=== PATIENT | female | born 1995 | race Caucasian/White ===

== ENCOUNTER 2022-03-16 12:30 | Outpatient (CLI) | payer OTHER, SELFPAY ==
--- NOTE | ~2022-03-16 | US_ITS ---
EXAMINATION: US OB /maternal detail DATE: 03/16/2022 13:46 INDICATION: Second trimester anatomic survey TECHNIQUE: Real-time ultrasound of the pelvis was performed. COMPARISON: None. FINDINGS: There is a single living fetus in breech presentation. The placenta is anterior and 8 mm from the int ernal cervical os. heart rate is 146 beats per minute (bpm). cardiac activity and movement are noted. The amniotic fluid index is subjectively normal. The cervical length is 5.1 cm. The following anatomy was identified as normal: 4 chamber heart 3 vessel cord cord insertion kidneys urinary bladder stomach spine diaphragm ventricles cisterna magna cerebellum The following biometric data were obtained: Biparietal diameter (BPD): 3.6 cm; head circumference (HC): 13.7 cm; abdominal circumference (AC): 12 .7 cm; femur length (FL): 2.6 cm. The femoral length to head circumference ratio is greater than two standard deviations above the mean . Estimated weight is 220 g +/- 33 g, which correlates with the 3rd percentile when 08/08/2022 is used as estimated date of delivery. As single measurements, these parameters are each equal to the following estimated gestational ages w ith ranges of +/- 2 standard deviations: BPD: 17 weeks 0 days +/- 1 weeks 1 days. HC: 17 weeks 1 days +/- 1 weeks 1 days. AC: 18 weeks 2 days +/- 2 weeks 0 days. FL: 18 weeks 0 days +/- 1 weeks 3 days. estimated gestational age based solely on measurements from this exam is 17 weeks 4 days +/- 1 weeks 2 days. IMPRESSION: 1. Single living fetus in breech presentation. 2. Estimated weight is 220 g +/- 33 g, which correlates with the 3rd percentile when 08/08/2022 is used as estimated date of delivery. 3. Low-lying placenta. 4. Femoral length to head circumference ratio greater than two standard deviations above the mean. Reviewed, dictated and finalized at location B. IMPRESSION: 1. Single living fetus in breech presentation. 2. Estimated weight is 220 g +/- 33 g, which correlates with the 3rd perc entile when 08/08/2022 is used as estimated date of delivery. 3. Low-lying placenta. 4. Femoral length to head circumference ratio greater than two standard deviati ons above the mean.
== END 2022-03-16 12:31 | disposition home or self-care (01) ==
PROVIDERS: Visit Provider Obstetrics & Gynecology
DX: Z34.92 Encounter for supervision of normal pregnancy, unspecified, second trimester (principal); Z3A.17 17 weeks gestation of pregnancy
CPT/HCPCS: 76805

== ENCOUNTER 2022-06-15 10:36 | Outpatient (CLI) | payer OTHER, SELFPAY ==
--- NOTE | ~2022-06-15 | US_ITS ---
EXAMINATION: US OB follow up DATE: 06/15/2022 11:29 INDICATION: Small for gestational age during third trimester TECHNIQUE: Real-time ultrasound of the pelvis was performed. The interpreting radiologist was not pre sent for the study. COMPARISON: None. FINDINGS: There is a single living fetus in vertex presentation. The placenta is anterior. heart rate is 143 beats per minute (bpm). The amniotic fluid index is 20.2 cm, which is normal (5th%-95%: 8.8-83. 8 cm at 21 weeks estimated gestational age). The following biometric data were obtained: BPD: 7.3 cm -> 29 weeks 2 days Head circumference: 26.4 cm -> 28 weeks 5 days Abdominal circumference: 27.5 cm -> 31 weeks 4 days Femur length: 6.2 cm -> 32 weeks 1 days Head circumference to abdominal circumference ratio: 0.96 (normal range 0.97-1.18). These measurements are otherwise concordant. Estimated weight: 1721 g (+/-) 258 g or 3 lbs. 13 oz. (+/-) 9 oz. IMPRESSION: 1. Single living fetus in vertex presentation with heart rate of 143 bpm. 2. Normal amniotic fluid index of 20.2 cm. 3. Estimated weight is 35th percentile by Hadlock criteria when 08/17/2022 is used as the estim ated date of delivery (GERALD). Please correlate with clinical information or earlier ultrasounds for mo st accurate GERALD. 4. Head circumference to abdominal circumference ratio 0.96 slightly below the normal range of 0.97-1 .18. Reviewed, dictated and finalized at location A. IMPRESSION: 1. Single living fetus in vertex presentation with heart rate of 143 bpm. 2. Normal amniotic fluid index of 20.2 cm. 3. Estimated weight is 35th percentile by Hadlock criteria when 2 is used as the estimated date of delivery (GERALD). Please correlate with clinic al information or earlier ultrasounds for most accurate GERALD. 4. Head circumference to abdominal circumference ratio 0.96 slightly below the normal range of 0.97-1.18.
== END 2022-06-15 10:37 | disposition home or self-care (01) ==
LOC: ANHIMG 10:44
PROVIDERS: Visit Provider Obstetrics & Gynecology
DX: O36.5999 Maternal care for other known or suspected poor fetal growth, unspecified trimester, other fetus (principal); Z3A.00 Weeks of gestation of pregnancy not specified
CPT/HCPCS: 76816

== ENCOUNTER 2022-12-10 11:56 | Emergency (ER) | payer OTHER, SELFPAY ==
[2022-12-10 12:04] VITALS: BP 119/71; PULSE 65; RESP 16; TEMP 36.7; O2SAT 100
--- NOTE | 2022-12-10 12:28 | ED.URI ---
HPI - URI/Sore Throat General Chief Complaint: Upper Respiratory Infection Stated Complaint: congestion/throat Time Seen by Provider: 12/10/22 12:29 Source: patient, RN notes reviewed and old records reviewed Mode of arrival: ambulatory Limitations: no limitations History of Present Illness HPI Narrative: 27 year old female who presents to [facility] care with 2 day history of sore throat, fatigue some nausea and sinus congestion. Patient reports she is unsure of fevers but has noted some sweats. Patient reports that she has had some nausea, denies any vomiting or diarrhea, Patient reports that she has been taking Ibuprofen for her discomfort. Patient reports that she has been COVID vaccinated and has had flu shot. Patient reports that children had strep last week. MD elicited complaint: sore throat, rhinorrhea and nasal congestion Onset (ago): day(s) (2) Pain scale (0-10): 8 Able to tolerate fluids by mouth: Yes Exacerbating factors: swallowing Treatments prior to arrival: ibuprofen Related Data Home Medications Medication Instructions Recorded Confirmed aripiprazole 10 mg tablet (Abilify) 10 mg PO DAILY 12/10/22 12/10/22 Allergies Allergy/AdvReac Type Severity Reaction Status Date / Time Penicillins Allergy Anaphylaxis Verified 12/10/22 12:10 Review of Systems Review of Systems: CONSTITUTIONAL: Reports malaise, chills, sweats, unsure if fever. EYES: Denies visual changes, redness, or discharge. ENT: Reports no rhinorrhea, positive for nasal congestion, sinus pain, no otalgia positive for sore throat. CARDIOVASCULAR: Denies chest pain, palpitations, or edema. RESPIRATORY: Reports no cough.? Denies dyspnea. GASTROINTESTINAL: Denies abdominal pain, positive nausea,no vomiting, diarrhea SKIN: Denies rash or itching. MUSCULOSKELETAL: Denies myalgia. NEUROLOGIC: Denies headache. All systems reviewed & are unremarkable except as noted in HPI and below PMFSH Past Medical History Medical History (Updated 12/12/22 @ 11:51 by Betsy Lemons NP) Bipolar 1 disorder, mixed Surgical History Surgical History (Updated 12/12/22 @ 11:47 by Betsy Lemons NP) Previous section x2 Social History Social History (Updated 12/12/22 @ 11:45 by Betsy Lemons NP) Smoking status: Never smoker Living arrangements: with family Gender identity (if verbalized by the patient): Female Comments At time of signature, agree with nursing past medical, surgical, social and family history. There is no relevant family history pertinent to the presenting complaint Exam Narrative: GENERAL: Well-appearing, well-nourished, and in no acute distress. HEAD: Normocephalic EYES: PERRLA, conjunctivae clear ENT: Nares clear, turbinates edematous and erythematous, clear discharge. Mucous membranes moist. TM pearly ken with dull light reflex bilaterally; no tragal tenderness. Oropharynx erythematous without lesions. Tonsils red not enlarged and without exudate, no drooling, no hoarseness, no trismus, uvula midline.post nasal drainage noted NECK: Supple. No lymphadenopathy CHEST: Clear to auscultation, breath sounds equal. No wheezing, rhonchi, rales, or stridor. No respiratory distress, speaks in full sentences.no cough noted, SAO2 100% on room air HEART: Regular rate and rhythm. No murmur heard. SKIN: Warm, dry, no rash. NEURO: Alert and oriented x3. PSYCH: Normal mood and affect Course Course Emergency Course: Patient is aware of diagnosis, understands and agrees to treatment plan.? Anticipatory guidance given.? Patient agrees to follow-up as directed and is aware of reasons to seek care at the emergency department. Portions of this record may have been created with voice recognition software Level of Care: Express Care Visit Vital Signs Vital signs: Vital Signs Temperature 36.7 C 12/10/22 12:04 Pulse Rate 65 12/10/22 12:04 Respiratory Rate 16 12/10/22 12:04 Blood Pressure
== END 2022-12-10 12:46 | disposition home or self-care (01) ==
PROVIDERS: Emergency Provider Registered Nurse
DX: J02.9 Acute pharyngitis, unspecified (principal); Z20.818 Contact with and (suspected) exposure to other bacterial communicable diseases; F31.9 Bipolar disorder, unspecified
CPT/HCPCS: 87081; 87880; 99213; G0463

== ENCOUNTER 2024-04-29 16:16 | Emergency (ER) | payer MEDICAID, SELFPAY ==
--- NOTE | ~2024-04-29 | CT_ITS ---
EXAMINATION: CT cervical spine wo con DATE: 04/29/2024 17:08 INDICATION: Neck pain radiating down the left arm. TECHNIQUE: Computed tomography (CT) of the cervical spine was performed without intravenous contrast. Automated exposure control and iterative reconstruction technique were employed. The dose-length pro duct was 195.84 mGy-cm. COMPARISON: None FINDINGS: There is kyphosis of cervical spine. Vertebral body heights are normal. There is moderately decreased disc height at C5-C6. The following disc levels are specifically discussed: C2-C3: There is no uncovertebral joint osteoarthritis. There is no facet joint osteoarthritis. There is no neural foraminal stenosis. There is no central canal stenosis. C3-C4: There is no uncovertebral joint osteoarthritis. There is mild right facet joint osteoarthritis . There is no neural foraminal stenosis. There is no central canal stenosis. C4-C5: There is no uncovertebral joint osteoarthritis. There is mild left facet joint osteoarthritis. There is no neural foraminal stenosis. There is mild central canal stenosis. C5-C6: There is mild left uncovertebral joint osteoarthritis. There is no facet joint osteoarthritis. There is moderate left neural foraminal stenosis. There is mild central canal stenosis. There is sev ere stenosis of left lateral recess. C6-C7: There is no uncovertebral joint osteoarthritis. There is no facet joint osteoarthritis. There is no neural foraminal stenosis. There is no central canal stenosis. C7-T1: There is no uncovertebral joint osteoarthritis. There is mild bilateral facet joint osteoarthr itis. There is no neural foraminal stenosis. There is no central canal stenosis. IMPRESSION: 1. Moderate spondylosis at C5-C6 and mild spondylosis at other levels. Reviewed, dictated and finalized at location A.
[2024-04-29 16:16] VITALS: BP 143/93; PULSE 88; RESP 16; TEMP 36.5; O2SAT 96
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
[2024-04-29] MEDS: ORPHENADRINE CITRATE 30 MG/ML 2 ML VIAL 60 MG IM (16:40)
[2024-04-29] MEDS: predniSONE 20 MG TABLET 40 MG PO (16:41)
[2024-04-29 16:55] LABS: Pregnancy On Board Control Positive; Urine Pregnancy Test Negative
[2024-04-29 17:42] VITALS: BP 127/84; PULSE 67; RESP 20; O2SAT 98
== END 2024-04-29 17:42 | disposition home or self-care (01) ==
LOC: CHSED 17:37
PROVIDERS: Emergency Provider Emergency Medicine
DX: M48.02 Spinal stenosis, cervical region (principal)
CPT/HCPCS: 72125; 81025; 96372; 99284; J2360; J7512

== ENCOUNTER 2024-07-17 07:42 | Emergency (ER) | payer OTHER, SELFPAY ==
[2024-07-17 07:42] VITALS: BP 107/72; PULSE 71; RESP 18; TEMP 36.6; O2SAT 98
--- NOTE | 2024-07-17 08:02 | ED_ITS ---
HPI - General Chief complaint: Urogenital-Female Stated complaint: Time Seen by Provider: 07/17/24 07:44 Source: patient Mode of arrival: ambulatory Limitations: no limitations History of Present Illness HPI Narrative: patient is a 28-year-old female who is about 1 month per history. Last menstrual period was a month ago. She has done 7 tests at home and they were all positive. She is having spotting for the past few days. No blood clots. She has had miscarriages in the past. She is having left greater than right lower pelvic pain which is sharp. Polyuria. Complaint: abdominal pain and vaginal bleeding Onset (ago): day(s) (3) Pain Consistency: intermittent Location: pelvis Severity: mild Severity scale (1-10): 2 Quality: Cramping and Sharp Radiation: pelvis Relieving factors: none Exacerbating factors: none Associated symptoms: abdominal pain and other ( Polyuria) Vaginal discharge: none Vaginal bleeding: light Patient : Yes OB History - Current : no complications OB History - Previous Pregnancies: miscarriage care: none Related Data : 7 Para: 2 Total number of abortions (spontaneous and elective): 4 Allergies Allergy/AdvReac Type Severity Reaction Status Date / Time Penicillins Allergy Anaphylaxis Verified 07/17/24 07:50 Review of Systems Review of Systems: All systems reviewed & are unremarkable except as noted in HPI and below Constitutional: Constitutional: Reports no additional constitutional complaints Eyes: Eyes: Reports no additional eye complaints ENT: Reports system reviewed and no additional complaints, except as documented Cardiovascular: Cardiovascular: Reports no additional cardiovascular complaints Respiratory: Respiratory: Reports no additional respiratory complaints Gastrointestinal: Gastrointestinal: Reports no additional gastrointestinal complaints Genitourinary: Genitourinary: Reports no additional female genitourinary complaints Musculoskeletal: Musculoskeletal: Reports no additional musculoskeletal complaints Integumentary/Breasts: Skin/Breast: Reports system reviewed and no additional complaints, except as docu Neurologic: Reports system reviewed and no additional complaints, except as documented Psychiatric: Psychiatric: Reports no additional psychiatric complaints Endocrine: Endocrine: Reports no additional endocrine complaints Hematologic/Lymphatic: Hematologic/Lymphatic: Reports no additional hematologic/lymphatic complaints Allergic/Immunologic: Allergic/Immunologic: Reports no additional allergic/immunologic complaints PMFSH Past Medical History Medical History Bipolar 1 disorder, mixed Surgical History Surgical History Previous section x2 Social History Social History Smoking status: Never smoker Living arrangements: with family Gender identity (if verbalized by the patient): Female Exam Const: General: healthy appearing Nutritional Appearance: well nourished Orientation/consciousness: patient oriented x3 HENMT: Head: normal to inspection Ears: external ears normal Face/Nose/Sinus: Normal external nose present Eyes: Conjunctivae: conjunctivae normal Pupils: Equal, round and reactive pupils present EOM: EOMs intact bilaterally Neck: Neck: normal visual inspection Chest: Chest palpation & inspection: normal inspection of the chest Resp: Effort & Inspection: normal respiratory effort and not labored Auscultation: clear to auscultation bilaterally and no crackles Cardio: Rate: regular rate Rhythm: regular rhythm Heart sounds: no murmurs GI: Inspection: non-distended GI Palp: Yes Soft to palpation, Yes Tenderness to palpation present (GI) ( left greater than right lower pelvis and suprapubic region), No Guarding due to palpation present (GI), No Rigid due to palpation, No Hernia present, No Palpable mass present and No Rebound tenderness present Auscultation: normal bowel sounds : General: No bladder normal to palpation ( tender) Back/Spine/Pelvis: Back: no CVA tenderness Skin: General skin exam: normal color Rashes: no rashes Wounds: no wounds Neuro: General: patient oriented x3 Cranial nerves: Yes Nystagmus not present Speech: normal speech Extrem: General: normal to inspection Psych: Mental Status: mental status grossly normal Affect: normal affect Attitude: cooperative Course Vital Signs Vital signs: Vital Signs Temperature 36.6 C 07/17/24 07:42 Pulse Rate 71 07/17/24 07:42 Respiratory Rate 18 07/17/24 07:42 Blood Pressure 107/72 07/17/24 07:42 Pulse Oximetry 98 07/17/24 07:42 Oxygen Delivery Room Air 07/17/24 07:42 Temperature 36.6 C 07/17/24 07:42 Pulse Rate 63 07/17/24 09:51 Respiratory Rate 16 07/17/24 09:51 Blood Pressure 111/67 07/17/24 09:51 Pulse Oximetry 100 07/17/24 09:51 Oxygen Delivery Room Air 07/17/24 09:51 MDM - OB/Uterine Contractions MDM Narrative Medical decision making narrative: patient is a 28-year-old female with spotting during 1st trimester . We will do a workup at this time for reassurance. Lab Data Attestation: I reviewed the patient's lab results. 07/17/24 08:10 07/17/24 08:10 Labs: Lab Results 07/17/24 Range/Units 08:10 WBC 6.5 (4.8-10.8) K/mm3 RBC 4.47 (4.20-5.40) M/mm3 Hgb 12.5 (12.0-15.0) g/dL Hct 36.9 (35.0-49.0) % MCV 82.6 (78.0-102.0) fL MCH 28.0 (27.0-31.0) pg MCHC 33.9 (32-36) g/dL RDW 13.6 (11.6-14.4) % Plt Count 207 (150-420) K/mm3 MPV 8.7 L (9.2-11.8) fl Immature Gran % (Auto) 0.5 H (0.0-0.0) % Neut % (Auto) 68.5 (50.0-70.0) % Lymph % (Auto) 24.8 (18.0-42.0) % [place] % (Auto) 5.4 (2.0-11.0) % Eos % (Auto) 0.5 L (1.0-6.0) % Baso % (Auto) 0.3 (0.0-1.0) % Lymph # (Auto) 1.60 (1.10-4.50) K/mm3 [place] # (Auto) 0.35 (0.10-0.90) K/mm3 Eos # (Auto) 0.03 (0.02-0.50) K/mm3 Baso # (Auto) 0.02 (0.00-0.10) K/mm3 Abs Immat Gran (auto) 0.03 H (0.00-0.00) K/mm3 Absolute Neuts (auto) 4.43 (1.70-7.20) K/mm3 Absolute Nucleated RBC 0.00 (0.00-0.00) K/mm3 Nucleated RBC % 0.0 (0-0.0) % PT 11.0 (9.50-12.1) Seconds INR 1.0 APTT 25.4 (23.9-30.70) Sec Sodium 137 (136-145) mmol/L Potassium 3.9 (3.5-5.1) mmol/L Chloride 103 (98-108) mmol/L Carbon Dioxide 27 (21-32) mmol/L Anion Gap 7 (4-12) mmol/L BUN 10 (7-18) mg/dL Creatinine 0.78 (0.55-1.02) mg/dL Estim Creat Clear Calc 70 ml/min Estimated GFR > 60 (59 - ) Glucose 92 (70-99) mg/dL Calculated Osmolality 283 L (285-295) mOsm/kg Calcium 8.8 (8.5-10.1) mg/dL Total Bilirubin 0.5 (0.00-1.00) mg/dL AST 6 L (15-37) U/L ALT 8 L (14-59) U/L Alkaline Phosphatase 89 (46-116) U/L Total Protein 6.8 (6.4-8.2) g/dL Albumin 3.8 (3.4-5.0) g/dL Beta HCG, Quant 480.00 H (0-6) mIU/mL Urine Color Light yellow (Yellow) Urine Appearance Clear (Clear) Urine pH 8.5 H (5.0-8.0) Ur Specific [place] 1.015 (1.010-1.020) Urine Protein Negative (Negative) Urine Glucose (UA) Negative (Negative) Urine Ketones Negative (Negative) Ur Blood (Man) Negative (Negative) Urine Nitrate Negative (Negative) Urine Bilirubin Negative (Negative) Urine Urobilinogen 0.2 (0.2-1.0) mg/dL Leukocyte Esterase Rfl Trace H (Negative) NIKOLE/UL Urine RBC None seen (0-2) /hpf Urine WBC 10-15 H (0-3) /hpf Ur Squamous Epith Cells Few (Few) /hpf Urine Bacteria 1+ H (None) /hpf Discharge Plan Discharge Clinical Impression: First trimester bleeding, UTI (urinary tract infection) Patient Disposition: Home, Self-Care Condition: Stable Instructions: Antibiotic Form, Threatened Miscarriage (ED), Urinary Tract Infection in (ED) Additional Instructions: Please follow-up with the primary doctor in the OBGYN in the next week. Come back to the ER with any new worse abdominal pain or heavy bleeding. Prescriptions: New nitrofurantoin monohyd/m-cryst [Macrobid] 100 mg capsule 100 mg PO BID 7 Days Qty: 14 0RF Rx Instructions: must administer with a meal/food Follow-up/Referrals: UNKNOWN,DOCTOR [Primary Care Provider] - Time of Disposition: 10:06
[2024-07-17 08:17] LABS: Basophils Absolute Auto 0.02 K/mm3 (0.00-0.10); Basophils Percent Auto 0.3 % (0.0-1.0); Eosinophils Absolute Auto 0.03 K/mm3 (0.02-0.50); Eosinophils Percent Auto 0.5 % (1.0-6.0); Hematocrit 36.9 % (35.0-49.0); Hemoglobin 12.5 g/dL (12.0-15.0); Immature Granulocyte Absolute 0.03 K/mm3 (0.00-0.00); Immature Granulocyte Percent A 0.5 % (0.0-0.0); Lymphocytes Percent Auto 24.8 % (18.0-42.0); Mean Corpuscular HGB Conc 33.9 g/dL (32-36); Mean Corpuscular Volume 82.6 fL (78.0-102.0); Mean Platelet Volume 8.7 fl (9.2-11.8); Monocytes Absolute Auto 0.35 K/mm3 (0.10-0.90); Monocytes Percent Auto 5.4 % (2.0-11.0); Neutrophils Absolute Auto 4.43 K/mm3 (1.70-7.20); Neutrophils Percent Auto 68.5 % (50.0-70.0); Platelet Count Result 207 K/mm3 (150-420); Red Blood Count 4.47 M/mm3 (4.20-5.40); Red Cell Distribution Width 13.6 % (11.6-14.4); White Blood Count 6.5 K/mm3 (4.8-10.8)
[2024-07-17 08:20] LABS: Add Urine Microscopic? YES; Appearance Urine Clear (Clear); Bilirubin Urine Negative (Negative); Blood Urine Negative (Negative); Color Urine Light Yellow (Yellow); Glucose Urine UA Negative (Negative); Ketones Urine Negative (Negative); Leukocyte Esterase Ur Trace LEU/UL (Negative); Nitrate Urine Negative (Negative); Protein Urine Negative (Negative); Specific Grav Ur 1.015 (1.010-1.020); Urobilinogen Urine 0.2 mg/dL (0.2-1.0); pH Urine 8.5 (5.0-8.0)
[2024-07-17 08:26] LABS: Bacteria Urine 1+ /hpf; RBC Urine None seen /hpf (0-2); Squamous Epithelial Cell Urine Few /hpf (Few)
[2024-07-17 08:32] LABS: Partial Thromboplastin Time 25.4 Sec (23.9-30.70)
[2024-07-17 08:36] LABS: Anion Gap 7 mmol/L (4-12); Blood Urea Nitrogen 10 mg/dL (7-18); Carbon Dioxide 27 mmol/L (21-32); Chloride 103 mmol/L (98-108); Estimated CRCL calculation 70 ml/min; Estimated Glomerular Filt Rate > 60; Potassium 3.9 mmol/L (3.5-5.1); Sodium 137 mmol/L (136-145)
[2024-07-17 08:37] LABS: Alanine Aminotransferase 8 U/L (14-59); Albumin Level 3.8 g/dL (3.4-5.0); Alkaline Phosphatase 89 U/L (46-116); Aspartate Amino Transferase 6 U/L (15-37); Bilirubin,Total 0.5 mg/dL (0.00-1.00); Calcium 8.8 mg/dL (8.5-10.1); Glucose 92 mg/dL (70-99); Osmolality Calculated 283 mOsm/kg (285-295); Total Protein 6.8 g/dL (6.4-8.2)
[2024-07-17 09:51] VITALS: BP 111/67; PULSE 63; RESP 16; O2SAT 100
--- NOTE | 2024-07-19 14:14 | PC.NURSE ---
PRELIMINARY URINE CULTURE REPORT: PROTEUS MIRABILIS, WILL WAIT ON FINAL C&S PER DR. ALTAMIRANO.
--- NOTE | 2024-07-20 13:14 | PC.NURSE ---
FINAL URINE CULTURE PROTEUS MIRABILIS , MACROBID IS RESISTANCE. NEW ANTIBIOTIC PER DR DESIR.
--- NOTE | 2024-07-21 09:06 | PC.NURSE ---
pt notified of need to change medication for bacteria in urine per urine culture. voiced understanding. informed to stop macrobid. called in new rx Bactrim DS --1 po BID x 7 days called to [facility] with [facility] staff.
== END 2024-07-17 10:07 | disposition home or self-care (01) ==
PROVIDERS: Emergency Provider Emergency Medicine
DX: O20.9 Hemorrhage in early pregnancy, unspecified (principal); O23.41 Unspecified infection of urinary tract in pregnancy, first trimester; N39.0 Urinary tract infection, site not specified; Z3A.00 Weeks of gestation of pregnancy not specified
CPT/HCPCS: 36415; 80053; 81001; 84702; 85025; 85610; 85730; 87086; 87186; 99283

== ENCOUNTER 2025-02-28 13:52 | Observation (INO) | payer MEDICAID, SELFPAY ==
[2025-02-28] VITALS (9 sets, daily range): BP systolic 104–140; BP diastolic 64–82; PULSE 68–86; RESP 20; TEMP 36.7–36.8; O2SAT 97–99; BMI 29.1
--- NOTE | ~2025-02-28 | US_ITS ---
EXAMINATION: US OB BPP wo non-stress DATE: 03/01/2025 8:28 CDT INDICATION: Decelerations TECHNIQUE: Real-time transabdominal obstetric ultrasound. FINDINGS: 7 para 2 AB 4 There is a single intrauterine gestation in vertex presentation. The placenta is posterior without placenta previa. Amniotic fluid index measures 10.4 cm, within normal limits (of 7.7 to 24.9 cm). cardiac activity and movement is noted with a heart rate of 128 beats per minute. Biophysical profile: breathin of 2 movement: 2 of 2 tone: 2 of 2 Amniotic fluid pocket: 2 of 2 Total score: 6 of 8 Approximate gestational age is 36 weeks and 2 days. IMPRESSION: Single intrauterine gestation in posterior presentation. No respiration is visualized, despite prolonged interrogation. Total biophysical profile score of 6 out of 8, consistent with preliminary results, provided at the t sheryl of examination. Reviewed, dictated and finalized at location A. IMPRESSION: Single intrauterine gestation in posterior presentation. No respiration is visualized, despite prolonged interrogation. Total biophysical profile score of 6 out of 8, consistent with preliminary resu lts, provided at the time of examination.
--- NOTE | ~2025-02-28 | US_ITS ---
EXAMINATION: US OB BPP wo non-stress DATE: 03/01/2025 13:11 CDT INDICATION: Biophysical profile performed approximately 4 hours earlier yielding a 6 out of 8 TECHNIQUE: Real-time transabdominal obstetric ultrasound. FINDINGS: There is a single intrauterine gestation in vertex presentation. The placenta is posterior without placenta previa. cardiac activity and movement is noted with a heart rate of 136 beats per minute. Biophysical profile: breathin of 2 movement: 2 of 2 tone: 2 of 2 Amniotic fluid pocket: 2 of 2 Total score: 8 of 8 Amniotic fluid index measures 13.1 cm, within normal limits (of 7.7 to 24.9 cm). IMPRESSION: 1. Single intrauterine gestation in vertex presentation. 2: Total biophysical profile score of 8 out of 8. Reviewed, dictated and finalized at location A.
--- OUTSIDE RECORDS SUMMARY | 2025-02-28 16:31 | XMS_ITS | Clinical Summary ---
Author Organization [facility] Address [address] [place] [address] Phone Care Team Providers Care [employer] Name Role Phone Sammy Garcia MD Primary Care Provider [phone] Herbert Schilling MD Unavailable [phone] Allergies Active Allergy Reactions Criticality Noted Date Comments Penicillins Hives,Shortness of Breath High 6 Medications naproxen (NAPROSYN) 500 MG Tablet Take 1 Tablet by mouth 2 times daily (with meals). 30 Tablet 01/31/2024 Active Immunizations Immunization Administration Dates Next Due Influenza Vaccine, Quadrivalent, PF 04/24/2016 TDAP Vaccine 04/24/2016 Family History Medical History Relation Name Comments No Known Problems Brother No Known Problems Child No Known Problems Father No Known Problems Maternal Grandfather No Known Problems Maternal Grandmother Labor Mother No Known Problems Paternal Grandfather No Known Problems Paternal Grandmother No Known Problems Sister Relation Name Status Comments Brother Child Father Maternal Grandfather Maternal Grandmother Mother Paternal Grandfather Paternal Grandmother Sister Social History Tobacco Use Types Packs/Day Years Used Date Smoking Tobacco: Former Cigarettes Q uit: 03/13/2015 Smokeless Tobacco: Never Alcohol Use Standard Drinks/Week Comments No 0 (1 standard drink = 0.6 oz pur e alcohol) Sexually Active Control Partners Comments Yes Male Comments No Sex and Gender Information Value Date Recorded Sex Assigned at Not on file Legal Sex Female 11:43 PM CDT Gender Identity Not on file Sexual Orientation Not on file Last Filed Vital Signs Vital Sign Reading Time Taken Comments Blood Pressure 110/65 01/31/2024 1:30 AM CDT Pulse 83 01/31/2024 1:30 AM CDT Temperature 36.3 C (97.3 F) 01/30/2024 10:23 PM CDT Respiratory Rate 18 01/31/2024 1:30 AM CDT Oxygen Saturation 100% 01/31/2024 1:30 AM CDT Inhaled Oxygen Concentration - - Weight 59 kg (130 lb) 01/30/2024 10:23 PM CDT Height 154.9 cm (5' 1) 01/30/2024 10:23 PM CDT Body Mass Index 24.56 01/30/2024 10:23 PM CDT Plan of Treatment Health Maintenance Due Date Last Done Comments Hepatitis C Virus (HCV) Screening 1995 Human Papillomavirus (HPV) Immunization (1 - 3-dose series) 12/05/2010 Pap Smear 12/05/2016 SARS-COV-2 Immunization ( season) 2024 01/12/2021 Influenza Immunization (#1) 04/22/202506/23, 06/16/2022, 04/24/2016, Additional history exists Td Immunization Every 10 Years (Adults With 1 Tdap) 04/24/2026 04/24/2016 Respiratory Syncytial Virus (RSV) Immunization (Adult) (1 - 1-dose 75+ series) 12/05/2070 Hepatitis B Immunization Completed 996, 03/23/1996, 1995 DTaP/Tdap/Td Immunization Discontinued 2015, 05/26/2000, 09/26/1997, Additional history exists Meningococcal Immunization (ACWY) Aged Out No longer eligible based on patient's age to complete this topic Pneumococcal Immunization Combined Aged Out No longer eligible based on patient's age to complete this topic Rotavirus Immunization Aged Out No lo nger eligible based on patient's age to complete this topic Insurance MEDICAID [facility] MEDICAID [facility] Advance Directives * Full Code (Latest Code Status on File) Date Activated Date Inactivated Comments 04/13/2016 6:12 PM 04/13/2016 11:44 PM CPR-Full Tr eatment: FULL ARREST: Attempt Resuscitation/CPR wit intubation and mechanical ventilation. PRE-ARREST: Use entire range of life support measures to stabilize the patient. * Full Code Date Activated Date Inactivated Comments 04/02/2016 1:55 PM 04/02/2016 6:19 PM CPR-Full Angelito atment: FULL ARREST: Attempt Resuscitation/CPR wit intubation and mechanical ventilation. PRE-ARREST: Use entire range of life support measures to stabilize the patient. Care Teams Teacher [employer] Relationship Specialty Start Date End Date Sammy Garcia MD [address] [place] [address] [place] [address] PCP - General Family Medicine 05/14/24 Herbert Schilling MD [address] [place] [address] Family Medicine 05/14/24
--- OUTSIDE RECORDS SUMMARY | 2025-02-28 16:31 | XMS_ITS | Encounter Summary ---
Author Organization [facility] Address [address] [facility] [place] [address] Phone Care Team Providers Care Clay Grinder Name Role Phone Hrebert Schilling MD Primary Care Provider [phone] Sammy Garcia MD Primary Care Provider [phone] Herbert Schilling MD Unavailable [phone] Reason for Referral * PT/OT/ST (Routine) - Closed Specialty Diagnoses / Procedures Referred By Contsaleem t Referred To Contact Physical Therapy Diagnoses Spinal stenosis, cervical region Sammy Garcia MD [address] [place] [address] [place] [address] Phone: tel: fax: [facility] [address] [address] Phone: tel: fax: Referral ID Status Reason Start Date Expiration Date Visits Re quested Visits Authorized [id number] Closed 05/11/2024 50 50 Scheduling Instructions Encounter Details Date Type Department Care Team (Late st Contact Info) Description 05/11/2024 Transcribe Orders [facility] [address] [place] [address] Sammy Garcia MD [address] [place] [address] [place] [address] Spinal stenosis, cervical region (Primary Dx) Social History Tobacco Use Types Packs/Day Years Used Date Smoking Tobacco: Never Assessed Comments Unknown Sex and Gender Information Value Date Recorded Sex Assigned at Not on file Legal Sex Female 11:43 PM CDT Gender Identity Not on file Sexual Orientation Not on file documented as of this encounter Plan of Treatment Scheduled Referrals Name Type Priority Associated Diagnoses Orde r Schedule PHYSICAL THERAPY REFERRAL Outpatient Referral Routine Spinal stenosis, cervical region Expected: 05/11/2024, Expires: 05/11/2025 documented as of this encounter Visit Diagnoses Diagnosis Spinal stenosis, cervical region- Primary documented in this encounter Care Teams Clay Grinder Relationship Specialty Start Date End Date Herbert Schilling MD [address] [facility] [place] [address] PCP - General Family Medicine 08/25/21 05/13/24 Sammy Garcia MD [address] [place] [address] [place] [address] PCP - General Family Medicine 05/14/24 Herbert Schilling MD [address] [place] [address] [place] [address] Family Medicine 05/14/24 documented as of this encounter
--- OUTSIDE RECORDS SUMMARY | 2025-02-28 16:31 | XMS_ITS | Clinical Summary ---
Author Organization [facility] at the [facility] Address [address] [place] [address] Care Team Providers Care Bead Wire Insulator Name Role Phone Herbert Schilling MD Primary Care Provider [phone] Herbert Schilling MD Unavailable [phone] No, Physician Unavailable Allergies Active Allergy Reactions Criticality Noted Date Comments Penicillins Anaphylaxis High Medications acetaminophen 500 mg capsuleIndicati ons:Pain Take 2 capsules (1,000 mg total) by mouth every 6 (six) hours as needed for pain 60 tablet 1 07/06/2022 Active gabapentin (NEURONTIN) 100 mg capsule Take 1 capsule (100 mg total) by mouth 3 (three) times a day as needed (incisional burning) 30 capsule 07/06/2022 Active ibuprofen (ADVIL,MOTRIN) 600 mg tabletIndicatio ns:Cramps Take 1 tablet (600 mg total) by mouth every 6 (six) hours as needed for pain 60 tablet 1 07/06/2022 Active ARIPiprazole (ABILIFY) 10 mg tablet Take 1 tablet (10 mg total) by mouth daily Active methylPREDNISol one (MEDROL DOSEPACK) 4 mg Dosepack TAKE 6 TABLETS ON DAY 1 DIRECTED ON PACKAGE AND DECREASE BY 1 TAB EACH DAY FOR A TOTAL OF 6 DAYS 10/23/2022 Active cyclobenzaprine (FLEXERIL) 5 mg tabletIndicatio ns:Muscle Spasm Take 1 tablet (5 mg total) by mouth 2 (two) times a day as needed for muscle spasms for up to 30 doses 30 tablet 12/02/2022 Active HYDROcodone-clay taminophen (NORCO) 5-325 mg per tabletIndicatio ns:Pain Take 1 tablet by mouth every 6 (six) hours as needed for pain for up to 10 doses 10 tablet 02/14/2024 Active Active Problems Problem Noted Date Diagnosed Date labor without delivery 07/02/2022 delivery delivered 07/02/2022 Overview (07/06/2022): # ID: Afebrile. No signs/symptoms of infection. #BV: on admission, for Flagyl postop. # Heme: EBL 600 mL. No symptoms acute blood loss anemia. # CV/Pulm: Vital signs stable, within normal limits. # GI/: Tolerating PO. Voiding spontaneously. # Pain: poorly controlled with above regimen; added gabapentin, well controlled on POD3. # Depression: stable on meds. Offer PBHS. # VoV, major trauma prior to this admission: SW and [facility]WARE teams following # Subconjunctival hemorrhage: bleeding noted bilaterally (R >L), posteriorly, blurry vision noted in R eye. Mostly resolved on POD3. # Post DVT prophylaxis: The patient has the following MAJOR risk factors none and the following MINOR risk factors delivery. SCDs ordered for VTE prophylaxis. # MOC: Depo-provera # MOF: Both formula and . Urine drug screen not indicated. Patient informed of results: N/A. # COVID Vaccination Status: Previously received # Disposition: Patient plans to follow up with primary OB, she will call for 2 week appointment Desires discharge home today. Cervical muscle strain, subsequent encounter 05/2021 Cervical spondylosis 12/29/2020 Immunizations Immunization Administration Dates Next Due Influenza, Trivalent, IM (MDV) 06/11/2015 Influenza, Unspecified 06/16/2022 MMR 07/06/2022(Deferred: No longer n eeded) Surgical History Surgery Date Site/Laterality Comments SECTION Medical History Medical History Date Comments Anxiety Heart murmur History of transfusion 04/2016 Social History Tobacco Use Types Packs/Day Years Used Date Smoking Tobacco: Never Smokeless Tobacco: Never Tobacco Cessation:Counseling Given: Not Answered Alcohol Use Standard Drinks/Week Comments Yes 0 (1 standard drink = 0.6 oz pur e alcohol) Social Connection and Isolat ion Panel [NHANES] Answer Date Recorded In a typical week, how many times do you talk on the phone with family, friends, or neighbors? More than three times a week 07/05/2022 How often do you get togethe r with friends or relatives? Three times a week 07/05/2022 How often do you attend chur ch or druze services? Never 07/05/2022 Do you belong to any clubs o r organizations such as scientology groups, unions, fraternal or athletic groups, or school groups? No 07/05/2022 How often do you attend meet ings of the clubs or organizations you belong to? Never 07/05/2022 Are you , , di vorced, , never , or living with a partner? 07/05/2022 AUDIT-C Answer Date Recorded Q1: How often do you have a drink containing alc ohol? 2-4 times a month 12/02/2022 Q2: How many drinks containi ng alcohol do you have on a typical day when you are drinking? 1 or 2 12/02/2022 Q3: How often do you have si x or more drinks on one occasion? Never 12/02/2022 Overall Financial Resource Strain (CARDIA) Answe r Date Recorded How hard is it for you to pa y for the very basics like food, housing, medical care, and heating? Hard 07/05/2022 [facility] - Occupational Stress Questionnaire Answer Date Recorded Do you feel stress - tense, restless, nervous, or anxious, or unable to sleep at night because your mind is troubled all the time - these days? Very much 06/29/2022 Hunger Vital Sign Answer Date Recorded Within the past 12 months, y ou worried that your food would run out before you got the money to buy more. Never true 12/03/19 23 Within the past 12 months, t he food you bought just didn't last and you didn't have money to get more. Never true 12/02/2022 PRAPARE - Transportation Answer Date Re corded In the past 12 months, has l ack of transportation kept you from medical appointments or from getting medications? Yes 06/22 In the past 12 months, has l ack of transportation kept you from meetings, work, or from getting things needed for daily living? Yes 07/05/2022 Housing Stability Vital Sign Answer Lew e Recorded In the last 12 months, was t here a time when you were not able to pay the mortgage or rent on time? No 07/05/2022 In the last 12 months, how many places have you lived? 1 07/05/2022 In the last 12 months, was t here a time when you did not have a steady place to sleep or slept in a prison (including now)? No 07/05/2022 [place] Depression Scale Answer Date Recorded [place] Depression Scale Total 21 07/26/2022 The thought of harming myself has occurred to me . Never 07/26/2022 Personal Safety Answer Date Recorded Have you ever been in or are you currently in a harmful physical or emotional relationship or is someone making you feel afraid or unsafe? 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 Gender Identity Female 01/12/2023 4:22 PM CDT Sexual Orientation Not on file Obstetrics History Para Term AB IAB SAB Ectopic Multiple Livin g Live Births 12 2 1 1 8 0 4 0 2 2 Date Outcome GA Total Labor Labor/2nd/3rd Weight Sex Type Anes PTL Nadira A1 A5 Name Clin SAB SAB SAB SAB AB AB AB AB 2015 Term 40w 2d 0h 01m 0h 01m 3.44 kg (7 lb 9.3 oz) F CS-LT ranv Epidur al N Livin g 9 9 SANTOS, GIRL A (ROSA IS) Devin lopez MD Complications:Cephalopelvic Disproportion Delivery Location:[facility] 2021 33w 3d 0h 02m 0h 02m 2.04 kg (4 lb 8 oz) F C-Sec tion Spinal Y Livin g 3 5 GREEN ,GIRL SANDOR S Sylvain zendejas, Emir maynard MD Complications:None Delivery Location:[facility] Main C ampus ([facility] L AND D PROCEDURE) Last Filed Vital Signs Vital Sign Reading Time Taken Comments Blood Pressure 122/74 02/14/2024 11:00 AM CDT Pulse 57 02/14/2024 11:00 AM CDT Temperature 36.9 C (98.5 F) 02/14/2024 7:58 AM CDT Respiratory Rate 18 02/14/2024 7:58 AM CDT Oxygen Saturation 100% 02/14/2024 11:00 AM CDT Inhaled Oxygen Concentration - - Weight 59 kg (130 lb) 02/14/2024 7:58 AM CDT Height 154.9 cm (5' 1) 01/02/2024 5:57 PM CDT Body Mass Index 24.56 01/02/2024 5:57 PM CDT Plan of Treatment Health Maintenance Due Date Last Done Comments Cervical Cancer Screening 1995 Hepatitis C Screening 1995 Varicella Vaccines (1 of 2 - 13+ 2-dose series) 12/05/2008 Hepatitis B Screening 12/05/2013 Regular Well Visit/Exam 18-64 12/05/2013 Depression Screening 07/26/2023 07/26/2022 Influenza Vaccine (Season Ended) 2025 06/16/2022, 04/24/2016, 06/11/2015 DTaP/Tdap/Td Vaccine (2 - Td or Tdap) 04/24/2026 04/24/2016 HPV Vaccines Aged Out No longer eligi ble based on patient's age to complete this topic Pneumococcal vaccine <65 Aged Out No longer eligible based on patient's age to complete this topic Insurance Advance Directives For more information, please contact: [phone] * Full Code (Latest Code Status on File) Date Activated Date Inactivated Comments 07/02/2022 11:37 PM 07/06/2022 3:49 PM * Full Code Date Activated Date Inactivated Comments 07/02/2022 1:35 PM 07/02/2022 11:37 PM Care Teams Bead Wire Insulator Relationship Specialty Start Date End Date Herbert Schilling MD PCP - General Family Medicine 07/01/22 Herbert Schilling MD Family Medicine 07/01/22 No, Physician 05/13/21
--- OUTSIDE RECORDS SUMMARY | 2025-02-28 16:32 | XMS_ITS | Referral Summary ---
Author Organization [facility] at the [facility] Address [address] [place] [address] Care Team Providers Care Pot Lining Supervisor Name Role Phone Herbert Schilling MD Primary Care Provider [phone] Herbert Schilling MD Unavailable [phone] No, Physician Unavailable Allergies Active Allergy Reactions [...] 06/16/2022 MMR 07/06/2022(Deferred: No longer n eeded) Social History Tobacco Use Types Packs/Day Years [...] often do you attend chur ch or holiness services? Never 07/05/2022 Do you belong to any clubs o r organizations such as latter day groups, unions, fraternal or athletic groups, or [...] housing, medical care, and heating? Hard 07/05/2022 [facility] of Occupat ional Health - Occupational Stress [...] place to sleep or slept in a group home (including now)? No 07/05/2022 Mitchell Depression Scale Answer Date Recorded Mitchell Depression Scale Total 21 07/26/2022 The thought [...] on file Legal Sex Female 9:44 AM MITTEN SEWER Gender Identity Female 01/12/2023 4:22 PM CDT Sexual Orientation Not on file Last Filed [...] 01/02/2024 5:57 PM CDT Plan of Treatment Not on file Insurance [facility] Advance Directives For more information, please contact: [phone] * Full Code (Latest Code Status on File) Date Activated Date Inactivated Comments 07/02/2022 11:37 PM 07/06/2022 3:49 PM * Full Code Date Activated Date Inactivated Comments 07/02/2022 1:35 PM 07/02/2022 11:37 PM Care Teams Pot Lining Supervisor Relationship Specialty Start Date End Date Herbert Schilling MD PCP - General Family Medicine 07/01/22 Herbert Schilling MD Family Medicine 07/01/22 No, Physician 05/13/21
--- OUTSIDE RECORDS SUMMARY | 2025-02-28 16:32 | XMS_ITS | Clinical Summary ---
Author Organization [facility] Address [address] [place] [address] Care Team Providers Care Drafter Chief Design Name Role Phone Unavailable Primary Care Provider Unavailabl e Source Comments [facility],non-owned Affiliates and Associated Physician Practices is amultiple site organization consisting of ambulatory clinics and hospital sitesin [place], [place], [place] and [place]. This disclosure is being madepursuant to the Care Everywhere program and may not contain all information available regarding this patient. Last updated 18.[facility] Allergies Active Allergy Reactions Criticality Noted Date Comments Penicillins Unknown 12/07/2024 Encounters Date Type Department Care Team Description 12/21/2024 9:45 AM CDT - 12/21/2024 11:59 PM CDT Hospital Encounter [facility] Women's Health Maternal & Care [address] [place] [id number] Head, Nyeda Quintero MD Discharge Disposition: Home or Self Care from Last 3 Months Social History Tobacco Use Types Packs/Day Years Used Date Smoking Tobacco: Never Assessed Estimated Date of Delivery Comme nts Yes 03/27/2025 Based on Patient Reported Sex and Gender Information Value Date Recorded Sex Assigned at Not on file Legal Sex Female 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 Gender Identity Not on file Sexual Orientation Not on file Plan of Treatment Health Maintenance Due Date Last Done Comments HIV SCREENING 12/05/2010 HEPATITIS C SCREENING 12/01/2013 DTAP/TDAP/TD VACCINES (1 - Tdap) 12/05/2014 HEPATITIS B VACCINE (1 of 3 - 19+ 3-dose series) 12/05/2014 PAP SMEAR 12/05/2016 COVID-19 VACCINE ( season) 2024 DEPRESSION SCREENING 08/22/2024 OB-ONE HOUR GLUCOSE 12/19/2024 OB-TDAP CURRENT 12/26/2024 04/24/2016 OB-RHOGAM INJECTION 01/02/2025 OB-GROUP B STREP SCREEN 02/20/2025 INFLUENZA VACCINE (Season Ended) 2025 07/15/2023, 06/16/2022, 04/24/2016, Additional history exists ZOSTER VACCINE (1 of 2) 12/05/2045 HIB VACCINE Aged Out No longer eligi ble based on patient's age to complete this topic HPV VACCINE Aged Out No longer eligi ble based on patient's age to complete this topic MENINGOCOCCAL (Group B) VACCINE SHARED DECISION-MAKING Aged Out No longer eligible based on patient's age to complete this topic MENINGOCOCCAL GROUPS A/C/Y/W VACCINE Aged Out No longer eligible based on patient's age to complete this topic PNEUMOCOCCAL VACCINE Aged Out No long er eligible based on patient's age to complete this topic Respiratory Syncytial Virus (RSV) Vaccine Pt: or over 60 yrs (No Doses Required) Completed Procedures Procedure Name Priority Date/Time Associated Diagnosis Comments SONOGRAM - COMPLETE Routine 12/21/2024 9 :38 AM CDT Sixth (HCC) History of delivery Encounter for follow-up ultrasound of anatomy (HCC) Encounter for ultrasound to assess growth (HCC) with 26 completed weeks gestation (HCC) from Last 3 Months Results * SONOGRAM - COMPLETE (12/21/2024 9:38 AM CDT) Linked Results Indication ======== Bipolar (no current medication) History ====== OB History 6. Para 2 [id number] 1. live . Details: delivery, Full term 2. live . Details: delivery, PTL/PTD at 33 weeks 3. miscarriage 4. miscarriage 5. miscarriage Lab Tests Test Date Result NIPT Low risk, Male Maternal Assessment Physical Exam Height 155 cm, 5 ft 1 in. Weight 65 kg, 143 lb. Initial weight 63 kg, 138 lb. BMI 27.02 kg/m . Initial BMI 26.08 kg/m . Weight gain 2 kg, 5 lb Method ====== Transabdominal ultrasound. View: Sufficient ========= Carranza . Number of fetuses: 1 Dating ====== Date Details Gest. age GERALD Stated GERALD 26 w + 2 d 03/27/2025 Previous U/S 08/21/2024 GA, GA 8 w + 6 d 26 w + 2 d 03/27/2025 U/S 12/21/2024 based upon AC, BPD, Femur, HC 26 w + 1 d 03/28/2025 Assigned dating based on ultrasound (GA), selected on 11/19/2024 26 w + 2 d 03/27/2025 General Evaluation Cardiac activity present. FHR 146 bpm. Presentation: cephalic Placenta: Placental site: posterior Umbilical cord: Cord vessels: 3 vessel cord - previously documented. Insertion site: normal insertion - previously documented Amniotic fluid: Amount of AF: normal. MVP 4.8 cm Biometry BPD 65.0 mm 26w 2d 38% Hadlock HC 240.5 mm 26w 1d 20% Hadlock AC 220.5 mm 26w 3d 48% Hadlock Femur 47.5 mm 25w 6d 24% Hadlock Humerus 44.0 mm 26w 1d 41% Ross HC / AC 1.09 Weight Calculation: EFW 908 g 36% Hadlock EFW (lb,oz) 2 lb 0 oz EFW by Hadlock ([id number]) appropriate Growth Overview Exam date GA BPD (mm) HC (mm) AC (mm) FL (mm) HL (mm) EFW (g) 11/19/2024 21w 5d 48.6 13% 192.7 30% 175.2 66% 35.8 28% 34.9 58% 456 50% 12/21/2024 26w 2d 65 38% 240.5 20% 220.5 48% 47.5 24% 44 41% 908 36% Anatomy The following structures appear normal: Heart / Thorax 4-chamber view. RVOT view. LVOT view. 5-lxqzid-kalbqzr view. Aortic arch view. Ductal arch view. Great vessels. Diaphragm. Extremities / Skeleton Hands. The following structures were documented previously: Head / Neck Cranium. Lateral ventricles. Choroid plexus. Midline falx. Cavum septi pellucidi. Cerebellum. Cisterna magna. Thalami. Nuchal fold. Face Lips. Profile. Nose. Nasal bone. Orbits. Heart / Thorax 3-vessel view. Situs. Bicaval view. Right lung. Left lung. Abdomen Cord insertion. Stomach. Kidneys. Bladder. Bowel. Genitals. Spine Cervical spine. Thoracic spine. Lumbar spine. Sacral spine. Extremities / Skeleton Arms. Legs. Feet. sex: male. Impression ========= Single, live, intrauterine at 26w 2d The size is appropriate. The amniotic fluid volume is normal. No major malformations were seen within the limitations of ultrasound Comment ======== ultrasound alone cannot detect all structural, genetic, or functional , placental, or maternal abnormalities Follow-up ======== Repeat ultrasound evaluation is recommended as is clinically indicated. Coding ====== Procedures [id number]: US Preg Uterus Follow Up [facility] PACS Anatomical Region Laterality Modality Other 12/21/2024 9:38 AM CDT us Provider Unknown [facility] ORDERABLES Edited Result - Final from Last 3 Months Insurance MEDICAID - [place] [facility] MEDICAID - OUT OF [facility]
[2025-02-28 16:59] LABS: Add Urine Microscopic? YES; Appearance Urine Clear (Clear); Glucose Urine UA Negative (Negative); Leukocyte Esterase Ur Negative LEU/UL (Negative); Nitrate Urine Negative (Negative); Specific Grav Ur 1.017 (1.001-1.035)
[2025-02-28] MEDS: TERBUTALINE SULFATE 1 MG/ML VIAL 0.25 MG SUB-Q (18:28)
[2025-02-28] MEDS: LACTATED RINGERS 1,000 ML 999 ML IV CONT (18:58)
--- NOTE | 2025-02-28 19:32 | OBADM ---
This patient, Ricardo Pena, admitted to the OB room Labor/Delivery/Recovery 120 for observation. Patient/family oriented to hospital policies and general routines including ID bracelet, bed and alarms, visiting hours, pain management, procedures, bathroom and other care routines, personal items, smoking policy, room service/diet, and visiting hours. Patient/Family are encouraged to report perceived risks to care and to ask questions if they do not understand what they are told or what they should do.
[2025-02-28] MEDS: LACTATED RINGERS 1,000 ML 125 ML IV CONT (22:28)
[2025-03-01 00:35] VITALS: BP 99/56; PULSE 70; TEMP 36.7
[2025-03-01 04:57] VITALS: PULSE 69; O2SAT 99
[2025-03-01 04:58] VITALS: BP 110/62; PULSE 69; TEMP 36.2
[2025-03-01 06:24] VITALS: BP 116/64; PULSE 64
[2025-03-01 06:25] VITALS: TEMP 36.3
--- NOTE | 2025-03-01 08:30 | PC.NURSE ---
Dr. Alvarado on unit. Informed of BPP results. Tracing reviewed. Orders received to repeat BPP at 1200 and call with results.
--- NOTE | 2025-03-04 13:37 | P.PNOB_ITS ---
OB - Triage/Final Diagnosis Visit Information Comments/Additional reasons for admission: I have assessed the risk for this patient, Ricardo Lu, and determined that she would benefit from observation care. Evaluation Laboratory results: Laboratory Tests 02/28/25 16:50 Urine Color Yellow Urine Appearance Clear Urine pH 6.5 Ur Specific [place] 1.017 Urine Protein Negative Urine Glucose (UA) Negative Urine Ketones Negative Ur Blood (Man) Negative Urine Nitrate Negative Urine Bilirubin Negative Urine Urobilinogen 2.0 H Leukocyte Esterase Rfl Negative Final Diagnosis (1) Irregular contractions: Code(s): O47.9 - False labor, unspecified Status: Acute
== END 2025-03-01 13:34 | disposition home or self-care (01) ==
LOC: ANHLDR 21:56 → ANHOBPP 22:27
PROVIDERS: Admitting Provider Obstetrics & Gynecology; Visit Provider Obstetrics & Gynecology
DX: O47.03 False labor before 37 completed weeks of gestation, third trimester (principal); Z3A.36 36 weeks gestation of pregnancy
CPT/HCPCS: 76819; 81001; 96372; A9270; G0378; G0379; J3105; J7120

== ENCOUNTER 2025-03-07 16:05 | Outpatient (RCR) | payer MEDICAID, SELFPAY ==
[2025-03-07 18:29] VITALS: BP 115/70; PULSE 83
== END 2025-06-05 23:59 | disposition home or self-care (01) ==
LOC: ANHOBOP 16:05
PROVIDERS: Visit Provider Obstetrics & Gynecology
DX: O36.8130 Decreased fetal movements, third trimester, not applicable or unspecified (principal); Z3A.37 37 weeks gestation of pregnancy
CPT/HCPCS: 59025

== ENCOUNTER 2025-03-23 12:54 | Outpatient (CLI) | payer MEDICAID, SELFPAY ==
--- OUTSIDE RECORDS SUMMARY | 2025-03-23 12:58 | XMS_ITS | Encounter Summary ---
Author Organization [facility] Address [address] [place] [address] Care Team Providers Care Flame Degreaser Name Role Phone Malik Garcia MD Primary Care Provider [phone] Encounter Details Date Type Department Care Team (Late st Contact Info) Description 01/27/2019 Abstract [facility]FL CONVERSION [address] [place] [address] , Generic MD Jonathan Social History Tobacco Use Types Packs/Day Years Used Date Smoking Tobacco: Never Assessed Comments Unknown Sex and Gender Information Value Date Recorded Sex Assigned at Female 10/11/2024 11:44 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
--- OUTSIDE RECORDS SUMMARY | 2025-03-23 12:58 | XMS_ITS | Encounter Summary ---
Author Organization [facility] Address [address] [facility] [place] [address] Phone Care Team Providers Care Highway Engineering Teacher Name Role Phone Herbert Schilling MD Primary Care Provider [phone] Sammy Garcia MD Primary Care Provider [phone] Herbert Schilling MD Unavailable [phone] Reason for Referral * PT/OT/ST (Routine) - Closed Specialty Diagnoses / Procedures Referred By Contsaleem t Referred To Contact Physical Therapy Diagnoses Spinal stenosis, cervical region Sammy Garcia MD [address] [place] [address] [place] [address] Phone: tel: [facility]: [facility] [address] [address] Phone: tel: fax: Referral ID Status Reason Start Date Expiration Date Visits Re quested Visits Authorized [id number] Closed 05/11/2024 50 50 Scheduling Instructions Encounter Details Date Type Department Care Team (Late st Contact Info) Description 05/11/2024 Transcribe Orders [facility] [address] [place] [address] Sammy Garcia MD [address] [place] [address] [place] [address] Spinal stenosis, cervical region (Primary Dx) Social [...] Primary documented in this encounter Care Teams Highway Engineering Teacher Relationship Specialty Start Date End Date Herbert Schilling MD [address] [facility] [place] [address] PCP - General Family Medicine 08/25/21 05/13/24 Sammy Garcia MD [address] [place] [address] [place] [address] PCP - General Family Medicine 05/14/24 Herbert Schilling MD [address] [place] [address] [place] [address] Family Medicine 05/14/24 documented as of this encounter
--- OUTSIDE RECORDS SUMMARY | 2025-03-23 12:58 | XMS_ITS | Clinical Summary ---
Author Organization [facility] Address [address] [facility] [place] [address] Care Team Providers Care Staffing Recruiter Name Role Phone Unavailable Primary Care Provider Unavailabl e Source Comments [facility],non-owned Affiliates and Associated Physician Practices is amultiple site organization consisting of ambulatory clinics and hospital sitesin [place], [place], [place] and [place]. This disclosure is being madepursuant to the Care Everywhere program and may not contain all information available regarding this patient. Last updated 18.[facility] Allergies Active Allergy Reactions Criticality Noted Date Comments Penicillins Unknown 12/07/2024 Encounters Date Type Department Care Team Description 12/21/2024 9:45 AM CDT - 12/21/2024 11:59 PM CDT Hospital Encounter [facility] Women[facility] Maternal & Care [address] [place] [id number] Head, Neyda Quintero MD Discharge Disposition: Home or Self Care from Last 3 Months Social History Tobacco Use Types Packs/Day Years Used Date Smoking Tobacco: Never Assessed Estimated Date of Delivery Comme nts Yes 03/27/2025 Based on Patient Reported Sex and Gender Information Value Date Recorded Sex Assigned at Not on file Legal Sex Female 1:20 PM PROTECTIVE OFFICER Gender Identity Not on file Sexual Orientation Not on file Plan of Treatment Health Maintenance Due Date Last Done Comments HIV SCREENING 12/05/2010 HEPATITIS C SCREENING 12/01/2013 DTAP/TDAP/TD VACCINES (1 - Tdap) 12/05/2014 HEPATITIS B VACCINE (1 of 3 - 19+ 3-dose series) 12/05/2014 PAP SMEAR 12/05/2016 HPV VACCINE (1 - 3-dose SCDM series) 12/05/2022 COVID-19 VACCINE ( season) 2024 DEPRESSION SCREENING 08/22/2024 OB-ONE HOUR GLUCOSE 12/19/2024 OB-TDAP CURRENT 12/26/2024 04/24/2016 OB-RHOGAM INJECTION 01/02/2025 OB-GROUP B STREP SCREEN 02/20/2025 INFLUENZA VACCINE (#1) 2025 , 06/16/2022, 04/24/2016, Additional history exists ZOSTER VACCINE [...] History ====== OB History 6. Para 2 [id number] 1. live . Details: delivery, Full term [...] 2 lb 0 oz EFW by Hadlock (OGS-GX-CH-FL) appropriate Growth Overview Exam date GA BPD (mm) HC (mm) AC (mm) FL (mm) HL (mm) EFW (g) 11/19/2024 21w 5d 48.6 13% 192.7 30% 175.2 66% 35.8 28% 34.9 58% 456 50% 12/21/2024 26w 2d 65 38% 240.5 20% 220.5 48% 47.5 24% 44 41% 908 36% Anatomy The following structures appear normal: Heart / Thorax 4-chamber view. RVOT view. LVOT view. 6-pulpkd-smrzumt view. Aortic arch view. Ductal arch view. [...] as is clinically indicated. Coding ====== Procedures [id number]: US Preg Uterus Follow Up [facility] [employer] PACS Anatomical Region Laterality Modality Other 12/21/2024 9:38 AM CDT us Provider Unknown [facility] ORDERABLES Edited Result - Final from Last 3 Months Insurance MEDICAID - [place] [facility] MEDICAID - OUT OF [facility]
--- OUTSIDE RECORDS SUMMARY | 2025-03-23 12:58 | XMS_ITS | Referral Summary ---
Author Organization [facility] at the [facility] Address [address] [place] [address] Care Team Providers Care Show Operations Supervisor Name Role Phone Herbert Schilling MD Primary Care Provider [phone] Herbert Schilling MD Unavailable [phone] No, Physician Unavailable Allergies Active Allergy Reactions [...] often do you attend chur ch or methodist services? Never 07/05/2022 Do you belong to any clubs o r organizations such as adventist groups, unions, fraternal or athletic groups, or [...] housing, medical care, and heating? Hard 07/05/2022 [facility] - Occupational Stress [...] a group home (including now)? 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 Gender Identity Female 01/12/2023 4:22 PM CDT [...] Plan of Treatment Not on file Insurance [facility] Advance Directives For more information, please contact: [phone] * Full Code (Latest Code Status on File) Date Activated Date Inactivated Comments 07/02/2022 11:37 PM 07/06/2022 3:49 PM * Full Code Date Activated Date Inactivated Comments 07/02/2022 1:35 PM 07/02/2022 11:37 PM Care Teams Show Operations Supervisor Relationship Specialty Start Date End Date Herbert Schilling MD PCP - General Family Medicine 07/01/22 Herbert Schilling MD Family Medicine 07/01/22 No, Physician 05/13/21
--- OUTSIDE RECORDS SUMMARY | 2025-03-23 12:58 | XMS_ITS | Clinical Summary ---
Author Organization [facility] at the [facility] Address [address] [place] [address] Care Team Providers Care Metal Bonder Name Role Phone Herbert Schilling MD Primary Care Provider [phone] Herbert Schilling MD Unavailable [phone] No, Physician Unavailable Allergies Active Allergy Reactions [...] often do you attend chur ch or oriental orthodox services? Never 07/05/2022 Do you belong to any clubs o r organizations such as jewish groups, unions, fraternal or athletic groups, or [...] housing, medical care, and heating? Hard 07/05/2022 [facility] - Occupational [...] place to sleep or slept in a nursing home (including now)? 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 Gender Identity Female 01/12/2023 4:22 PM CDT [...] IS) Devin lopez MD Complications:Cephalopelvic Disproportion Delivery Location:[facility] 2021 33w 3d 0h 02m 0h 02m 2.04 kg (4 lb 8 oz) F C-Sec tion Spinal Y Livin g 3 5 GREEN ,GIRL SANDOR S Sylvain zendejas, Emir maynard MD Complications:None Delivery Location:[facility] Main C ampus ([facility] L AND D PROCEDURE) Last Filed Vital [...] Screening 12/05/2013 Regular Well Visit/Exam 18-64 12/05/2013 HPV Vaccines (1 - 3-dose SCD M series) 12/05/2022 Depression Screening 07/26/2023 07/26/2022 Influenza Vaccine (#1) 2025 2, 04/24/2016, 06/11/2015 DTaP/Tdap/Td Vaccine (2 - Td or Tdap) 04/24/2026 04/24/2016 Pneumococcal vaccine <65 Aged Out No longer eligible based on patient's age to complete this topic Insurance Advance Directives For more information, please contact: [phone] * Full Code (Latest Code Status on File) Date Activated Date Inactivated Comments 07/02/2022 11:37 PM 07/06/2022 3:49 PM * Full Code Date Activated Date Inactivated Comments 07/02/2022 1:35 PM 07/02/2022 11:37 PM Care Teams Metal Bonder Relationship Specialty Start Date End Date Herbert Schilling MD PCP - General Family Medicine 07/01/22 eHrbert Schilling MD Family Medicine 07/01/22 No, Physician 05/13/21
--- OUTSIDE RECORDS SUMMARY | 2025-03-23 12:58 | XMS_ITS | Clinical Summary ---
Author Organization [facility] Address [address] [place] [address] Phone Care Team Providers Care Television Repairman Name Role Phone Sammy Garcia MD Primary Care Provider [phone] Herbert Schilling MD Unavailable [phone] Allergies Active Allergy Reactions Criticality Noted Date [...] measures to stabilize the patient. Care Teams Television Repairman Relationship Specialty Start Date End Date Sammy Garcia MD [address] [place] [address] [place] [address] PCP - General Family Medicine 05/14/24 Herbert Schilling MD [address] [place] [address] Family Medicine 05/14/24
--- OUTSIDE RECORDS SUMMARY | 2025-03-23 12:58 | XMS_ITS | Clinical Summary ---
Author Organization [facility] Address Critical access hospital[address] [place] [address] Care Team Providers Care Duralumin Metalworker Name Role Phone Malik Garcia MD Primary Care Provider [phone] Allergies Active Allergy Reactions Criticality Noted Date Comments Penicillins Anaphylaxis High 10/11/2024 As a child Medications vitamin w/ iron-folic acid ( PLUS) 29-1 MG Tab tablet Take 1 tablet by mouth daily. Active Encounters Date Type Department Care Team Description 03/08/2025 6:38 PM CDT - 03/08/2025 8:30 PM CDT Hospital Encounter [facility] [address] [place] [address] Demetrius Donahue MD Contractions Discharge Disposition: Home or Self Care (Routine Discharge) 02/28/2025 12:32 AM CDT - 02/28/2025 3:17 AM CDT Hospital Encounter [facility] [address] [place] [address] [address] Leena Harrison MD Contractions Discharge Disposition: Home or Self Care (Routine Discharge) 02/28/2025 Travel 02/08/2025 9:13 PM CDT - 02/09/2025 3:38 AM CDT Hospital Encounter [facility] [address] [place] [address] [address] Zainab Cano MD Low Back Pain Discharge Disposition: Home or Self Care (Routine Discharge) 02/08/2025 Travel 12/31/2024 10:00 AM CDT - 12/31/2024 2:38 PM CDT Hospital Encounter [facility] [address] [place] [address] Luis Higginbotham MD Vaginal Bleeding Discharge Disposition: Home or Self Care (Routine Discharge) 12/31/2024 Travel from Last 3 Months Social History Tobacco Use Types Packs/Day Years Used Date Smoking Tobacco: Never Smokeless Tobacco: Never Tobacco Cessation:Counseling Given: Not Answered Alcohol Use Standard Drinks/Week Comments Never 0 (1 standard drink = 0.6 oz pur e alcohol) Estimated Date of Delivery Comme nts Yes 03/27/2025 Sex and Gender Information Value Date Recorded Sex Assigned at Female 10/11/2024 11:44 AM CONDUIT BENDER Legal Sex Female 11:02 PM CONDUIT BENDER Gender Identity Not on file Sexual Orientation Not on file Last Filed Vital Signs Vital Sign Reading Time Taken Comments Blood Pressure 121/66 03/08/2025 6:43 PM CDT Pulse 89 03/08/2025 6:43 PM CDT Temperature 36.4 C (97.5 F) 03/08/2025 6:43 PM CDT Respiratory Rate 16 03/08/2025 6:44 PM CDT Oxygen Saturation 97% 03/08/2025 6:44 PM CDT Inhaled Oxygen Concentration - - Weight 70.3 kg (155 lb) 02/08/2025 10:06 PM CDT Height 154.9 cm (5' 1) 02/08/2025 10:06 PM CDT Body Mass Index 29.29 02/08/2025 10:06 PM CDT Plan of Treatment Health Maintenance Due Date Last Done Comments Annual Physical 12/05/1998 Hepatitis C 12/05/2013 HPV Vaccines (1 - 3-dose SCDM series) 12/05/2022 COVID-19 Vaccine ( - season) 2024 01/12/2021 DTaP, Tdap and Td Vaccines (4 - Td or Tdap) 04/24/2026 04/24/2016, 05/26/2000, 09/26/1997, Additional history exists Cervical Cancer Screening Pap Smear (Age 21 to 29) Every 3 Years 01/31/2028 01/30/2025 Cervical Cancer Screening 01/31/2028 Hepatitis B Vaccines Completed 06/22/1996, 03/23/1996, 1995 Meningococcal B Vaccine Aged Out No l onger eligible based on patient's age to complete this topic Meningococcal Vaccine Aged Out No elie tom eligible based on patient's age to complete this topic Pneumococcal Vaccine: Pediatrics (0 to 5 Years) and At-Risk Patients (6 to 49 Years) Aged Out No longer eligible based on patient's age to complete this topic RSV Immunization or 60+ Years (No Doses Required) Completed RSV Immunizations Under 20 Months Aged Out No longer eligible based on patient's age to complete this topic Procedures Procedure Name Priority Date/Time Associated Diagnosis Comments DRUG SCREEN RAPID Routine 03/08/2025 6:4 5 PM CDT Uterine contractions (HHS/HCC) HC URINALYSIS AUTO W/MICRO Routine 03/08/2025 6:45 PM CDT Uterine contractions (HHS/HCC) HC URINALYSIS AUTO W/MICRO STAT 02/28/2025 12:38 AM CDT Irregular contractions (HHS/HCC) HC URINALYSIS AUTO W/MICRO STAT 02/08/2025 9:18 PM CDT Back pain COMPREHENSIVE METABOLIC PANEL Routine 12/31/2024 12:51 PM CDT Uterine cramping CBC W/DIFF AUTOMATED Routine 12/31/2024 12:51 PM CDT Uterine cramping HC URINALYSIS AUTO W/MICRO Routine 12/31/2024 10:50 AM CDT Uterine cramping DRUG SCREEN RAPID Routine 12/31/2024 10: 50 AM CDT Uterine cramping from Last 3 Months Results * DRUG SCREEN RAPID (03/08/2025 6:45 PM CDT) Only the most recent of2 resultswithin the time period is included. CANNABINOIDS SCREEN (U) NEGATIVE NEGATIVE 03/08/2025 7:19 PM CDT [facility] PHENCYCLIDINE PCP (U) NEGATIVE NEGATIVE 03/08/2025 7:19 PM CDT [facility] COCAINE METABOLITES (U) NEGATIVE NEGATIVE 03/08/2025 7:19 PM CDT [facility] METHAMPHETAMINE SCREEN (U) NEGATIVE NEGATIVE 03/08/2025 7:19 PM CDT [facility] OPIATE SCREEN (U) NEGATIVE NEGATIVE 025 7:19 PM CDT [facility] AMPHETAMINE SCREEN (U) NEGATIVE NEGATIVE 03/08/2025 7:19 PM CDT [facility] BENZODIAZEPINES SCREEN (U) NEGATIVE NEGATIVE 03/08/2025 7:19 PM CDT [facility] TRICYCLIC ANTIDEPRESSANT SCREEN (U) NEGATIVE NEGATIVE 03/08/2025 7:19 PM CDT [facility] METHADONE (U) NEGATIVE NEGATIVE 03/08/2025 7:19 PM CDT [facility] BARBITURATES SCREEN (U) NEGATIVE NEGATIVE 03/08/2025 7:19 PM CDT [facility] OXYCODONE SCREEN (U) NEGATIVE NEGATIVE 03/08/2025 7:19 PM CDT [facility] URINE TOX COMMENT THIS TEST METHODOLOGY IS DESIGNED AND OFFERED A RAPID TURNAROUND, QUALITATIVE SCREENING PROCEDURE TO AID IN THE IMMEDIATE MEDICAL ASSESSMENT OF PATIENTS SUSPECTED OF SUBSTANCE ABUSE. 03/08/2025 6:50 PM CDT [facility] Comment: CLINICAL CONSIDERATION AND PROFESSIONAL JUDGMENT MUST BE APPLIED TO ANY DRUG OF ABUSE TEST RESULT, BOTH POSITIVE AND NEGATIVE. CONFIRMATORY QUANTITATIVE RESULTS ARE AVAILABLE THROUGH OUR [facility]. URINE SPECIMEN / Unknown 03/08/2025 6:45 PM CDT us Demetrius Donahue MD URINE ORDERABLES Final Result [facility] [address] [place] [address], * URINALYSIS (03/08/2025 6:45 PM CDT) Only the most recent of4 resultswithin the time period is included. COLOR (U) YELLOW 03/08/2025 7:09 PM CDT [facility] TRANSPARENCY CLEAR 03/08/2025 7:09 PM CDT [facility] SPECIFIC GRAVITY (U) 1.015 1.000 - 1.025 03/08/2025 7:09 PM CDT [facility] U PH 7.0 5.0 - 8.0 03/08/2025 7:09 PM CDT [facility] LEUKOCYTES (U) NEGATIVE NEGATIVE 03/08/2025 7:09 PM CDT [facility] NITRITES NEGATIVE NEGATIVE 03/08/2025 7:09 PM CDT [facility] PROTEIN RANDOM (U) NEGATIVE NEGATIVE 03/08/2025 7:09 PM CDT [facility] GLUCOSE (U) NEGATIVE NEGATIVE 03/08/2025 7:09 PM CDT [facility] KETONES MG/DL (U) NEGATIVE NEGATIVE 03/08/2025 7:09 PM CDT [facility] UROBILINOGEN 0.2 <1.0 EU/DL 03/08/2025 7:09 PM CDT [facility] BILIRUBIN (U) NEGATIVE NEGATIVE 03/08/2025 7:09 PM CDT [facility] BLOOD (U) NEGATIVE NEGATIVE 03/08/2025 7:09 PM CDT [facility] WBC/HPF 0-5 0 - 5 /HPF 03/08/2025 7:09 PM CDT [facility] RBC/HPF 0-5 0 - 5 /HPF 03/08/2025 7:09 PM CDT [facility] EPI/LPF MODERATE /LPF 03/08/2025 7:09 PM CDT [facility] URINE SPECIMEN OBTAINED BY CLEAN CATCH PROCEDURE / Unknown 03/08/2025 6:45 PM CDT us Demetrius Donahue MD URINE ORDERABLES Final Result [facility] [address] [place] [address], * (ABNORMAL) COMPREHENSIVE METABOLIC PANEL (12/31/2024 12:51 PM CDT) SODIUM S/P/B 136 136 - 145 MMOL/L 12/31/2024 1:17 PM CDT [facility] POTASSIUM S/P/B 3.6 3.5 - 5.1 MMOL/L 12/31/2024 1:17 PM CDT [facility] CHLORIDE S/P/B 102 98 - 107 MMOL/L 12/31/2024 1:17 PM CDT [facility] CO2 26.9 21.0 - 32.0 MMOL/L 12/31/2024 1:17 PM CDT [facility] GLUCOSE 70 70 - 99 MG/DL 12/31/2024 1:17 PM T [facility] Comment: FASTING GLUCOSE 100 TO 125 MG/DL IS CONSISTENT WITH IMPAIRED FASTING GLUCOSE. FASTING GLUCOSE >125 MG/DL IS CONSISTENT WITH DIABETES. RANDOM GLUCOSE >200 MG/DL WITH HYPERGLYCEMIC SYMPTOMS IS CONSISTENT WITH DIABETES. PER ADA GUIDELINES BUN 7 6 - 24 MG/DL 12/31/2024 1:17 PM CDT [facility] CREATININE S/P/B 0.56 0.55 - 1.02 MG/DL 12/31/2024 1:17 PM CDT [facility] CALCIUM S/P/B 9.1 8.4 - 10.5 MG/DL 12/31/2024 1:17 PM T [facility] BILIRUBIN TOTAL S/P/B 0.4 0.2 - 1.0 MG/DL 12/31/2024 1:17 PM T [facility] Comment: THIS ASSAY IS NOT RECOMMENDED FOR PATIENTS UNDERGOING TREATMENT WITH ELTROMBOPAG DUE TO THE POTENTIAL FOR FALSELY ELEVATED RESULTS. ALKALINE PHOSPHATASE S/P/B 93 37 - 98 U/L 12/31/2024 1:17 PM CDT [facility] AST 10(L) 15 - 37 U/L 12/31/2024 1:17 PM CDT [facility] ALT 14 14 - 59 U/L 12/31/2024 1:17 PM CDT [facility] TOTAL PROTEIN S/P/B 6.7 6.4 - 8.2 G/DL 12/31/2024 1:17 PM CDT [facility] ALBUMIN S/P/B 2.8(L) 3.4 - 5.0 G/DL 12/31/2024 1:17 PM CDT [facility] ANION GAP 7.1 5.0 - 15.0 MMOL/L 12/31/2024 1:17 PM CDT [facility] OSMOLALITY (CALC) 278 MOSM/KG 025 1:17 PM CDT [facility] Comment:REFERENCE RANGE NOT ESTABLISHED GFR ESTIMATE >90 >89 ML/MIN/1. 73 M2 12/31/2024 1:17 PM CDT [facility] GFR NOTES GFR REFERENCE S: 12/31/2024 1:17 PM CDT [facility] Comment: THE ESTIMATED GFR IS CALCULATED USING THE 2020 CKD-EPI EQUATION. THE FOLLOWING CATEGORIES FOR GRADING RENAL FUNCTION ARE RECOMMENDED BY THE INTERNATIONAL SOCIETY OF NEPHROLOGY (KDIGO 2012 CLINICAL PRACTICE GUIDELINE). G1,NORMAL OR HIGH: >89 ml/min/1.73 m2 G2,MILDLY DECREASED: 60-89 ml/min/1.73 m2 G3A,MILDLY TO MODERATELY DECREASED: 45-59 ml/min/1.73 m2 G3B,MODERATELY TO SEVERELY DECREASED: 30-44 ml/min/1.73 m2 G4,SEVERELY DECREASED: 15-29 ml/min/1.73 m2 G5,KIDNEY FAILURE: <15 ml/min/1.73 m2 12/31/2024 12:5 1 PM CDT Luis Higginbothma MD LABORATORY Final Result [facility] [address] [place] [address], * (ABNORMAL) CBC W/DIFF AUTOMATED (12/31/2024 12:51 PM CDT) WBC 9.20 4.00 - 10.80 x10'3/uL 12/31/2024 12:56 PM CDT [facility] RBC 3.84(L) 4.10 - 5.40 x10'6/uL 12/31/2024 12:56 PM CDT [facility] HGB 10.7(L) 12.0 - 16.0 G/DL 12/31/2024 12:56 PM CDT [facility] HCT 33.0(L) 36.0 - 47.0 % 12/31/2024 12:56 PM CDT [facility] MCV 85.9 78.0 - 100.0 FL 12/31/2024 12:56 PM CDT [facility] MCH 27.9 27.0 - 31.0 PG 12/31/2024 12:56 PM CDT [facility] MCHC 32.4(L) 33.0 - 36.0 G/DL 12/31/2024 12:56 PM CDT [facility] RDW 13.3 11.5 - 14.5 % 12/31/2024 12:56 PM CDT [facility] PLT 182 150 - 350 x10'3/uL 12/31/2024 12:56 PM CDT [facility] MPV 9.3 7.4 - 10.4 FL 12/31/2024 12:56 PM CDT [facility] CBC COMMENT NORMAL REFERENCE RANGE NOT ESTABLISHED FOR THE PROPORTIONAL LEUKOCYTE DIFFERENTIAL. 12/31/2024 12:56 PM CDT [facility] NEUTROPHILS % 74.4 % 12/31/2024 12:56 PM CDT [facility] LYMPHOCYTES % 20.5 % 12/31/2024 12:56 PM CDT [facility] MONOCYTES % 4.3 % 12/31/2024 12:56 PM CDT [facility] EOSINOPHILS % 0.2 % 12/31/2024 12:56 PM CDT [facility] BASOPHILS % 0.2 % 12/31/2024 12:56 PM CDT [facility] IMMATURE GRANS % 0.4 % 01/01/20 12:56 PM CDT [facility] NRBC % 0.0 % 12/31/2024 12:56 PM CDT [facility] ABS. NEUTROPHILS 6.83 1.60 - 8.30 x10'3/uL 12/31/2024 12:56 PM CDT [facility] ABS. LYMPHOCYTES 1.89 0.80 - 4.70 x10'3/uL 12/31/2024 12:56 PM CDT [facility] ABS. MONOCYTES 0.40 0.00 - 1.50 x10'3/uL 12/31/2024 12:56 PM CDT [facility] ABS. EOSINOPHILS 0.02 0.00 - 0.40 x10'3/uL 12/31/2024 12:56 PM CDT [facility] ABS. BASOPHILS 0.02 0.00 - 0.20 x10'3/uL 12/31/2024 12:56 PM CDT [facility] ABS. IMMATURE GRANULOCYTES 0.04(H) 0.00 - 0.03 x10'3/uL 12/31/2024 12:56 PM CDT [facility] ABS. NUCLEATED RBC'S 0.00 0.00 - 0.01 x10'3/uL 12/31/2024 12:56 PM CDT [facility] 12/31/2024 12:5 1 PM CDT Luis Higginbotham MD LABORATORY Final Result [facility] [address] [place] [id number], from Last 3 Months Insurance MED[facility]ID [facility] [address] Care Teams Duralumin Metalworker Relationship Specialty Start Date End Date Malik Garcia MD [address] [place] [address] [place] [phone] PCP - General FAMILY PRACTICE 10/11/24
[2025-03-23 13:08] LABS: Hematocrit 32.2 % (37.0-47.0); Hemoglobin 10.1 g/dL (12.0-15.0); Mean Corpuscular HGB Conc 31.4 g/dl (32-36); Mean Corpuscular Hemoglobin 26.2 pg (26-34); Mean Corpuscular Volume 83.6 fl (80-100); Platelet Count Result 151 k/mm3 (150-375); Red Blood Count 3.85 M/mm3 (4.2-5.4); White Blood Count 10.5 K/mm3 (4.5-10.0)
[2025-03-23 13:57] LABS: Syphilis IgG/IgM Antibody Non-Reactive (Nonreactive)
== END 2025-03-23 12:55 | disposition home or self-care (01) ==
LOC: ANHLAB 12:55
PROVIDERS: PCP Family Medicine; Visit Provider Obstetrics & Gynecology
DX: Z01.818 Encounter for other preprocedural examination (principal)
CPT/HCPCS: 36415; 85027; 86593; 86850; 86900; 86901; 86923

== ENCOUNTER 2025-03-25 04:54 | Inpatient (IN) | payer MEDICAID, SELFPAY ==
[2025-03-25] VITALS (38 sets, daily range): BP systolic 96–137; BP diastolic 35–96; PULSE 55–102; RESP 16–18; TEMP 36.6–37.1; O2SAT 99–100; BMI 31.2
--- OUTSIDE RECORDS SUMMARY | 2025-03-25 04:58 | XMS_ITS | Clinical Summary ---
Author Organization [facility] Address [address] [place] [address] Phone Care Team Providers Care Aeronautical Design Engineer Name Role Phone Sammy Garcia MD Primary Care Provider [phone] Herbert Schilling MD Unavailable [phone] Allergies Active Allergy Reactions Criticality Noted Date [...] Comments Hepatitis C Virus (HCV) Screening 1995 Pap Smear 12/05/2016 Human Papillomavirus (HPV) Immunization (1 - 3-dose SCDM series) 12/05/2022 SARS-COV-2 Immunization ( - season) 2024 01/12/2021 Influenza Immunization (#1) 04/22/202506/23, [...] measures to stabilize the patient. Care Teams Aeronautical Design Engineer Relationship Specialty Start Date End Date Sammy Garcia MD [address] [place] [address] [place] [address] PCP - General Family Medicine 05/14/24 Herbert Schilling MD [address] [place] [address] [place] [address] Family Medicine 05/14/24
--- OUTSIDE RECORDS SUMMARY | 2025-03-25 04:58 | XMS_ITS | Clinical Summary ---
Author Organization [facility] [employer] Address [address] [place] [address] Care Team Providers Care Saddle Tree Stitcher Name Role Phone Unavailable Primary Care Provider Unavailabl e Source Comments [facility],non-owned Affiliates and Associated Physician Practices is amultiple site organization consisting of ambulatory clinics and hospital sitesin [place], [place] and [place]. This disclosure is being madepursuant to the Care Everywhere program and may not contain all information available regarding this patient. Last updated 18.[facility] [employer] Allergies Active Allergy Reactions Criticality Noted Date Comments Penicillins Unknown 12/07/2024 Social History Tobacco Use Types Packs/Day Years Used Date Smoking Tobacco: Never Assessed Estimated Date of Delivery Comme nts Yes 03/27/2025 Based on Patient Reported Sex and Gender Information Value Date Recorded Sex Assigned at Not on file Legal Sex Female 1:20 PM THERAPIST Gender Identity Not on file Sexual Orientation Not on file Plan of Treatment Health Maintenance Due Date Last Done Comments HIV SCREENING 12/05/2010 HEPATITIS C SCREENING 12/01/2013 DTAP/TDAP/TD VACCINES (1 - Tdap) 12/05/2014 HEPATITIS B VACCINE (1 of 3 - 19+ 3-dose series) 12/05/2014 PAP SMEAR 12/05/2016 HPV VACCINE (1 - 3-dose SCDM series) 12/05/2022 COVID-19 VACCINE ( - season) 2024 DEPRESSION SCREENING 08/22/2024 OB-ONE HOUR [...] over 60 yrs (No Doses Required) Completed Insurance MEDICAID - [place] [facility] MEDICAID [facility]
--- OUTSIDE RECORDS SUMMARY | 2025-03-25 04:58 | XMS_ITS | Referral Summary ---
Author Organization [facility] Address [address] [place] [id number] Care Team Providers Care Online Editor Name Role Phone Herbert Schilling MD Primary Care Provider [phone] Herbert Schilling MD Unavailable [phone] No, Physician Unavailable Allergies Active Allergy Reactions [...] often do you attend chur ch or jainism services? Never 07/05/2022 Do you belong to any clubs o r organizations such as pentecostal groups, unions, fraternal or athletic groups, or [...] in a prison (including now)? No 07/05/2022 [place] Depression Scale Answer Date Recorded [place] Depression Scale Total 21 07/26/2022 The thought [...] on file Legal Sex Female 9:44 AM HEALTHCARE SOCIAL WORKER Gender Identity Female 01/12/2023 4:22 PM CDT [...] Plan of Treatment Not on file Insurance [facility] Advance Directives For more information, please contact: [phone] * Full Code (Latest Code Status on File) Date Activated Date Inactivated Comments 07/02/2022 11:37 PM 07/06/2022 3:49 PM * Full Code Date Activated Date Inactivated Comments 07/02/2022 1:35 PM 07/02/2022 11:37 PM Care Teams Online Editor Relationship Specialty Start Date End Date Herbert Schilling MD PCP - General Family Medicine 07/01/22 Herbert Schilling MD Family Medicine 07/01/22 No, Physician 05/13/21
--- OUTSIDE RECORDS SUMMARY | 2025-03-25 04:58 | XMS_ITS | Encounter Summary ---
Author Organization [facility] Address [address] [place] [address] Care Team Providers Care Industrial Waste Treatment Technician Name Role Phone Malik Garcia MD Primary Care Provider [phone] Encounter Details Date Type Department Care Team (Late st Contact Info) Description 01/27/2019 Abstract [facility] [address] [place] [address] , Generic MD Jonathan Social History Tobacco Use Types Packs/Day Years Used Date Smoking Tobacco: Never Assessed Comments Unknown Sex and Gender Information Value Date Recorded Sex Assigned at Female 10/11/2024 11:44 AM PERSONAL SHOPPER Legal Sex Female 11:02 PM PERSONAL SHOPPER Gender Identity Not on file Sexual Orientation Not on file documented as of this encounter Plan of Treatment Not on file documented as of this encounter Visit Diagnoses Not on filedocumented in this encounter Care Teams Industrial Waste Treatment Technician Relationship Specialty Start Date End Date Malik Garcia MD [address] [facility] [address] [phone] PCP - General FAMILY PRACTICE 10/11/24 documented as of this encounter
--- OUTSIDE RECORDS SUMMARY | 2025-03-25 04:58 | XMS_ITS | Clinical Summary ---
Author Organization [facility] [place] Address [facility] [place] [address] Care Team Providers Care Train Operations Supervisor Name Role Phone Malik Garcia MD Primary Care Provider [phone] Allergies Active Allergy Reactions Criticality Noted Date Comments Penicillins Anaphylaxis High 10/11/2024 As a child Medications vitamin w/ iron-folic acid ( PLUS) 29-1 MG Tab tablet Take 1 tablet by mouth daily. Active Encounters Date Type Department Care Team Description 03/08/2025 6:38 PM CDT - 03/08/2025 8:30 PM CDT Hospital Encounter [facility] [address] [place] [address] Demetrius Donahue MD Contractions Discharge Disposition: Home or Self Care (Routine Discharge) 02/28/2025 12:32 AM CDT - 02/28/2025 3:17 AM CDT Hospital Encounter [facility] [address] [place] [address] Leena Harrison MD Contractions Discharge Disposition: Home or Self Care (Routine Discharge) 02/28/2025 Travel 02/08/2025 9:13 PM CDT - 02/09/2025 3:38 AM CDT Hospital Encounter [facility] [address] [place] [address] [address] Zainab Cano MD Low Back Pain Discharge Disposition: Home or Self Care (Routine Discharge) 02/08/2025 Travel 12/31/2024 10:00 AM CDT - 12/31/2024 2:38 PM CDT Hospital Encounter [facility] [address] [place] [address] Luis Higginbotham MD Vaginal Bleeding Discharge Disposition: [...] Sex Assigned at Female 10/11/2024 11:44 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 Legal Sex Female 11:02 PM GROOVER OPERATOR Gender Identity Not on file Sexual Orientation [...] (U) NEGATIVE NEGATIVE 03/08/2025 7:19 PM CDT [facility] PHENCYCLIDINE PCP (U) NEGATIVE NEGATIVE 03/08/2025 7:19 PM CDT [facility] COCAINE METABOLITES (U) NEGATIVE NEGATIVE 03/08/2025 7:19 PM CDT [facility] METHAMPHETAMINE SCREEN (U) NEGATIVE NEGATIVE 03/08/2025 7:19 PM CDT [facility] OPIATE SCREEN (U) NEGATIVE NEGATIVE 025 7:19 PM CDT [facility] AMPHETAMINE SCREEN (U) NEGATIVE NEGATIVE 03/08/2025 7:19 PM CDT [facility] BENZODIAZEPINES SCREEN (U) NEGATIVE NEGATIVE 03/08/2025 7:19 PM CDT [facility] TRICYCLIC ANTIDEPRESSANT SCREEN (U) NEGATIVE NEGATIVE 03/08/2025 7:19 PM CDT [facility] METHADONE (U) NEGATIVE NEGATIVE 03/08/2025 7:19 PM CDT [facility] BARBITURATES SCREEN (U) NEGATIVE NEGATIVE 03/08/2025 7:19 PM CDT [facility] OXYCODONE SCREEN (U) NEGATIVE NEGATIVE 03/08/2025 7:19 PM CDT [facility] URINE TOX COMMENT THIS TEST METHODOLOGY IS DESIGNED AND OFFERED A RAPID TURNAROUND, QUALITATIVE SCREENING PROCEDURE TO AID IN THE IMMEDIATE MEDICAL ASSESSMENT OF PATIENTS SUSPECTED OF SUBSTANCE ABUSE. 03/08/2025 6:50 PM CDT [facility] Comment: CLINICAL CONSIDERATION AND PROFESSIONAL JUDGMENT MUST BE APPLIED TO ANY DRUG OF ABUSE TEST RESULT, BOTH POSITIVE AND NEGATIVE. CONFIRMATORY QUANTITATIVE RESULTS ARE AVAILABLE THROUGH OUR REFERENCE LABORATORY. URINE SPECIMEN / Unknown 03/08/2025 6:45 PM CDT us Demetrius Donahue MD URINE ORDERABLES Final Result [facility] [address] [email or web address] [address], * URINALYSIS (03/08/2025 6:45 PM CDT) Only the most recent of4 resultswithin the time period is included. COLOR (U) YELLOW 03/08/2025 7:09 PM CDT [facility] TRANSPARENCY CLEAR 03/08/2025 7:09 PM CDT [facility] SPECIFIC GRAVITY (U) 1.015 1.000 - 1.025 03/08/2025 7:09 PM CDT [facility] U PH 7.0 5.0 - 8.0 03/08/2025 7:09 PM CDT [facility] LEUKOCYTES (U) NEGATIVE NEGATIVE 03/08/2025 7:09 PM CDT [facility] NITRITES NEGATIVE NEGATIVE 03/08/2025 7:09 PM CDT [facility] PROTEIN RANDOM (U) NEGATIVE NEGATIVE 03/08/2025 7:09 PM CDT [facility] GLUCOSE (U) NEGATIVE NEGATIVE 03/08/2025 7:09 PM CDT [facility] KETONES MG/DL (U) NEGATIVE NEGATIVE 03/08/2025 7:09 PM CDT [facility] UROBILINOGEN 0.2 <1.0 EU/DL 03/08/2025 7:09 PM CDT [facility] BILIRUBIN (U) NEGATIVE NEGATIVE 03/08/2025 7:09 PM CDT [facility] BLOOD (U) NEGATIVE NEGATIVE 03/08/2025 7:09 PM CDT [facility] WBC/HPF 0-5 0 - 5 /HPF 03/08/2025 7:09 PM CDT [facility] RBC/HPF 0-5 0 - 5 /HPF 03/08/2025 7:09 PM CDT [facility] EPI/LPF MODERATE /LPF 03/08/2025 7:09 PM CDT [facility] URINE SPECIMEN OBTAINED BY CLEAN CATCH PROCEDURE / Unknown 03/08/2025 6:45 PM CDT us Demetrius Donahue MD URINE ORDERABLES Final Result [facility] [address] [email or web address] [address], * (ABNORMAL) COMPREHENSIVE METABOLIC PANEL (12/31/2024 12:51 PM CDT) SODIUM S/P/B 136 136 - 145 MMOL/L 12/31/2024 1:17 PM CDT [facility] POTASSIUM S/P/B 3.6 3.5 - 5.1 MMOL/L 12/31/2024 1:17 PM CDT [facility] CHLORIDE S/P/B 102 98 - 107 MMOL/L 12/31/2024 1:17 PM CDT [facility] CO2 26.9 21.0 - 32.0 MMOL/L 12/31/2024 1:17 PM CDT [facility] GLUCOSE 70 70 - 99 MG/DL 12/31/2024 1:17 PM T [facility] Comment: FASTING GLUCOSE 100 TO 125 MG/DL IS CONSISTENT WITH IMPAIRED FASTING GLUCOSE. FASTING GLUCOSE >125 MG/DL IS CONSISTENT WITH DIABETES. RANDOM GLUCOSE >200 MG/DL WITH HYPERGLYCEMIC SYMPTOMS IS CONSISTENT WITH DIABETES. PER ADA GUIDELINES BUN 7 6 - 24 MG/DL 12/31/2024 1:17 PM CDT [facility] CREATININE S/P/B 0.56 0.55 - 1.02 MG/DL 12/31/2024 1:17 PM CDT [facility] CALCIUM S/P/B 9.1 8.4 - 10.5 MG/DL 12/31/2024 1:17 PM T [facility] BILIRUBIN TOTAL S/P/B 0.4 0.2 - 1.0 MG/DL 12/31/2024 1:17 PM T [facility] Comment: THIS ASSAY IS NOT RECOMMENDED FOR PATIENTS UNDERGOING TREATMENT WITH ELTROMBOPAG DUE TO THE POTENTIAL FOR FALSELY ELEVATED RESULTS. ALKALINE PHOSPHATASE S/P/B 93 37 - 98 U/L 12/31/2024 1:17 PM CDT [facility] AST 10(L) 15 - 37 U/L 12/31/2024 1:17 PM CDT [facility] ALT 14 14 - 59 U/L 12/31/2024 1:17 PM CDT [facility] TOTAL PROTEIN S/P/B 6.7 6.4 - 8.2 G/DL 12/31/2024 1:17 PM CDT [facility] ALBUMIN S/P/B 2.8(L) 3.4 - 5.0 G/DL 12/31/2024 1:17 PM CDT [facility] ANION GAP 7.1 5.0 - 15.0 MMOL/L 12/31/2024 1:17 PM CDT [facility] OSMOLALITY (CALC) 278 MOSM/KG 025 1:17 PM CDT [facility] Comment:REFERENCE RANGE NOT ESTABLISHED GFR ESTIMATE >90 >89 ML/MIN/1. 73 M2 12/31/2024 1:17 PM CDT [facility] GFR NOTES GFR REFERENCE S: 12/31/2024 1:17 PM CDT [facility] Comment: THE ESTIMATED GFR IS [...] m2 12/31/2024 12:5 1 PM CDT Luis Higginbotham MD LABORATORY Final Result [facility] [address] [place] [address], * (ABNORMAL) CBC W/DIFF AUTOMATED (12/31/2024 12:51 PM CDT) WBC 9.20 4.00 - 10.80 x10'3/uL 12/31/2024 12:56 PM CDT [facility] RBC 3.84(L) 4.10 - 5.40 x10'6/uL 12/31/2024 12:56 PM CDT [facility] HGB 10.7(L) 12.0 - 16.0 G/DL 12/31/2024 12:56 PM CDT [facility] HCT 33.0(L) 36.0 - 47.0 % 12/31/2024 12:56 PM CDT [facility] MCV 85.9 78.0 - 100.0 FL 12/31/2024 12:56 PM CDT [facility] MCH 27.9 27.0 - 31.0 PG 12/31/2024 12:56 PM CDT [facility] MCHC 32.4(L) 33.0 - 36.0 G/DL 12/31/2024 12:56 PM CDT [facility] RDW 13.3 11.5 - 14.5 % 12/31/2024 12:56 PM CDT [facility] PLT 182 150 - 350 x10'3/uL 12/31/2024 12:56 PM CDT [facility] MPV 9.3 7.4 - 10.4 FL 12/31/2024 12:56 PM CDT [facility] CBC COMMENT NORMAL REFERENCE RANGE NOT ESTABLISHED FOR THE PROPORTIONAL LEUKOCYTE DIFFERENTIAL. 12/31/2024 12:56 PM CDT [facility] NEUTROPHILS % 74.4 % 12/31/2024 12:56 PM CDT [facility] LYMPHOCYTES % 20.5 % 12/31/2024 12:56 PM CDT [facility] MONOCYTES % 4.3 % 12/31/2024 12:56 PM CDT [facility] EOSINOPHILS % 0.2 % 12/31/2024 12:56 PM CDT [facility] BASOPHILS % 0.2 % 12/31/2024 12:56 PM CDT [facility] IMMATURE GRANS % 0.4 % 01/01/20 12:56 PM CDT [facility] NRBC % 0.0 % 12/31/2024 12:56 PM CDT [facility] ABS. NEUTROPHILS 6.83 1.60 - 8.30 x10'3/uL 12/31/2024 12:56 PM CDT [facility] ABS. LYMPHOCYTES 1.89 0.80 - 4.70 x10'3/uL 12/31/2024 12:56 PM CDT [facility] ABS. MONOCYTES 0.40 0.00 - 1.50 x10'3/uL 12/31/2024 12:56 PM CDT [facility] ABS. EOSINOPHILS 0.02 0.00 - 0.40 x10'3/uL 12/31/2024 12:56 PM CDT [facility] ABS. BASOPHILS 0.02 0.00 - 0.20 x10'3/uL 12/31/2024 12:56 PM CDT [facility] ABS. IMMATURE GRANULOCYTES 0.04(H) 0.00 - 0.03 x10'3/uL 12/31/2024 12:56 PM CDT [facility] ABS. NUCLEATED RBC'S 0.00 0.00 - 0.01 x10'3/uL 12/31/2024 12:56 PM CDT [facility] 12/31/2024 12:5 1 PM CDT Luis Higginbotham MD LABORATORY Final Result [facility] [address] [place] [id number], from Last 3 Months Insurance MEDICAID Care Teams Train Operations Supervisor Relationship Specialty Start Date End Date Malik Garcia MD [address] [facility] [address] [place] [phone] PCP - General FAMILY PRACTICE 10/11/24
--- OUTSIDE RECORDS SUMMARY | 2025-03-25 04:58 | XMS_ITS | Encounter Summary ---
Author Organization [facility] Address [address] [place] [place] [address] Phone Care Team Providers Care System Dispatcher Name Role Phone Herbert Schilling MD Primary Care Provider [phone] Sammy Garcia MD Primary Care Provider [phone] Herbert Schilling MD Unavailable [phone] Reason for Referral * PT/OT/ST (Routine) - Closed Specialty Diagnoses / Procedures Referred By Contsaleem t Referred To Contact Physical Therapy Diagnoses Spinal stenosis, cervical region Sammy Garcia MD [address] [place] [address] [place] [address] Phone: tel: fax: [facility] [address] [address] Phone: tel: fax: Referral ID Status Reason Start Date Expiration Date Visits Re quested Visits Authorized [id number] Closed 05/11/2024 50 50 Scheduling Instructions Encounter Details Date Type Department Care Team (Late st Contact Info) Description 05/11/2024 Transcribe Orders [facility] [address] [place] [address] Sammy Garcia MD [address] [place] [address] [place] [address] Spinal stenosis, cervical region (Primary Dx) Social [...] Primary documented in this encounter Care Teams System Dispatcher Relationship Specialty Start Date End Date Herbert Schilling MD [address] [facility] [address] PCP - General Family Medicine 08/25/21 05/13/24 Samym Garcia MD [address] [place] [address] [place] [address] PCP - General Family Medicine 05/14/24 Herbert Schilling MD [address] [place] [address] [place] [address] Family Medicine 05/14/24 documented as of this encounter
--- OUTSIDE RECORDS SUMMARY | 2025-03-25 04:58 | XMS_ITS | Clinical Summary ---
Author Organization [facility] Address [address] [place] [address] Care Team Providers Care Furnace Tender Name Role Phone Herbert Schilling MD Primary Care Provider [phone] Herbert Schilling MD Unavailable [phone] No, Physician Unavailable Allergies Active Allergy Reactions [...] often do you attend chur ch or mandaeism services? Never 07/05/2022 Do you belong to any clubs o r organizations such as mormon groups, unions, fraternal or athletic groups, or [...] housing, medical care, and heating? Hard 07/05/2022 [facility] - [...] place to sleep or slept in a snf (including now)? 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 Gender Identity Female 01/12/2023 4:22 PM CDT [...] Devin lopez MD Complications:Cephalopelvic Disproportion Delivery Location:[facility] 2021 33w 3d 0h 02m 0h 02m 2.04 kg (4 lb 8 oz) F C-Sec tion Spinal Y Livin g 3 5 GREEN ,GIRL SANDOR S Sylvain zendejas, Emir maynard MD Complications:None Delivery Location:[facility] Main C ampus ([facility] L AND D PROCEDURE) Last Filed Vital [...] Advance Directives For more information, please contact: [phone] * Full Code (Latest Code Status on File) Date Activated Date Inactivated Comments 07/02/2022 11:37 PM 07/06/2022 3:49 PM * Full Code Date Activated Date Inactivated Comments 07/02/2022 1:35 PM 07/02/2022 11:37 PM Care Teams Furnace Tender Relationship Specialty Start Date End Date Herbert Schilling MD PCP - General Family Medicine 07/01/22 Herbert Schilling MD Family Medicine 07/01/22 No, Physician 05/13/21
[2025-03-25] MEDS: ACETAMINOPHEN 500 MG TABLET 1000 MG PO ×3 (05:33→20:38)
[2025-03-25] MEDS: LACTATED RINGERS 1,000 ML 125 ML IV CONT ×2 (05:34→17:28)
[2025-03-25 05:36] LABS: Hematocrit 33.7 % (37.0-47.0); Hemoglobin 10.6 g/dL (12.0-15.0); Immature Granulocyte Percent A 0.5 % (0-0.5); Lymphocytes Absolute Auto 2.73 K/mm3 (0.9-3.2); Mean Corpuscular HGB Conc 31.5 g/dl (32-36); Mean Corpuscular Hemoglobin 26.3 pg (26-34); Mean Corpuscular Volume 83.6 fl (80-100); Nucleated Red Blood Cells Absolute Auto 0.000 K/mm3 (0.0-0.012); Nucleated Red Blood Cells Perc 0.0 % (0.0-0.2); Platelet Count Result 155 k/mm3 (150-375); Red Blood Count 4.03 M/mm3 (4.2-5.4); White Blood Count 10.0 K/mm3 (4.5-10.0)
[2025-03-25 05:58] LABS: Alanine Aminotransferase 12 U/L (6-35); Albumin Level 3.4 g/dL (3.5-5.1); Alkaline Phosphatase 174 U/L (38-126); Anion Gap 0 mmol/L (4-12); Aspartate Amino Transferase 23 U/L (14-36); Bilirubin,Total 0.5 mg/dL (0.2-1.3); Blood Urea Nitrogen 11 mg/dL (7-17); Calcium 9.0 mg/dL (8.4-10.2); Carbon Dioxide 19 mmol/L (22-30); Chloride 106 mmol/L (98-107); Estimated CRCL calculation 112 ml/min; Estimated Glomerular Filt Rate > 60; Glucose 87 mg/dL (65-110); Potassium 4.1 mmol/L (3.4-5.0); Sodium 125 mmol/L (137-145); Total Protein 6.5 g/dL (6.3-8.2)
[2025-03-25 06:28] LABS: Syphilis IgG/IgM Antibody Non-Reactive (Nonreactive)
[2025-03-25 06:30] LABS: Hepatitis B Surface Antigen Negative (Negative)
[2025-03-25 06:39] LABS: HIV 1/2 Ab P24 Ag Result Negative (Negative)
--- NOTE | 2025-03-25 07:19 | P.PNAN_ITS ---
Anes - Initial Pre Proc Eval Procedure: Operation Date: 03/25/25 07:30 Proposed Procedures p Repeat Section with Tubal Ligation - Minh Alvarado MD Date/Time: 03/25/25 07:19 Surgeon: Minh Alvarado MD Pre Op Diagnosis: Patient Data Age: 29 Gender: F Height: 1.55 m Weight: 75 kg Last Vital Signs Temp 36.8 C 03/25/25 05:04 Pulse 89 03/25/25 05:04 BP 137/82 03/25/25 05:04 O2 Del Method Room Air 03/25/25 06:46 Allergies Allergy/AdvReac Type Severity Reaction Status Date / Time Penicillins Allergy Anaphylaxis Verified 03/20/25 09:43 Home Medications ?Medication ?Instructions ?Recorded ?Confirmed ?Type vit no.95-ferrous 1 tablet PO DAILY 02/28/25 03/20/25 History fumarate 28 mg-folic acid 800 mcg tablet () Laboratory Tests 03/25/25 05:19 WBC 10.0 K/mm3 (4.5-10.0) RBC 4.03 L M/mm3 (4.2-5.4) Hgb 10.6 L g/dL (12.0-15.0) Hct 33.7 L % (37.0-47.0) MCV 83.6 fl (80-100) MCH 26.3 pg (26-34) MCHC 31.5 L g/dl (32-36) RDW 15.1 H % (11.5-14.5) Plt Count 155 k/mm3 (150-375) MPV 10.3 fl (7.4-10.4) Immature Gran % (Auto) 0.5 % (0-0.5) Neut % (Auto) 66.2 % (45.5-73.1) Lymph % (Auto) 27.4 % (18.3-44.2) [place] % (Auto) 5.2 % (2.6-8.5) Eos % (Auto) 0.2 % (0-4.4) Baso % (Auto) 0.5 % (0.2-1.2) Lymph # (Auto) 2.73 K/mm3 (0.9-3.2) [place] # (Auto) 0.5 K/mm3 (0.1-0.6) Eos # (Auto) 0.0 K/mm3 (0-0.3) Baso # (Auto) 0.1 K/mm3 (0.0-0.1) Abs Immat Gran (auto) 0.05 H K/mm3 (0.00-0.031) Absolute Neuts (auto) 6.6 K/mm3 (1.3-6.7) Absolute Nucleated RBC 0.000 K/mm3 (0.0-0.012) Nucleated RBC % 0.0 % (0.0-0.2) Sodium 125 L mmol/L (137-145) Potassium 4.1 mmol/L (3.4-5.0) Chloride 106 mmol/L (98-107) Carbon Dioxide 19 L mmol/L (22-30) Anion Gap 0 L mmol/L (4-12) BUN 11 mg/dL (7-17) Creatinine 0.58 L mg/dL (0.7-1.0) Estim Creat Clear Calc 112 ml/min Estimated GFR > 60 (59 - ) Glucose 87 mg/dL (65-110) Calcium 9.0 mg/dL (8.4-10.2) Total Bilirubin 0.5 mg/dL (0.2-1.3) AST 23 U/L (14-36) ALT 12 U/L (6-35) Alkaline Phosphatase 174 H U/L (38-126) Total Protein 6.5 g/dL (6.3-8.2) Albumin 3.4 L g/dL (3.5-5.1) Syphilis IgG/IgM Ab Non-reactive (Nonreactive) Hep Bs Antigen Negative (Negative) HIV 1&2 Ab/P24 Ag 4thGn Negative (Negative) Rubella IgG Antibody 4.8 L IU/ML (10 - ) Patient hx anesthesia problems: none Family hx anesthesia problems: none Results Review: All pre-operative results and documents have been reviewed as part of the pre- operative evaluation. [facility] Past Medical History Medical History Bipolar 1 disorder, mixed Surgical History Surgical History Previous section x2 Family History Family History Grandparent Acute myocardial infarction Grandparent Ovarian cancer Social History Social History Smoking status: Former smoker Substance use: never Do You Feel Safe in your Home?: Yes Lack of Transportation: No Lack of Food: Never True Current Housing: I Have Housing Concerned About Future Housing: No Difficulty Paying Gas/Electric Bills: No Difficulty Paying for Meds: No Currently Unemployed: No Education: High School Diploma/GED Difficulty w/ Childcare or Family Care: No Living arrangements: with family Gender identity (if verbalized by the patient): Female Spiritual care concerns: No Anes - Eval Final PreProcedure Day of Procedure 03/25/25 07:19 Patient weight: normal Heart: regular rate and rhythm Lungs: clear to auscultation Airway: Mallampati scale class II and special considerations poor dentition Neurological: alert and oriented Last oral intake: >/= 8 hours ASA classification: III Emergent: no Anesthetic plan: proceed Anesthesia type and monitoring: regional spinal and standard monitoring Results Review: All pre-operative results and documents have been reviewed as part of the pre- operative evaluation. Informed Consent: The patient's anesthetic plan and its attendant risks and benefits were discussed with the patient/family/POA. Questions were solicited and answers provided to the satisfaction of the patient/family/POA.
--- NOTE | 2025-03-25 07:44 | PM.IMHP ---
H&P: HPI History of Present Illness Date/Time: 03/25/25 07:44 Chief Complaint: repeat c section Narrative: Patient is a 29 year old at 39w5d who presents for repeat c section and bilateral salpingectomy. Her has been complicated by hx of c section x2. She desires permanent sterilization at the time of her c section. She has completed her childbearing and does not desire future pregnancies. She declines any reversible options. Risks, benefits, and alternatives have been discussed with the patient. She reports good movement. No cramping or bleeding. Irregular contractions. Review of Systems Review of Systems: All systems reviewed & are unremarkable except as noted in HPI and below PMFSH Past Medical History Medical History Bipolar 1 disorder, mixed Surgical History Surgical History Previous section x2 Family History Family History Grandparent Acute myocardial infarction Grandparent Ovarian cancer Social History Social History Smoking status: Former smoker Substance use: never Do You Feel Safe in your Home?: Yes Lack of Transportation: No Lack of Food: Never True Current Housing: I Have Housing Concerned About Future Housing: No Difficulty Paying Gas/Electric Bills: No Difficulty Paying for Meds: No Currently Unemployed: No Education: High School Diploma/GED Difficulty w/ Childcare or Family Care: No Living arrangements: with family Gender identity (if verbalized by the patient): Female Spiritual care concerns: No Meds Home Medications and Allergies Home Medications ?Medication ?Instructions ?Recorded ?Confirmed ?Type vit no.95-ferrous 1 tablet PO DAILY 02/28/25 03/20/25 History fumarate 28 mg-folic acid 800 mcg tablet () Allergies Allergy/AdvReac Type Severity Reaction Status Date / Time Penicillins Allergy Anaphylaxis Verified 03/20/25 09:43 Vital Signs Vital Signs - 24 hr 03/25/25 05:04 03/25/25 06:46 Temperature 98.2 F Pulse Rate 89 Blood Pressure 137/82 Oxygen Delivery Room Air Exam Const: General: comfortable and no acute distress Eyes: General: appearance normal, both eyes and all related structures Resp: Effort & Inspection: normal respiratory effort Cardio: Rate: regular rate Extrem: General: normal to inspection Psych: Mental Status: mental status grossly normal H&P: Results Labs Labs: Short CBC 03/25/25 Range/Units 05:19 WBC 10.0 (4.5-10.0) K/mm3 Hgb 10.6 L (12.0-15.0) g/dL Hct 33.7 L (37.0-47.0) % Plt Count 155 (150-375) k/mm3 BMP 03/25/25 05:19 Sodium 125 L Potassium 4.1 Chloride 106 Carbon Dioxide 19 L BUN 11 Creatinine 0.58 L Glucose 87 Calcium 9.0 Liver Function 03/25/25 Range/Units 05:19 Total Bilirubin 0.5 (0.2-1.3) mg/dL AST 23 (14-36) U/L ALT 12 (6-35) U/L Alkaline Phosphatase 174 H (38-126) U/L Albumin 3.4 L (3.5-5.1) g/dL Assessment and Plan Assessment and plan (1) Hx of section complicating : Code(s): O34.219 - Maternal care for unspecified type scar from previous delivery Status: Acute Assessment and Plan: - risks benefits and alternatives to repeat c section discussed with patient who voices understanding and would like to proceed with repeat c section - patient has completed childbearing and does not desire future pregnancies. Desires permanent sterilization at time of c section. Risks, benefits, and alternatives discussed with patient who voices understanding. Consents signed. Will proceed with bilateral salpingectomy at time of c section.
--- NOTE | 2025-03-25 07:49 | WPDHPUPDATE1 ---
History and Physical Update Update Date/Time: 03/25/25 07:49 History and Physical has been reviewed, including an updated exam of the patient. There are NO changes in the patient's condition. Risks, benefits, and alternatives have been discussed and questions answered. Patient agrees to proceed with procedure.
[2025-03-25] MEDS: FAMOTIDINE 20 MG/2 ML VIAL IV PUSH (08:43)
[2025-03-25] MEDS: ONDANSETRON INJ 4 MG/2 ML VIAL IV PUSH (08:43)
[2025-03-25] MEDS: CLINDAMYCIN 900 MG/D5W 50 ML 900 MG/50 ML PIGGYBACK 50 MG IVPB (08:57)
[2025-03-25] MEDS: GENTAMICIN 60 MG/50 ML NS 60 MG/50 ML BAG 100 MG IVPB (09:12)
[2025-03-25] MEDS: OXYTOCIN 30 UNITS/NS 500 ML 30 UNITS/500 ML BAG 125 UNITS IV CONT (10:43)
--- NOTE | 2025-03-25 10:50 | S_PTH ---
PATIENT: Ricardo Lu LOC: [facility] U#:[id number] AGE/SX: 29/F ROOM: 292 RE03/25/[address]: Jeremiah Romo MD : 1995 BED: 00 DIS: 03/28/2025 SPEC #: [id number] RECD: 03/25/25 10:54 STATUS: KARISSA REQ #: [id number] WES: 03/25/25 10:[address]: Minh Alvarado DEPT: [facility] Surgical RECD BY: Mercedes Aragon ENTERED: 03/25/25 10:54 SP TYPE: Surgical OTHR DR: Sammy GarciaMD Tissues: A - Fallopian Tube Bilateral Procedures: Gross and Microscopic Level 2 Hematoxylin and Eosin Stain
--- NOTE | 2025-03-25 12:03 | P.PCNOB_ITS ---
OB - Delivery Note Procedure Delivery date: 03/25/25 Pre-op diagnosis: Previous Delivery Post-op Diagnosis: Same Induction method: None Delivery monitor: External FHT Prior to decision for section, ACOG/SMFM labor guidelines were considered and discussed with the patient and staff. Decision made to proceed with the section.: Yes Procedure Performed: Repeat Surgeon: Minh Alvarado MD Anesthesia type: Spinal Description of Procedure/Findings: The patient was taken to the operating room where she was placed in the dorsal supine position with a leftward tilt. The electronic monitor was placed and heart rate was found to be reassuring. She was prepped and draped in the normal sterile fashion, and anesthesia was checked to be adequate. A Pfannenstiel skin incision was made with the scalpel and carried through to the underlying layer of fascia with the scalpel. The fascia was incised in the midline and the incision extended laterally with the Espinoza scissors. The superior aspect of the fascial incision was then grasped with Randi clamps, elevated, and the underlying rectus muscles dissected off bluntly and with Espinoza scissors. Attention was then turned to the inferior aspect of the fascial incision, which in similar fashion was grasped, elevated, and the rectus muscles dissected off.? The rectus muscles were then in the midline, and the peritoneum entered using two Peans and Metzenbaum scissors. The peritoneal incision was extended superiorly and inferiorly with good visualization of the bladder. With the bladder blade providing retraction and visualization, the lower uterine segment was incised in a transverse fashion with the scalpel. The uterine incision was then extended laterally. The bladder blade was removed and the 's head was elevated and delivered atraumatically. The remainder of the was then delivered without difficulty, and the infant's nose and mouth were suctioned with the bulb suction. The umbilical cord was doubly clamped and cut. The was then handed off to the waiting nursing staff. Specimens then obtained as listed below. The placenta was then removed manually and the uterus was exteriorized and cleared of all clots and debris. The uterine incision was repaired with 0- Monocryl in a running, interlocked fashion. A bilateral salpingectomy was performed by grasping the right fallopian tube with a Canyon and transecting the mesosalpinx using the Ligasure device. The tube was removed to the cornua of the uterus. The same procedure was performed on the left side. The posterior cul-de-sac was manually cleared of all clots and debris. The uterus was returned to the abdomen. The gutters were then manually cleared of all clots and debris.? The uterine incision was visualized to be hemostatic. The fascia was reapproximated with 0-Vicryl in a running fashion. The subcutaneous tissues were irrigated with warmed normal saline, and hemostasis was assured. The skin was closed with 4-0 monocryl in a running subcuticular stitch. Fundal pressure was applied to express remaining intrauterine clots and debris. The patient tolerated the procedure well. Sponge, lap, and needle counts were correct times three per nursing. The patient was taken to the recovery room in stable condition. Estimated Blood Loss: 300 Complications: No immediate complications Condition: Stable Disposition: Floor Baby Date of : 03/25/25 Gestational Age by Date: 39 gender: Male Weight (pounds): 7 Weight (ounces): 15 presentation: vertex position: Left Occiput Anterior Placenta delivery description: Expressed Cord Vessel Description: 3 Vessels and Delayed Cord Clamping
--- NOTE | 2025-03-25 12:50 | OBPPTRN ---
Patient transferred to post room #292 via stretcher. Support person present. Oriented to unit, room, information board, rooming in, admission packet and security measures. Patient verbalizes understanding.
--- NOTE | 2025-03-25 13:00 | PC.NURSE ---
Per primary RN, patient breastfed and bottle fed formula at the first feeding. Patient is requesting bottles and states that she will let us know if she wants to breastfeed or pump and needs any assistance.
--- NOTE | 2025-03-25 13:40 | P.PNOB_ITS ---
OB - PN: Subj Subjective Date/time seen: 03/25/25 12:40 Interval history: At bedside to assess bleeding. Patient had QBL 300cc at c section, has had minimal bleeding until just prior to transport upstairs. Had large amount of clots and bleeding on fundal massage per RN that resolved with continued massage. Patient was given 800mcg rectal cytotec. Patient overall feeling well, no dizziness or fatigue. OB - PN: Obj Data Labs 03/25/25 05:19 03/25/25 05:19 Labs: Laboratory Results - last 24 hr 03/25/25 05:19 WBC 10.0 RBC 4.03 L Hgb 10.6 L Hct 33.7 L MCV 83.6 MCH 26.3 MCHC 31.5 L RDW 15.1 H Plt Count 155 MPV 10.3 Immature Gran % (Auto) 0.5 Neut % (Auto) 66.2 Lymph % (Auto) 27.4 [place] % (Auto) 5.2 Eos % (Auto) 0.2 Baso % (Auto) 0.5 Lymph # (Auto) 2.73 [place] # (Auto) 0.5 Eos # (Auto) 0.0 Baso # (Auto) 0.1 Abs Immat Gran (auto) 0.05 H Absolute Neuts (auto) 6.6 Absolute Nucleated RBC 0.000 Nucleated RBC % 0.0 Sodium 125 L Potassium 4.1 Chloride 106 Carbon Dioxide 19 L Anion Gap 0 L BUN 11 Creatinine 0.58 L Estim Creat Clear Calc 112 Estimated GFR > 60 Glucose 87 Calcium 9.0 Total Bilirubin 0.5 AST 23 ALT 12 Alkaline Phosphatase 174 H Total Protein 6.5 Albumin 3.4 L Syphilis IgG/IgM Ab Non-reactive Hep Bs Antigen Negative HIV 1&2 Ab/P24 Ag 4thGn Negative Rubella IgG Antibody 4.8 L OB - PN A/P Assessment and Plan (1) S/P : Code(s): Z98.891 - History of uterine scar from previous surgery Status: Acute Assessment and Plan: - uncomplicated RCS - Vitals stable - QBL at delivery 300cc - ~500cc blood loss in postop recovery - s/p cytotec 800mcg rectally - fundal exam normal, small clots expressed with no continued bleeding - continue to monitor bleeding closely Time Spent With Patient Time: Total time spent is greater than 50% in coordination of care (as documented) at patient's floor/unit and/or counseling patient: Review of Systems 2 Review of Systems: All systems reviewed & are unremarkable except as noted in HPI and below Exam 2 Const: General: comfortable and no acute distress O rientation/consciousness: patient oriented x3 Resp: Effort & Inspection: normal respiratory effort GI: Other: soft, nontender, fundus palpated below umbilicus with two clots expressed on fundal rub. No continued bleeding with massage
[2025-03-25] MEDS: KETOROLAC 15 MG/ML VIAL (*BKC) IV PUSH ×2 (15:07→20:38)
[2025-03-25] MEDS: SIMETHICONE 80 MG TAB.CHEW PO (16:36)
[2025-03-25] MEDS: DOCUSATE SODIUM 100 MG CAPSULE PO (16:37)
[2025-03-25] MEDS: LIDOCAINE 5% PATCH 1 PATCH TRANSDERM (16:40)
--- NOTE | 2025-03-25 17:30 | PC.NURSE ---
Breast pump provided due to [maternal request]. Mom is and bottle feeding with formula and plans to continue combo feeding. She has a pump at home but is provided with a hospital pump while here. Instructions given on cleaning, care, usage, that there should be no pain, pumping schedule for milk production, collection, and storage of human milk. Patient was assessed for correct placement, flange size (21mm), to pump for adequate milk production every 3 hours (8 times in 24 hours) 1-2 times at night.?Mother voiced understanding of the education shared along with mom/baby guide and the pump measurement, flange fit handout for additional resource information. Reported to the Primary RN.
[2025-03-26] VITALS (12 sets, daily range): BP systolic 92–123; BP diastolic 40–62; PULSE 67–93; RESP 14–18; TEMP 36.6–37; O2SAT 99–100
[2025-03-26] MEDS: ACETAMINOPHEN 500 MG TABLET 1000 MG PO ×4 (02:37→21:08)
[2025-03-26] MEDS: KETOROLAC 15 MG/ML VIAL (*BKC) IV PUSH (02:37)
[2025-03-26] MEDS: LACTATED RINGERS 1,000 ML 125 ML IV CONT (02:41)
[2025-03-26 06:03] LABS: Immature Granulocyte Percent A 0.5 % (0-0.5); Lymphocytes Absolute Auto 2.85 K/mm3 (0.9-3.2); Mean Corpuscular HGB Conc 31.5 g/dl (32-36); Mean Corpuscular Hemoglobin 27.2 pg (26-34); Mean Corpuscular Volume 86.4 fl (80-100); Nucleated Red Blood Cells Absolute Auto 0.000 K/mm3 (0.0-0.012); Nucleated Red Blood Cells Perc 0.0 % (0.0-0.2); Platelet Count Result 125 k/mm3 (150-375); Red Blood Count 2.28 M/mm3 (4.2-5.4); White Blood Count 9.3 K/mm3 (4.5-10.0)
[2025-03-26 06:09] LABS: Hematocrit 19.7 % (37.0-47.0); Hemoglobin 6.2 g/dL (12.0-15.0)
[2025-03-26] MEDS: SODIUM CHLORIDE 0.9% IV 250 ML 30 ML IV CONT (07:56)
[2025-03-26] MEDS: SIMETHICONE 80 MG TAB.CHEW PO ×3 (09:07→16:33)
[2025-03-26] MEDS: IBUPROFEN 600 MG TABLET PO ×3 (09:08→21:08)
[2025-03-26] MEDS: MULTIVIT/MIN/PREN/FOL AC/IRON TABLET 1 TAB PO (09:08)
[2025-03-26] MEDS: DOCUSATE SODIUM 100 MG CAPSULE PO ×2 (09:08→16:33)
[2025-03-26] MEDS: oxyCODONE HCL (*CRX) 5 MG TAB IR PO (11:37)
--- NOTE | 2025-03-26 12:12 | WPDANLDNPN2 ---
Anes-Prog Note L&D-Neuraxial Date/Time: 03/26/25 12:12 Neuraxial medications: intrathecal PF morphine Opiod-related complaints: none Patient feedback: Patient satisfied with post-operative pain management.
--- NOTE | 2025-03-26 12:13 | WPDANLDPN2 ---
Anes-Prog Note L&D Date/Time: 03/26/25 12:13 Comfortable throughout: section Neuraxial method: spinal Epidural/Spinal procedure site: clean & non-tender Neuro status: Neuro function grossly intact. Cardiovascular status: normal Respiratory status: normal Airway patency: baseline Mental status: baseline Post-Op hydration status: normal Vital Signs: Last Vital Signs Temp 36.8 C 03/26/25 11:32 Pulse 72 03/26/25 11:32 Resp 14 03/26/25 11:32 BP 102/45 L 03/26/25 11:32 Pulse Ox 99 03/26/25 11:32 O2 Del Method Room Air 03/26/25 06:45 Pain score (VAS): 3 I/O: Intake & Output 03/25/25 03/26/25 03/26/25 23:59 07:59 15:59 Intake Total 790 2100 329 Output Total 75 945 200 Balance 715 1155 129 Patient feedback: Patient satisfied with anesthetic care.
--- NOTE | 2025-03-26 16:30 | PC.NURSE ---
Introductions were made, then consulted with patient to assess needs related to . Patient received 2 units of blood today due to a low hemoglobin. Discussed with mother how feedings are going and she states that she is 'dry'. She states that she has pumped a few times and has not gotten anything. Educated patient that frequent stimulation now will support an abundant supply in a few days. She is encouraged to pump every 3 hours if baby is not . Baby has been taking bottles of formula today. Patient has a breast pump at home. Mother voiced understanding of information and will call if there is a request for assistance. Reported to the Primary RN.
[2025-03-26] MEDS: oxyCODONE HCL (*CRX) 5 MG TAB IR 10 MG PO (16:32)
[2025-03-26 18:07] LABS: Hematocrit 29.2 % (37.0-47.0); Hemoglobin 9.5 g/dL (12.0-15.0)
--- NOTE | 2025-03-26 18:34 | PC.NURSE ---
1830- This RN informed Dr. Alvarado of pts 1800 HH results. No new orders given.
--- NOTE | 2025-03-27 00:22 | P.PNOB_ITS ---
OB - PN: Subj Subjective Date/time seen: 03/26/25 08:22 Interval history: POD#1 s/p PLTCS with bilateral salpingectomy Doing well, pain controlled Catheter removed, voiding without issue Hgb dropped overnight, currently receiving 2u pRBC; asymptomatic OB - PN: Obj Data Labs 03/26/25 17:58 03/25/25 05:19 Labs: Laboratory Results - last 24 hr 03/23/25 03/26/25 03/26/25 13:03 05:39 17:58 WBC 9.3 RBC 2.28 L Hgb 6.2 L* D 9.5 L D Hct 19.7 L* 29.2 L MCV 86.4 MCH 27.2 MCHC 31.5 L RDW 15.7 H Plt Count 125 L MPV 10.9 H Immature Gran % (Auto) 0.5 Neut % (Auto) 62.9 Lymph % (Auto) 30.8 [place] % (Auto) 5.4 Eos % (Auto) 0.1 Baso % (Auto) 0.3 Lymph # (Auto) 2.85 [place] # (Auto) 0.5 Eos # (Auto) 0.0 Baso # (Auto) 0.0 Abs Immat Gran (auto) 0.05 H Absolute Neuts (auto) 5.8 Absolute Nucleated RBC 0.000 Nucleated RBC % 0.0 Crossmatch See Detail OB - PN A/P Assessment and Plan (1) S/P : Code(s): Z98.891 - History of uterine scar from previous surgery Status: Acute Assessment and Plan: - with bilateral salpingectomy (2) Acute blood loss anemia: Code(s): D62 - Acute posthemorrhagic anemia Status: Acute Assessment and Plan: - Hgb 10.6 preop > 6.2 - asymptomatic - receiving 2u pRBC - recheck in PM Plan day: 1 Plan: routine care Time Spent With Patient Time: Total time spent is greater than 50% in coordination of care (as documented) at patient's floor/unit and/or counseling patient: Review of Systems 2 Review of Systems: All systems reviewed & are unremarkable except as noted in HPI and below Exam 2 Const: General: comfortable and no acute distress O rientation/consciousness: patient oriented x3 Resp: Effort & Inspection: normal respiratory effort GI: Other: soft, nontender, nondistended; incision c/d/i
[2025-03-27] MEDS: ACETAMINOPHEN 500 MG TABLET 1000 MG PO ×4 (03:04→22:05)
[2025-03-27] MEDS: IBUPROFEN 600 MG TABLET PO ×4 (03:04→22:05)
--- NOTE | 2025-03-27 07:53 | PC.NURSE ---
1940- Mother called out for RN assistance, states fell onto floor as she was holding him in her arms while scrolling on phone. Please see chart.
--- NOTE | 2025-03-27 07:55 | PC.NURSE ---
2049- pt sitting in bathroom in dark on floor crying, upset that fell onto floor, pt came out of restroom and assited back into bed by this RN, pain medications declined at first, however decided to take. This RN offered encouragement and reassurance. FOB at bedside with mother expressing gratefullness that was ok after fall.
--- NOTE | 2025-03-27 07:57 | PC.NURSE ---
0230- Pt asleep at this time, call light within reach
[2025-03-27 09:05] VITALS: BP 116/72; PULSE 74; RESP 18; TEMP 36.2; O2SAT 100
[2025-03-27] MEDS: MULTIVIT/MIN/PREN/FOL AC/IRON TABLET 1 TAB PO (09:53)
[2025-03-27] MEDS: DOCUSATE SODIUM 100 MG CAPSULE PO ×2 (09:53→15:59)
[2025-03-27] MEDS: SIMETHICONE 80 MG TAB.CHEW PO ×2 (09:53→15:59)
[2025-03-27] MEDS: LIDOCAINE 5% PATCH 1 PATCH TRANSDERM (09:54)
--- NOTE | 2025-03-27 17:56 | PC.NURSE ---
1259. Introductions were made, then consulted with patient to assess needs related to . Discussed with mother her plans to feed her and the experience so far. Resources provided for inpatient and outpatient services with the feeding sheet, mom/baby guide and name written on the communication board. Mother voiced understanding of information and will call if there is a request for assistance. ?Observed mother latching to the [right] breast in [cross cradle] position. [was not] able to maintain an appropriate latch. Mother [declines] nipple pain/discomfort [throughout feeding]. Mother was encouraged to do skin to skin and allow baby to show more feeding cues and attempt again. Mother was also encouraged to continue supplementation after feeding attempts due to infants weight loss. Reviewed using the blue feeding sheet to record time and duration of feeding. Mother voiced understanding of the education shared, to call for assistance if the does not latch or if there is discomfort with . name/number on communication board. Reported to the Primary RN.?
[2025-03-27 18:55] VITALS: BP 105/58; PULSE 72; RESP 14; TEMP 36.7; O2SAT 98
[2025-03-28] MEDS: IBUPROFEN 600 MG TABLET PO ×2 (04:15→10:20)
[2025-03-28] MEDS: ACETAMINOPHEN 500 MG TABLET 1000 MG PO ×2 (04:15→10:20)
[2025-03-28 07:35] VITALS: BP 113/62; PULSE 80; RESP 16; TEMP 37; O2SAT 99
[2025-03-28] MEDS: MULTIVIT/MIN/PREN/FOL AC/IRON TABLET 1 TAB PO (09:23)
[2025-03-28] MEDS: SIMETHICONE 80 MG TAB.CHEW PO (09:23)
[2025-03-28] MEDS: DOCUSATE SODIUM 100 MG CAPSULE PO (09:23)
[2025-03-28] MEDS: MEASLES,MUMPS,RUBELLA VACCINE 0.5 ML VIAL SUB-Q (09:27)
--- NOTE | 2025-03-28 12:07 | P.PNOB_ITS ---
OB - PN: Subj Subjective Date/time seen: 03/28/25 12:07 Interval history: POD#1 s/p PLTCS with bilateral salpingectomy Doing well, pain controlled Catheter removed, voiding without issue Hgb dropped overnight, currently receiving 2u pRBC; asymptomatic Patient comments: no complaints, pain well controlled and tolerating diet OB - PN: Obj Data Labs 03/26/25 17:58 03/25/25 05:19 OB - PN A/P Plan day: 2 Plan: routine care and discharge home Time Spent With Patient Time: Total time spent is greater than 50% in coordination of care (as documented) at patient's floor/unit and/or counseling patient: Exam 2 Const: General: comfortable and no acute distress Resp: Effort & Inspection: normal respiratory effort Auscultation: no rales, no rhonchi and no wheezes Cardio: Rate: regular rate Heart sounds: no click, no murmurs and no rubs GI: GI Palp: Yes Soft to palpation and No Tenderness to palpation present (GI) Auscultation: normal bowel sounds Extrem: General: normal to inspection, no pedal edema and no calf tenderness
--- NOTE | 2025-03-28 12:08 | P.DS_ITS ---
DS: Admitting Diagnosis Discharge Date 03/28/2025 Admitting Diagnosis Term OB - DS: Summary OB Procedures : None OB Procedures Intrapartum: Spontaneous Vag Delivery OB Procedures: : None Peripartum Data Procedures: Procedures Operation Date: 03/25/25 07:30 Actual Procedure Side Surgeon p Section Minh Alvarado MD Time Spent with Patient Time attestation: Total time spent providing and/or coordinating discharge services: DS: Data Data Completed and Pending Completed studies during hospitalization: Pending at discharge 03/25/25 10:50 Surgical [PTH] Routine Discharge Plan Discharge Discharging Clinician: Jeremiah Romo Patient Disposition: Home Activity: pelvic rest Diet: regular Patient Instructions: Antibiotic Form Patient Language: Tamazight Stand Alone Forms: General Discharge Information Follow-up/Referrals: Jeremiah Romo MD [Physician] - Discharge Medications: Continued PNV no.95-ferrous fumarate-FA [] 28 mg iron- 800 mcg tablet 1 tablet PO DAILY Date of admission: 03/25/25 04:54 Primary Care Provider: JairoSammy Admitting Provider: Minh Alvarado Attending physician on admission: Minh Alvarado Condition: Stable
[2025-03-29 09:26] VITALS: BP 115/62; PULSE 92; RESP 18; TEMP 37.1; O2SAT 100
== END 2025-03-28 13:00 | disposition home or self-care (01) | DRG 539 ==
LOC: ANHOB2 03-28 12:09 → ANHLDR 03-29 09:14
PROVIDERS: Admitting Provider Obstetrics & Gynecology; PCP Family Medicine; Visit Provider Obstetrics & Gynecology
PROC: 10D00Z1 Extraction of Products of Conception, Low, Open Approach (ICD-10-PCS; CPT 59514; principal; 2025-03-25 07:30)
DX: O34.211 Maternal care for low transverse scar from previous cesarean delivery (principal); O69.81X0 Labor and delivery complicated by cord around neck, without compression, not applicable or unspecified; Z37.0 Single live birth; Z3A.39 39 weeks gestation of pregnancy; O77.0 Labor and delivery complicated by meconium in amniotic fluid; D62 Acute posthemorrhagic anemia; O90.81 Anemia of the puerperium; O72.1 Other immediate postpartum hemorrhage; O99.344 Other mental disorders complicating childbirth; F31.89 Other bipolar disorder; Z30.2 Encounter for sterilization
CPT/HCPCS: 36415; 36430; 80053; 85014; 85018; 85025; 86593; 86703; 86762; 87340; 88302; 90710; A9270; G0432; J1100; J1580; J1596; J1885; J2274; J2371; J2405; J2590; J7050; J7120; P9016

== ENCOUNTER 2025-05-23 12:27 | Emergency (ER) | payer OTHER, SELFPAY ==
[2025-05-23 12:31] VITALS: BP 119/81; PULSE 60; RESP 16; O2SAT 98
[2025-05-23 12:37] VITALS: BP 106/60; PULSE 60
[2025-05-23 12:38] VITALS: BP 116/74; PULSE 62
--- NOTE | 2025-05-23 12:46 | ECG_ITS ---
Test Date: 2025-05-23 13:06:01 Measurements Intervals [place] Rate: 57 P: -1 SC: 126 QRS: 80 QRSD: 104 T: 27 QT: 447 QTc: 438 Interpretive Statements SINUS BRADYCARDIA NONSPECIFIC ST-T WAVE ABNORMALITY- ANTERIOR LEADS BORDERLINE ECG No previous ECG available for comparison Electronically Signed On 05-23-2025 13:39:36 CDT by Todd Bone D.O.
--- NOTE | 2025-05-23 12:46 | ED.DIZZY ---
HPI - Dizziness General Chief Complaint: Dizziness Stated Complaint: dizziness Time Seen by Provider: 05/23/25 12:45 Source: patient and EMS Mode of arrival: EMS History of Present Illness HPI Narrative: This is a 29 female 18 weeks presents via EMS with some sensation of lightheaded and was having lower blood pressure. Patient has frontal sinus congestion bilateral ear pressure with no fever chills no shortness of breath no abdominal pain no dysuria no flank pain no fever chills no nausea vomiting. Symptoms started few days ago and has progressively worsened prior to arrival. Timing: gradual onset Severity: mild Description: lightheadedness Related Data Home Medications ?Medication ?Instructions ?Recorded ?Confirmed ?Last Taken ?Type vit no.95-ferrous 1 tablet PO DAILY 02/28/25 03/20/25 03/20/25 History fumarate 28 mg-folic acid 800 mcg tablet () Allergies Allergy/AdvReac Type Severity Reaction Status Date / Time Penicillins Allergy Anaphylaxis Verified 03/20/25 09:43 Review of Systems Review of Systems: All systems reviewed & are unremarkable except as noted in HPI and below PMFSH Past Medical History Medical History Bipolar 1 disorder, mixed Surgical History Surgical History Previous section x2 Family History Family History Grandparent Acute myocardial infarction Grandparent Ovarian cancer Social History Social History Smoking status: Former smoker Substance use: never Do You Feel Safe in your Home?: Yes Lack of Transportation: No Lack of Food: Never True Current Housing: I Have Housing Concerned About Future Housing: No Difficulty Paying Gas/Electric Bills: No Difficulty Paying for Meds: No Currently Unemployed: No Education: High School Diploma/GED Difficulty w/ Childcare or Family Care: No Living arrangements: with family Gender identity (if verbalized by the patient): Female Spiritual care concerns: No Exam Const: General: healthy appearing, no acute distress and alert Nutritional Appearance: well nourished Orientation/consciousness: patient oriented x3 Limitations: no limitations HENMT: Other: His frontal sinus tenderness to palpation with bilaterally or dullness and nasal turbinates inflamed and erythematous Eyes: Conjunctivae: conjunctivae normal Pupils: Equal, round and reactive pupils present Neck: Neck: normal visual inspection Chest: Chest palpation & inspection: normal inspection of the chest Resp: Effort & Inspection: normal respiratory effort Auscultation: clear to auscultation bilaterally Cardio: Rate: regular rate Rhythm: regular rhythm GI: GI Palp: Yes Soft to palpation Auscultation: normal bowel sounds : General: Yes bladder normal to palpation Back/Spine/Pelvis: Back: no CVA tenderness Skin: General skin exam: normal color Rashes: no rashes Wounds: no wounds Neuro: General: patient oriented x3, moves all extremities, no meningeal signs and no focal motor deficits Extrem: General: normal to inspection and no clubbing, cyanosis or edema Course Course Emergency Course: patient a blood pressure 116/74 received a L of normal saline, urinalysis was without any abnormalities EKG showed normal sinus rhythm blood work was unremarkable, will treat patient with a sinus infection and send antibiotics to her local pharmacy will give her a dose of Zithromax here in the emergency room. Vital Signs Vital signs: Vital Signs Pulse Rate 60 05/23/25 12:31 Respiratory Rate 16 05/23/25 12:31 Blood Pressure 119/81 05/23/25 12:31 Pulse Oximetry 98 05/23/25 12:31 Oxygen Delivery Room Air 05/23/25 12:31 Pulse Rate 62 05/23/25 12:38 Respiratory Rate 16 05/23/25 12:31 Blood Pressure 116/74 05/23/25 12:38 Pulse Oximetry 98 05/23/25 12:31 Oxygen Delivery Room Air 05/23/25 12:31 Critical Care Time Critical Care Time Critical Care Time: No Discharge Plan Discharge Clinical Impression: Dehydration Sinusitis Qualifiers: Sinusitis location: frontal Chronicity: acute Recurrence: non-recurrent Qualified Code(s): J01.10 - Acute frontal sinusitis, unspecified Patient Disposition: Home Condition: Stable Instructions: Antibiotic Form, Dehydration (ED), Sinusitis (ED), Lightheadedness (ED) Additional Instructions: advised take medication as prescribed drink plenty of fluids and follow with primary if symptoms persist or worsen. Patient Language: Georgian Prescriptions: New azithromycin [Zithromax Z-Nestor] 250 mg tablet See Rx Instructions .ROUTE .COMPLEX Qty: 6 0RF Rx Instructions: For 250 mg dose pack: take 500 mg today (day 1), then 250 mg for 4 days (days 2-5) No Action PNV no.95-ferrous fumarate-FA [] 28 mg iron- 800 mcg tablet 1 tablet PO DAILY Follow-up/Referrals: Radha,MD Sammy [Primary Care Provider, Unknown] Time of Disposition: 13:50
[2025-05-23 12:57] LABS: Hematocrit 36.7 % (35.0-49.0); Hemoglobin 12.0 g/dL (12.0-15.0); Immature Granulocyte Percent A 0.4 % (0.0-0.0); Lymphocytes Absolute Auto 2.39 K/mm3 (1.10-4.50); Mean Corpuscular HGB Conc 32.7 g/dL (32-36); Mean Corpuscular Hemoglobin 27.1 pg (27.0-31.0); Mean Corpuscular Volume 82.8 fL (78.0-102.0); Nucleated Red Blood Cells Absolute Auto 0.00 K/mm3 (0.00-0.00); Nucleated Red Blood Cells Perc 0.0 % (0-0.0); Platelet Count Result 203 K/mm3 (150-420); Red Blood Count 4.43 M/mm3 (4.20-5.40); White Blood Count 7.4 K/mm3 (4.8-10.8)
[2025-05-23] MEDS: SODIUM CHLORIDE 0.9% IV 1,000 ML 999 ML IV CONT (12:58)
[2025-05-23 13:08] LABS: Alanine Aminotransferase 23 U/L (6-35); Albumin Level 4.3 g/dL (3.5-5.1); Alkaline Phosphatase 81 U/L (38-126); Anion Gap 9 mmol/L (4-12); Aspartate Amino Transferase 31 U/L (14-36); Bilirubin,Total 0.7 mg/dL (0.2-1.3); Blood Urea Nitrogen 14 mg/dL (7-17); Calcium 9.1 mg/dL (8.4-10.2); Carbon Dioxide 26 mmol/L (22-30); Chloride 106 mmol/L (98-107); Estimated Glomerular Filt Rate > 60; Glucose 95 mg/dL (65-110); Osmolality Calculated 292 mOsm/kg (285-295); Potassium 4.1 mmol/L (3.4-5.0); Sodium 141 mmol/L (137-145); Total Protein 7.2 g/dL (6.3-8.2)
--- OUTSIDE RECORDS SUMMARY | 2025-05-23 13:25 | XMS_ITS | Clinical Summary ---
Author Organization [facility] Address [address] [place] [address] Phone Care Team Providers Care Program Lead Name Role Phone Sammy Garcia MD Primary Care Provider [phone] Herbert Schilling MD Unavailable [phone] Allergies Active Allergy Reactions Criticality Noted Date [...] Immunization (1 - 3-dose SCDM series) 12/05/2022 Influenza Immunization (#1) 04/22/202506/23, 06/16/2022, 04/24/2016, Additional history exists SARS-COV-2 Immunization ( season) 2025 01/12/2021 Td Immunization Every 10 Years (Adults With [...] measures to stabilize the patient. Care Teams Program Lead Relationship Specialty Start Date End Date Sammy Garcia MD [address] [place] [address] [place] [address] PCP - General Family Medicine 05/14/24 Herbert Schilling MD [address] [place] [address] [place] [address] Family Medicine 05/14/24
--- OUTSIDE RECORDS SUMMARY | 2025-05-23 13:25 | XMS_ITS | Encounter Summary ---
Author Organization [facility] Address [address] [place] [address] Phone Care Team Providers Care Accounts Receivable Bookkeeper Name Role Phone Herbert Schilling MD Primary Care Provider [phone] Sammy Garcia MD Primary Care Provider [phone] Herbert Schilling MD Unavailable [phone] Reason for Referral * PT/OT/ST (Routine) - Closed Specialty Diagnoses / Procedures Referred By Contsaleem t Referred To Contact Physical Therapy Diagnoses Spinal stenosis, cervical region Sammy Garcia MD [address] [place] [address] [place] [address] Phone: tel: fax: [facility] [address] [address] Phone: tel: fax: Referral ID Status Reason Start Date Expiration Date Visits Re quested Visits Authorized [id number] Closed 05/11/2024 50 50 Scheduling Instructions Encounter Details Date Type Department Care Team (Late st Contact Info) Description 05/11/2024 Transcribe Orders [facility] [address] [place] [address] Sammy Garcia MD [address] [place] [address] [place] [address] Spinal stenosis, cervical region (Primary Dx) Social [...] Primary documented in this encounter Care Teams Accounts Receivable Bookkeeper Relationship Specialty Start Date End Date Herbert Schilling MD [address] [place] [address] PCP - General Family Medicine 08/25/21 05/13/24 Sammy Garcia MD [address] [place] [address] [place] [address] PCP - General Family Medicine 05/14/24 Herbert Schilling MD [address] [place] [address] [place] [address] Family Medicine 05/14/24 documented as of this encounter
--- OUTSIDE RECORDS SUMMARY | 2025-05-23 13:25 | XMS_ITS | Clinical Summary ---
Author Organization [facility] Address [address] [place] [address] Care Team Providers Care Referral Clerk Name Role Phone Unavailable Primary Care Provider Unavailabl e Source Comments [facility],non-owned Affiliates and Associated Physician Practices is amultiple site organization consisting of ambulatory clinics and hospital sitesin [place], [place], [place] and [place]. This disclosure is being madepursuant to the Care Everywhere program and may not contain all information available regarding this patient. Last updated 18.[facility] Allergies Active Allergy Reactions Criticality Noted Date Comments Penicillins Unknown 12/07/2024 Social History Tobacco Use Types Packs/Day Years Used Date Smoking Tobacco: Never Assessed Estimated Date of Delivery Comme nts Yes 03/27/2025 Based on Patient Reported Sex and Gender Information Value Date Recorded Sex Assigned at Not on file Legal Sex Female 1:20 PM [employer] Gender Identity Not on file Sexual Orientation Not on file Plan of Treatment Health Maintenance Due Date Last Done Comments HIV SCREENING 12/05/2010 HEPATITIS C SCREENING 12/01/2013 DTAP/TDAP/TD VACCINES (1 - Tdap) 12/05/2014 HEPATITIS B VACCINE (1 of 3 - 19+ 3-dose series) 12/05/2014 PAP SMEAR 12/05/2016 HPV VACCINE (1 - 3-dose SCDM series) 12/05/2022 DEPRESSION SCREENING 08/22/2024 OB-ONE HOUR GLUCOSE 12/19/2024 OB-TDAP CURRENT 12/26/2024 04/24/2016 OB-RHOGAM INJECTION 01/02/2025 OB-GROUP B STREP SCREEN 02/20/2025 COVID-19 VACCINE ( season) 2025 INFLUENZA VACCINE (#1) 2025 3, 06/16/2022, 04/24/2016, Additional history exists ZOSTER VACCINE [...] Doses Required) Completed Insurance MEDICAID - [place] SELF PAY NO INSURANCE Member Subscriber Plan / Payer (Ef fective for All Dates) Name:Ifeanyi Santos Member ID:Not on file Relation to Subscriber:Not on file Name:IFEANYI SANTOS Subscriber ID:Not on file (Home) Address: [address] [place] [address] Payer ID:Not on file Group ID:Not on file Type:Self Pay Address: [place], [place] [facility] MEDICAID - OUT OF STATE
--- OUTSIDE RECORDS SUMMARY | 2025-05-23 13:25 | XMS_ITS | Data Portability ---
Author Organization [facility] Address [address] [place] [address] Assessment Encounter Date Assessment Date Assessment LastModified by Organization Details LastModified Time 03/20/2025 03/20/2025 Patient is ___weeks . Discussed plan. [email or web address] Not available 03/20/2025 09:43:26 Plan of Treatment Reminders Order Date Submit Date Provider Last Modified By Organization Details Last Modified Time Details Appointments None record ed. Lab None record ed. Referral None record ed. Procedures None record ed. Surgeries None record ed. Imaging None record ed. Medication Orders None record ed. Patient TargetsNo targets recorded. Patient InstructionsNo instructions recorded. Reason for Referral None Reported. Results Created Date Observation Date Name Description Value Unit Range Abnormal Flag Note LastModifiedBy Organization Detail LastModifiedTime 02/28/2002/27/2025 CULTU RE: GROUP B STREP SCREE N, REFLE X SUSCE PTIBI LITY result report SEE RESULT S BELOW Test: Cultu re: Group B Strep , Refle x Susce ptibi lity ([facility] ) Speci men Sourc e: Vagin a/Rec laz Speci men Type: Vagin al/Re ctal Speci men Date: 025 1258 Resul t Date: 2024 1519 Resul t Statu s: Final resul t Abnor mal: No Resul ting Lab: [facility] [address] [facility] [address] Tel: CULTU RE ----- ----- ----- --- No Group B strep isola joselito at 2 days (talya ctive broth enhan cemen t) Not Available [facility] (Lab) [address], [place], [address], 03/02/2025 16:23:36 03/01/20 25 03/01/2025 imagi ng/di agnos tic resul t No observ ation record ed. [place] [id number] [facility] [address] [facility], [place], [address], 03/04/2025 14:26:18 03/01/20 25 03/01/2025 imagi ng/di agnos tic resul t No observ ation record ed. [id number] [address], [place], [address], 03/04/2025 14:26:18 03/06/20 25 03/06/2025 US, obste tric, follo w-up No observ ation record ed. [email or web address] [facility] [address], [place], [address], 03/06/2025 16:49:26 03/06/20 25 03/06/2025 US, obste tric, follo w-up No observ ation record ed. [email or web address] [address], [facility], [place], [address], 03/06/2025 17:59:23 03/07/20 25 03/07/2025 imagi ng/di agnos tic resul t No observ ation record ed. [facility] Covid [address] [place] [address] [place] [address], [address], 03/08/2025 16:17:52 Result Notes None recorded. Problems Name Problem SNOMED Code Status Onset Date Resolution Date Notes Provider Name and Address Organization Details Recorded Time 56436719 Completed 202404/02/2025 Izabel young [place] - [facility] 09:40:50 Steriliza tion requested [id number] Completed 2024 BTL with VIRGINIA TAVERAS MD [address], [place], [address], [facility] 5 11:56:35 Past history of section 603057037 Completed 2024 VIRGINIA TAVERAS MD [address], [place], [address], [facility] 5 11:56:47 Anemia of 69854827 Completed 12/2024 : Hgb 11.0 ILIR TAVERAS MD [address], [place], [address], [facility] 5 11:57:06 Problem Notes None recorded. Procedures Surgical History Date Name Laterality Status Provider Name and Address Organization Details Recorded Time 5 SECTION (SURG) completed DIGNA Pérez [facility] 03/27/2025 17:53:23 2 Caesarean Section completed Kenyetta Toño [facility] 01/30/2025 10:34:28 6 Caesarean Section completed Kenyetta Toño [facility] 01/30/2025 10:34:28 Imaging Results None recorded. Procedure Notes None recorded. Medical Equipment None Reported. Allergies Allergen ID Allergen Name Allergen Category Reaction Reaction Severity Criticality Documentation Date Start Date Code Code System Note Provider Name and Address Organization Details Recorded Time 57395 Penicilli n Not available Not available Not available Not available 01/30/20251995 30096 RxNorm Kenyetta young [facility] 5 10:34:23 Medications Name Sig Start Date Stop Date Status Note LastModified by Organization Details LastModified Time gabapentin 100 mg capsule TAKE 1 CAPSULE BY MOUTH THREE TIMES A DAY FOR 30 DAYS 01/30 completed Not Available Not Available Not Available sertraline 50 mg tablet TAKE 1 TABLET BY MOUTH EVERY DAY FOR DEPRESSIO N/MOOD SYMPTOMS 01/30 completed Not Available Not Available Not Available chlorhexidi ne gluconate 0.12 % mouthwash TAKE 15 ML (BUCCAL) 2 TIMES PER DAY FOR 1 WEEKS SWISH AND SPIT 01/30 completed Not Available Not Available Not Available M-Lisa Plus 27 mg iron-1 mg tablet TAKE 1 TABLET BY MOUTH EVERY DAY FOR 30 DAYS active Not Available Not Available No t Available Vitals Date Recorded Body height Body mass index (BMI) Body weight Systolic And Diastolic Provider Name and Address Organization Details Last Updated DateTime 03/13/2025 154.94 cm 30.2 kg/m2 35191.34 g 132/84 mm[Hg] Lamar Brittonton [facility] 03/13/2025 09:37:48 Date Recorded Body height Body mass index (BMI) Body weight Systolic And Diastolic Provider Name and Address Organization Details Last Updated DateTime 03/20/2025 154.94 cm 30.6 kg/m2 19062.96 g 128/83 mm[Hg] DIGNA Pérez [facility] 03/20/2025 09:44:23 Date Recorded Body height Body mass index (BMI) Body weight Systolic And Diastolic Provider Name and Address Organization Details Last Updated DateTime 04/02/2025 154.94 cm 27.2 kg/m2 54338.3 g 117/83 mm[Hg] Izabel Archer [facility] 04/02/2025 09:39:06 Date Recorded Body height Body mass index (BMI) Body weight Systolic And Diastolic Provider Name and Address Organization Details Last Updated DateTime 04/30/2025 154.94 cm 27.8 kg/m2 69811.08 g 117/78 mm[Hg] Patricia Quintero [facility] 04/30/2025 12:38:21 Social History Question Answer Notes LastModified by Organizat ion Details LastModified Time Tobacco Smoking Status Former Smoker Kenyetta young, [facility] 01/30/2025 10:39:56 Are You Blind Or Do You Have Difficulty Seeing? No Information not available 01/30/2025 What Is Your Level Of Caffeine Consumption? Occasional Information not available 01/30/2025 In The 14 Days Before Symptom Onset, Have You Had Close Contact With A Laboratory-confir med COVID-19 While That Case Was Ill? No Information not available 01/30/2025 In The 14 Days Before Symptom Onset, Have You Had Close Contact With A Person Who Is Under Investigation For COVID-19 While That Person Was Ill? No Information not available 01/30/2025 Have You Been To An Area Known To Be High Risk For COVID-19? No Information not available 01/30/2025 Are You Deaf Or Do You Have Serious Difficulty Hearing? No Information not available 01/30/2025 What Type Of Diet Are You Following? REGULAR Information not available 01/30/2025 What Is The Highest Grade Or Level Of School You Have Completed Or The Highest Degree You Have Received? [id number] Information not available 01/30/2025 Are There Any Guns Present In Your Home? No Information not available 01/30/2025 Do You Use Protection During Sex? No [email or web address] Information not available 04/02/2025 Do You Use Your Seat Belt Or Car Seat Routinely? No Information not available 01/30/2025 Are You Sexually Active? Yes Information not available 01/30/2025 Do You Have Smoke And Carbon Monoxide Detectors In Your Home? Yes Information not available 01/30/2025 Do You Use Sunscreen Routinely? No Information not available 01/30/2025 Has Tobacco Cessation Counseling Been Provided? No [email or web address] Information not available 04/02/2025 Do You Have Difficulty Walking Or Climbing Stairs? No Information not available 01/30/2025 Sex: Unknown Functional Status Question Answer Note LastModified by Organizat ion Details LastModified Time Do you use any illicit or recreational drugs? No Information not available 01/30/2025 Do you or have you ever used any other forms of tobacco or nicotine? No [email or web address] Information not available 04/02/2025 What is your level of alcohol consumption? None Information not available 01/30/2025 Are you currently employed? Yes Information not available 01/30/2025 Are you able to walk independently without assistance or assistive devices? [email or web address] Information not available 01/30/2025 Are you able to care for yourself independently? 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 No Information not available 01/30/2025 What is your exercise level? Occasional Information not available 01/30/2025 Mental Status Question Answer Note LastModified by Organization D etails LastModified Time Do you feel stressed (tense, restless, nervous, or anxious, or unable to sleep at night)? [id number] Information not available 01/30/2025 Family History Relationship Description Onset Age of this Age Resolved Age Notes LastModified by Organization Details LastModified Time Father Asthma Not available 10:39:39 Medical History Condition Response Allergies (Food, seasonal, environmental ) N Other N Breast Cancer N Drug/Latex Allergies/Reactions N Blood Transfusion N Dermatologic Disorders N Lung Disease N Defects or Inherited Disease N Breast Problem N Gestational Diabetes N Hematologic disorders N Anesthesia Complications N History of STI N Deep Vein Thrombosis N Polycystic ovary syndrome N Anxiety Disorder N Autoimmune disease N Arthritis N Infertility N Polyps N Acid Reflux (GERD) N History of abnormal pap N Cancer N Stroke N Varicosities N Neurologic/Epilepsy N Endometriosis N High Cholesterol N Headaches N Fibromyalgia N Kidney Disease N Heart Problems N Kidney or Bladder Problems N Thyroid Problems N GI Problems N Eating Disorder N Anemia Y Art (IVF or FET) N Psychiatric Illness N Ovarian Cancer N Diabetes N Pulmonary (TB, Asthma) N Hepatitis/Liver Disease N No Past Medical History N Eczema N Urinary Tract Infection N Abuse/Domestic Violence N Asthma N Trauma/Violence N Depression/ depression N Heart Disease N Pre-Eclampsia N Hypertension N Osteoporosis N Thrombophilias N Gynecological History Statement/Question Response Abnormal Pap N Flow Moderate Date of LMP 06/03/2024 On BCP's at Conception? N Was last menstrual period normal Y STIs/STDs N HPV Vaccine Y Duration of Flow (days) 7 Current Control Method None Age at First Child 20 Are cycles usually normal Y Frequency of Cycle (Q days) 28 Sexually Active? Y Menses Monthly Y Age of first menstrual cycle 12 Sexual Problems? N LMP Definite Obstetrics History GPAL:G 6 P 2 1 3 3 Type Value Full Term 2 Spontaneous 3 Premature 1 Living 3 Total 6 Past Encounters Encounter ID Performer Location Encounter Start Date Encounter Closed Date Diagnosis/Indication Diagnosis SNOMED-CT Code Diagnosis ICD10 Code Diagnosis IMO Codes Diagnosis Note [id number] MD Josie CHOU [address],[facility] [place] [address] 01/30/2025 09:06:07 01/30/2025 10:29:50 Observational assessment 712098809 Z03.74 Z3A.32 [id number] ILIR TAVERAS MD [facility] [address],[facility] [place] [address] 01/30/2025 09:10:01 01/30/2025 12:06:48 care status 562849721 Z34.83 [id number] - Transfer of care from [facility]; labs reviewed from previous clinic (CBC, RPR, HIV, 3h GTT, UA)- overall uncomplica joselito- Passed 3h GTT, mild anemia, normal HIV/RPR- continue PNV Sterilizat ion requested 601535481 Z30.2 19701548 - patient desires permanent sterilizat ion- discussed risks, benefits, and alternativ es of bilateral salpingect lennie, including risks of bleeding, infection and injury to surroundin g organs. Also discussed alternativ e contracept bree options including partner vasectomy and patient declines.- tubal papers signed- plan for bilateral salpingect lennie at time of c section Past pregn oni history of section 605022161 Z98.891 99236326 - plan for repeat c section at 39 weeks (03/20) Anemia of 2734 2003 O99.019 42184429 - Hgb 11.0 in 12/2024- continue to monitor for symptoms [id number] ILIR TAVERAS MD [facility] [address],[facility] [place] [address] 02/11/2025 14:31:54 02/11/2025 17:25:11 Past history of section 763678182 Z98.891 27862600 - plan for repeat c section at 39 weeks- would like bilateral salpingect lennie at time of c section Gestation period, 33 weeks 45566074 Z3A.33 9301287 - continue PNV Premature uterine contraction 973792123 O47.00 4231043 - now resolved, was seen in L&D on Tuesday- dilated 0.5cm- discussed precaution s [id number] ILIR TAVERAS MD [facility] [address],[facility] [place] [address] 02/27/2025 11:47:31 02/27/2025 12:44:57 Past history of section 246422439 Z98.891 66874993 /- plan for repeat c section at 39 weeks, scheduled 03/25- would like bilateral salpingect lennie at time of c section Sterilizat ion requested 190877233 Z30.2 29987835 - patient desires permanent sterilizat ion- discussed risks, benefits, and alternativ es of bilateral salpingect lennie, including risks of bleeding, infection and injury to surroundin g organs. Also discussed alternativ e contracept bree options including partner vasectomy and patient declines.- tubal papers signed at 32 weeks- plan for bilateral salpingect lennie at time of c section Gestation period, 36 weeks 86838705 Z3A.36 3919318 - GBS collected- continue PNV [id number] ILIR TAVERAS MD [facility] [address],[place] [address] 03/06/2025 14:32:32 03/06/2025 15:11:35 Observational assessment [id number] Z03.74 Z87.51 O34.219 Z3A.37 [id number] ILIR TAVERAS MD [facility] [address],[facility] [place] [address] 03/06/2025 14:33:54 03/06/2025 15:45:29 Sterilization requested 009881606 Z30.2 97291837 - patient desires permanent sterilizat ion- discussed risks, benefits, and alternativ es of bilateral salpingect lennie, including risks of bleeding, infection and injury to surroundin g organs. Also discussed alternativ e contracept bree options including partner vasectomy and patient declines.- tubal papers signed at 32 weeks- plan for bilateral salpingect lennie at time of c section Past pregn oni history of section 595860802 Z98.891 37120657 - plan for repeat c section at 39 weeks, scheduled 03/25- would like bilateral salpingect lennie at time of c section Gestation period, 37 weeks 20559860 Z3A.37 7465847 [id number] ILIR TAVERAS MD [facility] [address] [address] 03/13/2025 09:24:25 03/13/2025 10:13:19 Past history of section 946634833 Z98.891 [id number] - plan for repeat c section at 39 weeks, scheduled 03/25- would like bilateral salpingect lennie at time of c section Sterilizat ion requested 794768139 Z30.2 06423915 - patient desires permanent sterilizat ion- discussed risks, benefits, and alternativ es of bilateral salpingect lennie, including risks of bleeding, infection and injury to surroundin g organs. Also discussed alternativ e contracept bree options including partner vasectomy and patient declines.- tubal papers signed at 32 weeks- plan for bilateral salpingect lennie at time of c section Anemia of 2734 2003 O99.019 04559492 - Hgb 11.0 in 12/2024- continue to monitor for symptoms Gestation period, 38 weeks 68377218 Z3A.38 6781551 [id number] ILIR TAVERAS MD [facility] [address],[place] [address] 03/20/2025 09:26:16 03/20/2025 10:11:02 Anemia of 17138979 O99.019 78449000 - Hgb 11.0 in 12/2024- continue to monitor for symptoms Past pregn oni history of section 932265600 Z98.891 12864955 - plan for repeat c section at 39 weeks, scheduled 03/25- would like bilateral salpingect lennie at time of c section Sterilizat ion requested 278410446 Z30.2 74312077 - patient desires permanent sterilizat ion- discussed risks, benefits, and alternativ es of bilateral salpingect lennie, including risks of bleeding, infection and injury to surroundin g organs. Also discussed alternativ e contracept bree options including partner vasectomy and patient declines.- tubal papers signed at 32 weeks- plan for bilateral salpingect lennie at time of c section Gestation period, 39 weeks 43078620 Z3A.39 [id number] MD Josie CHOU [address],[place] [address] 03/25/2025 08:50:45 03/25/2025 09:16:15 [id number] MD Josie CHOU [address],[place] [address] 04/02/2025 09:32:30 04/02/2025 10:04:57 Past history of section 699902072 Z98.891 [id number] S/p c section on . Incision well-heale d without any signs of infection2 . s/p bilateral salpingect lennie at time of c section. She will continue to abstain from intercours e until her 6wk visit.3. RTC 4wks for post-partu m check [id number] ILIR TAVERAS MD [facility] [address],[place] [address] 04/30/2025 12:07:48 04/30/2025 13:07:25 care status 427039133 Z39.2 [id number] S/p RLTCS 6 weeks ago here today for a visit.1. Patient recovering well2. Plans to continue formula feeding3. S/p bilateral salpingect lennie at time of c section4. Patient instructed to follow up in 6 months for well woman exam unless need arises prior Health Concerns Section Related Observation LastModified by Organization Detai ls LastModified Time None Recorded Concern Status LastModified by Organization Details LastModified Time None Recorded Advance Directives Directive None Recorded Payers Insurance Date Sequence Insurance Name Policy Number Policy Koehler Covered Member ID Koehler Member ID Guarantor Name 03/25/2025 2 SUZANNE Lu [id number] [id number] Lu 03/25/2025 2 SUZANNE Lu [id number] Ricardo Lu 05/11/2025 1 [facility] (MEDICAID REPLACEMENT - HMO) Ricardo Lu [id number] Ricardo Lu 03/25/2025 1 [facility] (MEDICAID REPLACEMENT - HMO) Ricardo Aly [id number] Ricardo Lu 04/30/2025 1 [place] [employer] Ricardo Aly [id number] Ricardo Aly Notes Date Note Type Note Provider Name and Address Organization Details Recorded Time 03/13/2025 text/html Generic HPI TemplateReported by Patient ILIR TAVERAS MD [address], [place], [address], [facility] 03/13/2025 10:04:31 03/20/2025 text/html Generic HPI TemplateReported by Patient ILIR TAVERAS MD [address], [place], [address], [facility] 03/20/2025 10:09:18 04/02/2025 text/html ROS as noted in the HPI s/p C/S 03/25. She presents today for her incision check. Her postop course has been unremarkable. She has minimal spotting, denies pain, fever or any other concerning symptoms. She is and her baby is doing well. Her mood is good. Izabel young, [facility] 04/02/2025 14:16:59 04/30/2025 text/html VisitReported by Patient S/p RLTCS on 03/25 at 39 weeks gestation. was uncomplicated. Complications with delivery: none. Patient denies any specific problems since delivery. Patient overall feeling well. Patient is formula feeding without problems. Has not had a period yet. No bleeding. Bowel and bladder function are normal. Pap due 2025. Denies any signs or symptoms of depression. Is coping with parenting well. Patient has not been sexually active since delivery. ILIR TAVERAS MD [address], [place], [address], [facility] 04/30/2025 12:53:32 OBGyn Episode Ob Episode Information Episode Created Date Number of Fetuses Patient Bloodtype Patient rh Status Prepregnancy Weight lbs Domestic Partner Domestic Partner Phone Father Name Lehr Attendant Status 01/31/20 25 1 CLOSED Fetus Data First Name Last Name Admitted to NICU Weight (g) Sex Living Outcome Pediatric Complications Fetus ID Race Codes Race Delivery Type 3430.06 2704 F Full Term [id number] Primary Donta Calculation Initial Donta Date Initial Exam Date Initial Exam Provider Initial Ultrasound Date Last Menstrual Period Date Ultra Sound Weeks Gestation 0 Eighteen To Twenty Week Donta Update Ultra Sound Date Fundal Height At Umbil Quickening Date Ultra Sound Latest Weeks Gestation Final Donta Confirmed By Final Donta Confirmed Date Final Donta Date Ultra Sound Latest Days Gestation 0 0 Menstrual History Last Menstrual Date Menses Monthly On Bcp Conception Prior Menses Frequency Hcg Plus Date Menarche Onset Age Delivery Information Delivery Date Delivery Type Labor Anesthesia Weeks Gestation Incision Type Labor Labor Length Hrs Delivered By Post Complications Tubal Sterilization Discharge Date Comments 6 40.2 Discharge Information Feeding Method Contraceptive Method Maternal HG B and HCT Levels Ob Episode Information Episode Created Date Number of Fetuses Patient Bloodtype Patient rh Status Prepregnancy Weight lbs Domestic Partner Domestic Partner Phone Father Name Lehr Attendant Status 01/31/20 25 1 CLOSED Fetus Data First Name Last Name Admitted to NICU Weight (g) Sex Living Outcome Pediatric Complications Fetus ID Race Codes Race Delivery Type , Spontane ous [id number] Donta Calculation Initial Donta Date Initial Exam Date Initial Exam Provider Initial Ultrasound Date Last Menstrual Period Date Ultra Sound Weeks Gestation 0 Eighteen To Twenty Week Donta Update Ultra Sound Date Fundal Height At Umbil Quickening Date Ultra Sound Latest Weeks Gestation Final Donta Confirmed By Final Donta Confirmed Date Final Donta Date Ultra Sound Latest Days Gestation 0 0 Menstrual History Last Menstrual Date Menses Monthly On Bcp Conception Prior Menses Frequency Hcg Plus Date Menarche Onset Age Delivery Information Delivery Date Delivery Type Labor Anesthesia Weeks Gestation Incision Type Labor Labor Length Hrs Delivered By Post Complications Tubal Sterilization Discharge Date Comments 0 Discharge Information Feeding Method Contraceptive Method Maternal HG B and HCT Levels Ob Episode Information Episode Created Date Number of Fetuses Patient Bloodtype Patient rh Status Prepregnancy Weight lbs Domestic Partner Domestic Partner Phone Father Name Lehr Attendant Status 01/31/20 25 1 CLOSED Fetus Data First Name Last Name Admitted to NICU Weight (g) Sex Living Outcome Pediatric Complications Fetus ID Race Codes Race Delivery Type 1.16 4 F Prematur e 90009 Repeat Donta Calculation Initial Donta Date Initial Exam Date Initial Exam Provider Initial Ultrasound Date Last Menstrual Period Date Ultra Sound Weeks Gestation 0 Eighteen To Twenty Week Donta Update Ultra Sound Date Fundal Height At Umbil Quickening Date Ultra Sound Latest Weeks Gestation Final Donta Confirmed By Final Donta Confirmed Date Final Donta Date Ultra Sound Latest Days Gestation 0 0 Menstrual History Last Menstrual Date Menses Monthly On Bcp Conception Prior Menses Frequency Hcg Plus Date Menarche Onset Age Delivery Information Delivery Date Delivery Type Labor Anesthesia Weeks Gestation Incision Type Labor Labor Length Hrs Delivered By Post Complications Tubal Sterilization Discharge Date Comments 2 33 Discharge Information Feeding Method Contraceptive Method Maternal HG B and HCT Levels Ob Episode Information Episode Created Date Number of Fetuses Patient Bloodtype Patient rh Status Prepregnancy Weight lbs Domestic Partner Domestic Partner Phone Father Name Lehr Attendant Status 01/31/20 25 1 CLOSED Fetus Data First Name Last Name Admitted to NICU Weight (g) Sex Living Outcome Pediatric Complications Fetus ID Race Codes Race Delivery Type , Spontane ous [id number] Donta Calculation Initial Donta Date Initial Exam Date Initial Exam Provider Initial Ultrasound Date Last Menstrual Period Date Ultra Sound Weeks Gestation 0 Eighteen To Twenty Week Donta Update Ultra Sound Date Fundal Height At Umbil Quickening Date Ultra Sound Latest Weeks Gestation Final Donta Confirmed By Final Donta Confirmed Date Final Donta Date Ultra Sound Latest Days Gestation 0 0 Menstrual History Last Menstrual Date Menses Monthly On Bcp Conception Prior Menses Frequency Hcg Plus Date Menarche Onset Age Delivery Information Delivery Date Delivery Type Labor Anesthesia Weeks Gestation Incision Type Labor Labor Length Hrs Delivered By Post Complications Tubal Sterilization Discharge Date Comments 4 Discharge Information Feeding Method Contraceptive Method Maternal HG B and HCT Levels Ob Episode Information Episode Created Date Number of Fetuses Patient Bloodtype Patient rh Status Prepregnancy Weight lbs Domestic Partner Domestic Partner Phone Father Name Lehr Attendant Status 01/31/20 25 1 AB Positive CLOSED Fetus Data First Name Last Name Admitted to NICU Weight (g) Sex Living Outcome Pediatric Complications Fetus ID Race Codes Race Delivery Type Greyso n false 3515.33 8 M true Full Term Baby was born with partial circumsision [id number] Primary Problems Problem Notes Problem Name Start Date End Date Resolution Snomed Code Not e Sterilization requested 01/30/2025 [id number] BTL with [facility] Past history of section 01/30/2025 [id number] [facility] Anemia of 01/30/2025 [id number] 12/2024: Hgb 11.0 Donta Calculation Initial Donta Date Initial Exam Date Initial Exam Provider Initial Ultrasound Date Last Menstrual Period Date Ultra Sound Weeks Gestation 03/27/2025 01/30/2025 06/03/2024 0 Eighteen To Twenty Week Donta Update Ultra Sound Date Fundal Height At Umbil Quickening Date Ultra Sound Latest Weeks Gestation Final Donta Confirmed By Final Donta Confirmed Date Final Donta Date Ultra Sound Latest Days Gestation 0 01/30/2025 03/27/20 25 0 Pre- Flowsheet Flowsheet Date 01/30/2025 Aldridge Score Blood Edema Fundus Height Fundus Units Glucose Ketones Leukocytes Nitrite Labor Signs Protein Cervic Dilation Cervic Effacement Cervic Station Type Weight in lbs Pre/Post Dialysis Refused Weight 150.627524440090 BP Diastolic BP Location Tested BP Systolic BP Type 74 L arm 114 sitting Fetus Heart Rate Present A 127 Fetus Movement A Yes Comments Patient presents as a transf er of care at 32 weeks. She was previously seen by [facility], last seen 01/16. Her has been complicated by hx of c section x2, FTP at 9cm in her first delivery, then 33 week for contractions in her second delivery. WIll plan for RCS on 03/20. otherwise uncomplicated. Passed 3h GTT, failed 1h GCT. Mild anemia, taking Fe in prenatals. Negative HIV/RPR. Patient would like to undergo permanent sterilization with bilateral salpingectomy at time of c section. She does not desire any future children. We discussed that this procedure is permanent and irreversible, and she voices understanding. Tubal forms signed today. Hx of depression, previously on sertraline, but self d/c'd. Would like to restart . EFW 27%, vertex. RTC 2 weeks. Flowsheet Date 02/11/2025 Aldridge Score Blood Edema Fundus Height Fundus Units Glucose Ketones Leukocytes Nitrite Labor Signs Protein Cervic Dilation Cervic Effacement Cervic Station neg none Type Weight in lbs Pre/Post Dialysis Refused Weight 155.122758304672 BP Diastolic BP Location Tested BP Systolic BP Type 72 L arm 114 sitting Fetus Heart Rate Present A 140 Fetus Movement A Yes Comments Good movement. Was in the ER on Tuesday for contractions/pain, mostly lower back pain and round ligament pain. Was given tocolysis and contractions have mostly resolved. Dilated 0.5cm at that time. No other issues. Discussed preadmission. C section and bilateral salpingectomy scheduled 03/25. RTC 2 weeks. Flowsheet Date 02/27/2025 Aldridge Score Blood Edema Fundus Height Fundus Units Glucose Ketones Leukocytes Nitrite Labor Signs Protein Cervic Dilation Cervic Effacement Cervic Station neg trace Type Weight in lbs Pre/Post Dialysis Refused Weight 156.869288683715 BP Diastolic BP Location Tested BP Systolic BP Type 73 L arm 109 sitting Fetus Heart Rate Present A 145 Fetus Movement A Yes Comments Baby active, no regular cont ractions, bleeding or LOF. RCS with BTL scheduled. GBS collected today. Labor precautions reviewed. RTC 1 week. Flowsheet Date 03/06/2025 Aldridge Score Blood Edema Fundus Height Fundus Units Glucose Ketones Leukocytes Nitrite Labor Signs Protein Cervic Dilation Cervic Effacement Cervic Station Type Weight in lbs Pre/Post Dialysis Refused BP Diastolic BP Location Tested BP Systolic BP Type Fetus Heart Rate Present Fetus Movement Comments Flowsheet Date 03/06/2025 Aldridge Score Blood Edema Fundus Height Fundus Units Glucose Ketones Leukocytes Nitrite Labor Signs Protein Cervic Dilation Cervic Effacement Cervic Station neg none Type Weight in lbs Pre/Post Dialysis Refused BP Diastolic BP Location Tested BP Systolic BP Type Fetus Heart Rate Present A 129 Fetus Movement A No Comments Good movement. Continu es to have irregular contractions, SVE unchanged on Tuesday. GBS negative. EFW 28%, vertex. RTC 1 week. Flowsheet Date 03/13/2025 Aldridge Score Blood Edema Fundus Height Fundus Units Glucose Ketones Leukocytes Nitrite Labor Signs Protein Cervic Dilation Cervic Effacement Cervic Station Type Weight in lbs Pre/Post Dialysis Refused Weight 159.729997904346 BP Diastolic BP Location Tested BP Systolic BP Type 84 L arm 132 sitting Fetus Heart Rate Present A 145 Fetus Movement A Yes Comments Good movement. Contrac tions irregular. No bleeding or LOF. Some increased pelvic pressure. SVE unchanged. RTC 1 week. Flowsheet Date 03/20/2025 Aldridge Score Blood Edema Fundus Height Fundus Units Glucose Ketones Leukocytes Nitrite Labor Signs Protein Cervic Dilation Cervic Effacement Cervic Station neg none 1cm 50% -3 Type Weight in lbs Pre/Post Dialysis Refused Weight 162.796987748095 BP Diastolic BP Location Tested BP Systolic BP Type 83 L arm 128 sitting Fetus Heart Rate Present A 155 Fetus Movement A Yes Comments Good movement. Some st ronger contractions. Lost mucous plug. Having more pelvic pressure. RCS scheduled for Tuesday with bilateral salpingectomy. Labor precautions reviewed. Flowsheet Date 03/25/2025 Aldridge Score Blood Edema Fundus Height Fundus Units Glucose Ketones Leukocytes Nitrite Labor Signs Protein Cervic Dilation Cervic Effacement Cervic Station Type Weight in lbs Pre/Post Dialysis Refused BP Diastolic BP Location Tested BP Systolic BP Type Fetus Heart Rate Present Fetus Movement Comments Flowsheet Date 04/02/2025 Aldridge Score Blood Edema Fundus Height Fundus Units Glucose Ketones Leukocytes Nitrite Labor Signs Protein Cervic Dilation Cervic Effacement Cervic Station Type Weight in lbs Pre/Post Dialysis Refused Weight 144.55742428804 BP Diastolic BP Location Tested BP Systolic BP Type 83 L arm 117 sitting Fetus Heart Rate Present Fetus Movement Comments Menstrual History Last Menstrual Date Menses Monthly On Bcp Conception Prior Menses Frequency Hcg Plus Date Menarche Onset Age 1006/03/2024 Delivery Information Delivery Date Delivery Type Labor Anesthesia Weeks Gestation Incision Type Labor Labor Length Hrs Delivered By Post Complications Tubal Sterilization Discharge Date Comments 5 Induce d 39.5 false None true Discharge Information Feeding Method Contraceptive Method Maternal HG B and HCT Levels Ob Episode Information Episode Created Date Number of Fetuses Patient Bloodtype Patient rh Status Prepregnancy Weight lbs Domestic Partner Domestic Partner Phone Father Name Lehr Attendant Status 01/31/20 25 1 CLOSED Fetus Data First Name Last Name Admitted to NICU Weight (g) Sex Living Outcome Pediatric Complications Fetus ID Race Codes Race Delivery Type , [place] [id number] Donta Calculation Initial Donta Date Initial Exam Date Initial Exam Provider Initial Ultrasound Date Last Menstrual Period Date Ultra Sound Weeks Gestation 0 Eighteen To Twenty Week Donta Update Ultra Sound Date Fundal Height At Umbil Quickening Date Ultra Sound Latest Weeks Gestation Final Donta Confirmed By Final Donta Confirmed Date Final Donta Date Ultra Sound Latest Days Gestation 0 0 Menstrual History Last Menstrual Date Menses Monthly On Bcp Conception Prior Menses Frequency Hcg Plus Date Menarche Onset Age Delivery Information Delivery Date Delivery Type Labor Anesthesia Weeks Gestation Incision Type Labor Labor Length Hrs Delivered By Post Complications Tubal Sterilization Discharge Date Comments 5 Discharge Information Feeding Method Contraceptive Method Maternal HG B and HCT Levels
--- OUTSIDE RECORDS SUMMARY | 2025-05-23 13:25 | XMS_ITS | Encounter Summary ---
Author Organization [facility] Address [address] [place] [address] Care Team Providers Care Interactive Designer Name Role Phone Malik Garcia MD Primary Care Provider Encounter Details Date Type Department Care Team (Late st Contact Info) Description 01/27/2019 Abstract SFL CONVERSION [address] [place] [address] , Generic Conversion, Social History Tobacco Use Types Packs/Day Years Used Date Smoking Tobacco: Never Assessed Comments Unknown Sex and Gender Information Value Date Recorded Sex Assigned at Female 10/11/2024 11:44 AM CLINICAL EDUCATOR Legal Sex Female 11:02 PM CLINICAL EDUCATOR Gender Identity Not on file Sexual Orientation Not on file documented as of this encounter Plan of Treatment Not on file documented as of this encounter Visit Diagnoses Not on filedocumented in this encounter Care Teams Interactive Designer Relationship Specialty Start Date End Date Malik Garcia MD [address] [facility] [address] [address] [place] [phone] PCP - General FAMILY PRACTICE 10/11/24 documented as of this encounter
--- OUTSIDE RECORDS SUMMARY | 2025-05-23 13:25 | XMS_ITS | Clinical Summary ---
Author Organization [facility] at the [facility] Address [address] [place] [address] Care Team Providers Care Pantry Chef Name Role Phone Herbert Schilling MD Primary Care Provider [phone] Herbert Schilling MD Unavailable [phone] No, Physician Unavailable Allergies Active Allergy Reactions [...] oz pur e alcohol) Social Connection and Isolation Panel Answer Date Recorded In a typical week, how many times do you talk on the phone with family, friends, or neighbors? More than three times a week 07/05/2022 How often do you get togethe r with friends or relatives? Three times a week 07/05/2022 How often do you attend chur ch or episcopalian services? Never 07/05/2022 Do you belong to [...] housing, medical care, and heating? Hard 07/05/2022 [facility] - [...] place to sleep or slept in a long term (including now)? No 07/05/2022 [place] Depression Scale Answer Date Recorded [place] Depression Scale Total 21 07/26/2022 The thought [...] on file Legal Sex Female 9:44 AM LEAD BURNER Gender Identity Female 01/12/2023 4:22 PM CDT [...] IS) Devin lopez MD Complications:Cephalopelvic Disproportion Delivery Location:[facility] 2021 33w 3d 0h 02m 0h 02m 2.04 kg (4 lb 8 oz) F C-Sec tion Spinal Y Livin g 3 5 GREEN ,GIRL SANDOR S Emir Mitchell MD Complications:None Delivery Location:[facility] Main C ampus ([facility] L AND D PROCEDURE) Last [...] Screening 07/26/2023 07/26/2022 Influenza Vaccine (#1) 2025 , 04/24/2016, 06/11/2015 DTaP/Tdap/Td Vaccine (2 - Td or Tdap) 04/24/2026 04/24/2016 Pneumococcal vaccine <65 Aged Out No longer eligible based on patient's age to complete this topic Insurance Advance Directives For more information, please contact: [phone] * Full Code (Latest Code Status on File) Date Activated Date Inactivated Comments 07/02/2022 11:37 PM 07/06/2022 3:49 PM * Full Code Date Activated Date Inactivated Comments 07/02/2022 1:35 PM 07/02/2022 11:37 PM Care Teams Pantry Chef Relationship Specialty Start Date End Date Herbert Schilling MD PCP - General Family Medicine 07/01/22 Herbert Schilling MD Family Medicine 07/01/22 No, Physician 05/13/21
--- OUTSIDE RECORDS SUMMARY | 2025-05-23 13:25 | XMS_ITS | Clinical Summary ---
Author Organization [facility] Address [address] [place] [address] Care Team Providers Care Fibre Optic Cable Splicer Name Role Phone Malik Garcia MD Primary Care Provider [phone] Allergies Active Allergy Reactions Criticality Noted Date Comments Penicillins Anaphylaxis High 10/11/2024 As a child Medications vitamin w/ iron-folic acid ( PLUS) 29-1 MG Tab tablet Take 1 tablet by mouth daily. Active Encounters Date Type Department Care Team Description 03/08/2025 6:38 PM CDT - 03/08/2025 8:30 PM T Hospital Encounter [facility] [address] [place] [address] [place] [address] Demetrius Donahue MD Contractions Discharge Disposition: Home or Self Care (Routine Discharge) 02/28/2025 12:32 AM CDT - 02/28/2025 3:17 AM [facility] Hospital Encounter [facility] [address] [place] [address] [place] [address] Leena Harrison MD Contractions Discharge Disposition: Home or Self Care (Routine Discharge) 02/28/2025 Travel from Last 3 Months Social History Tobacco Use Types Packs/Day Years Used Date Smoking Tobacco: Never Smokeless Tobacco: Never Tobacco Cessation:Counseling Given: Not Answered Alcohol Use Standard Drinks/Week Comments Never 0 (1 standard drink = 0.6 oz pur e alcohol) Estimated Date of Delivery Comme nts Yes 03/27/2025 Sex and Gender Information Value Date Recorded Sex Assigned at Female 10/11/2024 11:44 AM AIR TOOL OPERATOR Legal Sex Female 11:02 PM AIR TOOL OPERATOR Gender Identity Not on file Sexual [...] - 3-dose SCDM series) 12/05/2022 COVID-19 Vaccine (2 - season) 2025 01/12/2021 DTaP, Tdap and Td Vaccines (4 [...] 02/28/2025 12:38 AM CDT Irregular contractions (HHS/HCC) from Last 3 Months Results * DRUG SCREEN RAPID (03/08/2025 6:45 PM CDT) CANNABINOIDS SCREEN (U) NEGATIVE NEGATIVE 03/08/2025 7:19 PM CDT [facility] PHENCYCLIDINE PCP (U) NEGATIVE NEGATIVE 03/08/2025 7:19 PM CDT [facility] COCAINE METABOLITES (U) NEGATIVE NEGATIVE 03/08/2025 7:19 PM CDT [facility] METHAMPHETAMINE SCREEN (U) NEGATIVE NEGATIVE 03/08/2025 7:19 PM CDT [facility] OPIATE SCREEN (U) NEGATIVE NEGATIVE 025 7:19 PM CDT [facility] AMPHETAMINE SCREEN (U) NEGATIVE NEGATIVE 03/08/2025 7:19 PM CDT [facility] BENZODIAZEPINES SCREEN (U) NEGATIVE NEGATIVE 03/08/2025 7:19 PM CDT [facility] TRICYCLIC ANTIDEPRESSANT SCREEN (U) NEGATIVE NEGATIVE 03/08/2025 7:19 PM CDT [facility] METHADONE (U) NEGATIVE NEGATIVE 03/08/2025 7:19 PM CDT [facility] BARBITURATES SCREEN (U) NEGATIVE NEGATIVE 03/08/2025 7:19 PM CDT [facility] OXYCODONE SCREEN (U) NEGATIVE NEGATIVE 03/08/2025 7:19 PM CDT [facility] URINE TOX COMMENT THIS TEST METHODOLOGY IS DESIGNED AND OFFERED A RAPID TURNAROUND, QUALITATIVE SCREENING PROCEDURE TO AID IN THE IMMEDIATE MEDICAL ASSESSMENT OF PATIENTS SUSPECTED OF SUBSTANCE ABUSE. 03/08/2025 6:50 PM CDT [facility] Comment: CLINICAL CONSIDERATION AND PROFESSIONAL JUDGMENT MUST BE APPLIED TO ANY DRUG OF ABUSE TEST RESULT, BOTH POSITIVE AND NEGATIVE. CONFIRMATORY QUANTITATIVE RESULTS ARE AVAILABLE THROUGH OUR [facility]FER[facility]. URINE SPECIMEN / Unknown 03/08/2025 6:45 PM CDT us Demetrius Donahue MD URINE ORDERABLES Final Result [facility] [address] [place] [address], [place] [phone] * URINALYSIS (03/08/2025 6:45 PM CDT) Only the most recent of2 resultswithin the time period is included. COLOR (U) YELLOW 03/08/2025 7:09 PM CDT [facility] TRANSPARENCY CLEAR 03/08/2025 7:09 PM CDT [facility] SPECIFIC GRAVITY (U) 1.015 1.000 - 1.025 03/08/2025 7:09 PM CDT [facility] U PH 7.0 5.0 - 8.0 03/08/2025 7:09 PM CDT [facility] LEUKOCYTES (U) NEGATIVE NEGATIVE 03/08/2025 7:09 PM CDT [facility] NITRITES NEGATIVE NEGATIVE 03/08/2025 7:09 PM CDT [facility] PROTEIN RANDOM (U) NEGATIVE NEGATIVE 03/08/2025 7:09 PM CDT [facility] GLUCOSE (U) NEGATIVE NEGATIVE 03/08/2025 7:09 PM CDT [facility] KETONES MG/DL (U) NEGATIVE NEGATIVE 03/08/2025 7:09 PM CDT [facility] UROBILINOGEN 0.2 <1.0 EU/DL 03/08/2025 7:09 PM CDT [facility] BILIRUBIN (U) NEGATIVE NEGATIVE 03/08/2025 7:09 PM CDT [facility] BLOOD (U) NEGATIVE NEGATIVE 03/08/2025 7:09 PM CDT [facility] WBC/HPF 0-5 0 - 5 /HPF 03/08/2025 7:09 PM CDT [facility] RBC/HPF 0-5 0 - 5 /HPF 03/08/2025 7:09 PM CDT [facility] EPI/LPF MODERATE /LPF 03/08/2025 7:09 PM CDT [facility] URINE SPECIMEN OBTAINED BY CLEAN CATCH PROCEDURE / Unknown 03/08/2025 6:45 PM CDT us Demetrius Donahue MD URINE ORDERABLES Final Result [facility] [address] [place] [address], from Last 3 Months Insurance MEDICAID Care Teams Fibre Optic Cable Splicer Relationship Specialty Start Date End Date Malik Garcia MD [address] [place] [address] [place] [address] PCP - General FAMILY PRACTICE 10/11/24
[2025-05-23 13:38] LABS: Thyroid Stimulating Hormone 1.900 uIU/mL (0.465-4.680)
[2025-05-23 13:39] LABS: Add Urine Microscopic? NO; Appearance Urine Clear (Clear); Glucose Urine UA Negative (Negative); Leukocyte Esterase Ur Negative LEU/UL (Negative); Nitrate Urine Negative (Negative); Specific Grav Ur 1.025 (1.010-1.020)
[2025-05-23] MEDS: AZITHROMYCIN 250 MG TABLET 500 MG PO (13:53)
[2025-05-23 14:03] VITALS: BP 113/66; PULSE 58; RESP 16; O2SAT 99
== END 2025-05-23 14:00 | disposition home or self-care (01) ==
PROVIDERS: Emergency Provider Emergency Medicine; PCP Family Medicine
DX: E86.0 Dehydration (principal); J01.10 Acute frontal sinusitis, unspecified; Z87.891 Personal history of nicotine dependence
CPT/HCPCS: 36415; 80053; 81003; 83605; 84443; 85025; 93005; 96360; 99283; A9270; J7030

== ENCOUNTER 2025-07-14 21:10 | Emergency (ER) | payer OTHER, SELFPAY ==
[2025-07-14 21:10] VITALS: BP 132/82; PULSE 78; RESP 20; TEMP 36.1; O2SAT 100
--- OUTSIDE RECORDS SUMMARY | 2025-07-14 21:15 | XMS_ITS | Clinical Summary ---
Author Organization [facility] Address [address] [place] [address] Phone Care Team Providers Care Java Software Architect Name Role Phone Sammy Garcia MD Primary Care Provider [phone] Herbert Schilling MD Unavailable [phone] Allergies Active Allergy Reactions Criticality Noted Date [...] Years Used Date Smoking Tobacco: Former Cigarettes 0 Q uit: 03/13/2015 Smokeless Tobacco: Never Alcohol [...] Comments Hepatitis C Virus (HCV) Screening 1995 Varicella Immunization (2 of 2 - 2-dose childhood series) 08/02/2001 05/10/2001 Pap Smear 12/05/2016 Human Papillomavirus (HPV) Immunization (1 - 3-dose SCDM series) 12/05/2022 Influenza Immunization (#1) 04/22/202506/23, 06/16/2022, 04/24/2016, Additional history exists SARS-COV-2 Immunization (2 - 2024- season) 2025 01/12/2021 Td Immunization Every 10 [...] measures to stabilize the patient. Care Teams Java Software Architect Relationship Specialty Start Date End Date Sammy Garcia MD [address] [place] [address] [place] [address] PCP - General Family Medicine 05/14/24 Herbert Schilling MD [address] [place] [address] [place] [address] Family Medicine 05/14/24
--- OUTSIDE RECORDS SUMMARY | 2025-07-14 21:15 | XMS_ITS | Clinical Summary ---
Author Organization [facility] at the [facility] Address [address] [place] [address] Care Team Providers Care Cable Wirer Name Role Phone Herbert Schilling MD Primary Care Provider [phone] Herbert Schilling MD Unavailable [phone] No, Physician Unavailable Allergies Active Allergy Reactions [...] often do you attend chur ch or samaritan services? Never 07/05/2022 Do you belong to any clubs o r organizations such as presybeterian groups, unions, fraternal or athletic groups, or [...] housing, medical care, and heating? Hard 07/05/2022 [facility] - Occupational Stress [...] a nursing home (including now)? 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 Gender Identity Female 01/12/2023 4:22 PM CDT [...] IS) Devin lopez MD Complications:Cephalopelvic Disproportion Delivery Location:[facility] 2021 33w 3d 0h 02m 0h 02m 2.04 kg (4 lb 8 oz) F C-Sec tion Spinal Y Livin g 3 5 GREEN ,GIRL SANDOR S Emir Mitchell MD Complications:None Delivery Location:[facility] Main C ampus ([facility] L AND D PROCEDURE) Last Filed [...] Advance Directives For more information, please contact: [phone] * Full Code (Latest Code Status on File) Date Activated Date Inactivated Comments 07/02/2022 11:37 PM 07/06/2022 3:49 PM * Full Code Date Activated Date Inactivated Comments 07/02/2022 1:35 PM 07/02/2022 11:37 PM Care Teams Cable Wirer Relationship Specialty Start Date End Date Herbert Schilling MD PCP - General Family Medicine 07/01/22 Herbert Schilling MD Family Medicine 07/01/22 No, Physician 05/13/21
--- OUTSIDE RECORDS SUMMARY | 2025-07-14 21:15 | XMS_ITS | Continuity of Care Document ---
Author Organization [facility] [place] Address [address] [place] [address] Assessment No assessment recorded. Plan of Treatment Reminders Order Date Submit Date Provider Last Modified By Organization Details Last Modified Time Details Appointments None record ed. Lab None record ed. Referral None record ed. Procedures None record ed. Surgeries None record ed. Imaging None record ed. Medication Orders None record ed. Patient TargetsNo targets recorded. Patient InstructionsNo instructions recorded. Reason for Referral None Reported. Problems Name Problem SNOMED Code Status Onset Date Resolution Date Notes Provider Name and Address Organization Details Recorded Time 60066762 Completed 202404/02/2025 Izabel young, [facility] 09:40:50 Steriliza tion requested [id number] Completed 2024 BTL with VIRGINIA TAVERAS MD [address], [place], [address], [facility] 11:56:35 Past history of section [id number] Completed 2024 VIRGINIA TAVERAS MD [address], [place], [address], [facility] 11:56:47 Anemia of 74376299 Completed 12/2024 : Hgb 11.0 ILIR TAVERAS MD [address], [place], [address], [facility] 06/11/202 5 11:57:06 Problem Notes None recorded. Procedures Surgical History Date Name Laterality Status Provider Name and Address Organization Details Recorded Time 5 SECTION (SURG) completed DIGNA Pérez [facility] 03/27/2025 17:53:23 2 [facility] 10:34:28 6 Caesarean Section completed [facility] 01/30/2025 10:34:28 Imaging Results None recorded. Procedure Notes None recorded. Medical Equipment None Reported. Allergies Allergen ID Allergen Name Allergen Category Reaction Reaction Severity Criticality Documentation Date Start Date Code Code System Note Provider Name and Address Organization Details Recorded Time 13416 Penicilli n Not available Not available Not available Not available 01/30/20251995 97442 RxNorm Kenyetta Lundberg [facility] 5 10:34:23 Medications Name Sig Start [...] completed Not Available Not Available Not Available M- Plus 27 mg iron-1 mg tablet TAKE 1 TABLET BY MOUTH EVERY DAY FOR 30 DAYS active Not Available Not Available No t Available Vitals Date Recorded Body height Body mass index (BMI) Body weight Systolic And Diastolic Provider Name and Address Organization Details Last Updated DateTime 04/30/2025 154.94 cm 27.8 kg/m2 50182.08 g 117/78 mm[Hg] Patricia Quintero [facility] 04/30/2025 12:38:21 Social History Question Answer Notes LastModified by Organizat ion Details LastModified Time Tobacco Smoking Status Former Smoker Kenyetta Toño [facility], [facility] 01/30/2025 10:39:56 Are You Blind [...] Or The Highest Degree You Have Received? [id number] Information not available 01/30/2025 Are There Any Guns Present In Your Home? No Information not available 01/30/2025 Do You Use Protection During Sex? No [email or web address] Information not available 04/02/2025 Do You Use Your Seat Belt Or Car Seat Routinely? No Information not available 01/30/2025 Are You Sexually Active? Yes Information not available 01/30/2025 Do You Have Smoke And Carbon Monoxide Detectors In Your Home? Yes Information not available 01/30/2025 Do You Use Sunscreen Routinely? No Information not available 01/30/2025 Has Tobacco Cessation Counseling Been Provided? No [email or web address] Information not available 04/02/2025 Do You Have Difficulty Walking Or Climbing Stairs? No Information not available 01/30/2025 Sex: Unknown Functional Status Question Answer Note LastModified by Organizat ion Details LastModified Time Do you use any illicit or recreational drugs? No Information not available 01/30/2025 Do you or have you ever used any other forms of tobacco or nicotine? No Information not available 04/02/2025 What is your [...] anxious, or unable to sleep at night)? [id number] Information not available 01/30/2025 Family History Relationship Description Onset Age of this Age Resolved Age Notes LastModified by Organization Details LastModified Time Father Asthma Not available 10:39:39 Medical History Condition Response Allergies (Food, seasonal, environmental ) N Other N Blood Transfusion N Breast Cancer N Drug/Latex Allergies/Reactions N Dermatologic Disorders N Lung Disease N Defects or Inherited Disease N Breast Problem N Gestational Diabetes N Hematologic disorders N Anesthesia Complications N History of STI N Deep Vein Thrombosis N Polycystic ovary syndrome N Anxiety Disorder N Autoimmune disease N Arthritis N Polyps N Infertility N Acid Reflux (GERD) N History of abnormal pap N Cancer N Varicosities N Stroke N Neurologic/Epilepsy N Endometriosis N High Cholesterol N Fibromyalgia N Headaches N Kidney Disease N Heart Problems N Thyroid Problems N Kidney or Bladder Problems N GI Problems N Eating Disorder [...] ICD10 Code Diagnosis IMO Codes Diagnosis Note [id number] ILIR TAVERAS MD [place] [address] [address] 04/02/2025 09:32:30 04/02/2025 10:04:57 Past history of section [id number] Z98.891 [id number] S/p c section on . Incision well-heale d without any signs of infection2 . s/p bilateral salpingect lennie at time of c section. She will continue to abstain from intercours e until her 6wk visit.3. RTC 4wks for post-partu m check [id number] ILIR TAVERAS MD [place] [address] [address] 04/30/2025 12:07:48 04/30/2025 13:07:25 care status [id number] Z39.2 [id number] S/p RLTCS 6 weeks ago here today [...] by Organization Details LastModified Time None Recorded Payers Encounter Date Sequence Insurance Name Policy Number Policy Koehler Covered Member ID Koehler Member ID Guarantor Name 04/30/2025 1 [facility] (MEDICAID REPLACEMENT - HMO) Ricardo Lu [id number] Ricardo Lu Notes Date Note Type Note Provider Name and Address Organization Details Recorded Time 04/30/2025 text/html VisitReported by Patient S/p RLTCS [...] active since delivery. ILIR TAVERAS MD [address], [place], [address], [facility] 04/30/2025 12:53:32 OBGyn Episode No OBEpisode recorded.
--- OUTSIDE RECORDS SUMMARY | 2025-07-14 21:15 | XMS_ITS | Encounter Summary ---
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
--- OUTSIDE RECORDS SUMMARY | 2025-07-14 21:15 | XMS_ITS | Encounter Summary ---
Author Organization [facility] Address [address] [place] [address] Phone Care Team Providers Care Malted Milk Mixer Name Role Phone Herbert Schilling MD Primary Care Provider [phone] Sammy Garcia MD Primary Care Provider [phone] Herbert Schilling MD Unavailable [phone] Reason for Referral * PT/OT/ST (Routine) - Closed Specialty Diagnoses / Procedures Referred By Contac t Referred To Contact Physical Therapy Diagnoses Spinal stenosis, cervical region Sammy Garcia MD [address] [place] [address] [place] [address] Phone: tel: fax: [facility] [address] [address] Phone: tel: fax: Referral ID Status Reason Start Date Expiration Date Visits Re quested Visits Authorized [id number] Closed 05/11/2024 50 50 Scheduling Instructions Encounter Details Date Type Department Care Team (Late st Contact Info) Description 05/11/2024 Transcribe Orders [facility] [address] [place] [address] Sammy Garcia MD [address] [place] [address] [place] [address] Spinal stenosis, cervical region (Primary Dx) Social [...] Primary documented in this encounter Care Teams Malted Milk Mixer Relationship Specialty Start Date End Date Herbert Schilling MD [address] [place] [address] [place] [address] PCP - General Family Medicine 08/25/21 05/13/24 Sammy Garcia MD [address] [place] [address] [place] [address] PCP - General Family Medicine 05/14/24 Herbert Schilling MD [address] [place] [address] [place] [address] Family Medicine 05/14/24 documented as of this encounter
--- OUTSIDE RECORDS SUMMARY | 2025-07-14 21:15 | XMS_ITS | Clinical Summary ---
Author Organization [facility] Address [address] [place] [address] Care Team Providers Care Philatelic Consultant Name Role Phone Malik Garcia MD Primary Care Provider [phone] Allergies Active Allergy Reactions Criticality Noted Date Comments Penicillins Anaphylaxis High 10/11/2024 As a child Medications vitamin w/ iron-folic acid ( PLUS) 29-1 MG Tab tablet Take 1 tablet by mouth daily. 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 Gender Identity Not on file Sexual Orientation [...] Last Done Comments Annual Physical 12/05/1998 Hepatitis A Vaccines (2 of 2 - 2-dose series) 2005 06/07/2005 Hepatitis C 12/05/2013 HPV Vaccines (1 - 3-dose SCDM series) 12/05/2022 COVID-19 Vaccine (2 - season) 2025 01/12/2021 Influenza Adult (#1) 2025 07/15/2023, 04/24/20 16 DTaP, Tdap and Td Vaccines (4 - [...] patient's age to complete this topic RSV Immunizations Under 20 Months Aged Out No longer eligible based on patient's age to complete this topic Insurance MEDICAID Care Teams Philatelic Consultant Relationship Specialty Start Date End Date Malik Garcia MD [address] [facility] [place] [address] PCP - General FAMILY PRACTICE 10/11/24
--- NOTE | 2025-07-14 21:21 | PC.NURSE ---
covid swab sent to lab
[2025-07-14 21:59] LABS: Strep Group A RT-PCR NOT DETECTED (Negative)
[2025-07-14 22:10] LABS: Influenza A QL RT-PCR Negative (Negative); Influenza B QL RT-PCR Negative (Negative); RSV RNA, RT-PCR Negative (Negative); SARS-CoV-2 RNA PCR Negative (Negative)
--- NOTE | 2025-07-14 22:16 | ED_ITS ---
HPI - URI/Sore Throat General Chief Complaint: Upper Respiratory Infection Stated Complaint: sore throat Time Seen by Provider: 07/14/25 21:15 Source: patient Mode of arrival: ambulatory Limitations: no limitations History of Present Illness HPI Narrative: Patient is a 29-year-old female with a sore throat for the past week and worse over the past 2 days. Associated malaise and fatigue with illness. MD elicited complaint: sore throat Pertinent past history: other (None) Onset (ago): week(s) (1) Consistency: constant Severity: moderate Pain scale (0-10): 4 Description of mucous: watery Able to tolerate fluids by mouth: Yes Exacerbating factors: nothing Relieving factors: nothing Context: other (Patient has not felt well over the past week with a sore throat) Associated symptoms: sore throat Treatments prior to arrival: none Related Data Allergies Allergy/AdvReac Type Severity Reaction Status Date / Time Penicillins Allergy Anaphylaxis Verified 07/14/25 21:18 Review of Systems Review of Systems: All systems reviewed & are unremarkable except as noted in HPI and below Constitutional: Constitutional: Reports no additional constitutional complaints Eyes: Eyes: Reports no additional eye complaints ENT: Reports system reviewed and no additional complaints, except as documented Cardiovascular: Cardiovascular: Reports no additional cardiovascular complaints Respiratory: Respiratory: Reports no additional respiratory complaints Gastrointestinal: Gastrointestinal: Reports no additional gastrointestinal complaints Genitourinary: Genitourinary: Reports no additional female genitourinary complaints Musculoskeletal: Musculoskeletal: Reports no additional musculoskeletal complaints Integumentary/Breasts: Skin/Breast: Reports system reviewed and no additional complaints, except as docu Neurologic: Reports system reviewed and no additional complaints, except as documented Psychiatric: Psychiatric: Reports no additional psychiatric complaints Endocrine: Endocrine: Reports no additional endocrine complaints Hematologic/Lymphatic: Hematologic/Lymphatic: Reports no additional hematologic/lymphatic complaints Allergic/Immunologic: Allergic/Immunologic: Reports no additional allergic/immunologic complaints PMFSH Past Medical History Medical History Bipolar 1 disorder, mixed Surgical History Surgical History Previous section x2 Family History Family History Grandparent Acute myocardial infarction Grandparent Ovarian cancer Social History Social History Smoking status: Former smoker Substance use: never Do You Feel Safe in your Home?: Yes Lack of Transportation: No Lack of Food: Never True Current Housing: I Have Housing Concerned About Future Housing: No Difficulty Paying Gas/Electric Bills: No Difficulty Paying for Meds: No Currently Unemployed: No Education: High School Diploma/GED Difficulty w/ Childcare or Family Care: No Living arrangements: with family Gender identity (if verbalized by the patient): Female Spiritual care concerns: No Exam Const: General: healthy appearing Nutritional Appearance: well nourished Orientation/consciousness: patient oriented x3 Limitations: no limitations HENMT: Head: normal to inspection Ears: external ears normal Face/Nose/Sinus: Normal external nose present Eyes: Conjunctivae: conjunctivae normal Pupils: Equal, round and reactive pupils present EOM: EOMs intact bilaterally Neck: Neck: normal visual inspection Chest: Chest palpation & inspection: normal inspection of the chest Resp: Effort & Inspection: normal respiratory effort and not labored Auscultation: clear to auscultation bilaterally and no crackles Cardio: Rate: regular rate Rhythm: regular rhythm Heart sounds: Murmur heart sound present GI: Inspection: non-distended GI Palp: Yes Soft to palpation, No Tenderness to palpation present (GI), No Guarding due to palpation present (GI), No Rigid due to palpation, No Hernia present, No Palpable mass present and No Rebound tenderness present Auscultation: normal bowel sounds : General: Yes bladder normal to palpation Back/Spine/Pelvis: Back: no CVA tenderness Skin: General skin exam: normal color Rashes: no rashes Wounds: no wounds Neuro: General: patient oriented x3, moves all extremities and no meningeal signs Extrem: General: normal to inspection, no clubbing, cyanosis or edema and no pedal edema Psych: Mental Status: mental status grossly normal Affect: normal affect Attitude: cooperative Course Vital Signs Vital signs: Vital Signs Temperature 36.1 C L 07/14/25 21:10 Pulse Rate 78 07/14/25 21:10 Respiratory Rate 20 07/14/25 21:10 Blood Pressure 132/82 07/14/25 21:10 Pulse Oximetry 100 07/14/25 21:10 Oxygen Delivery Room Air 07/14/25 21:10 Temperature 36.1 C L 07/14/25 21:10 Pulse Rate 78 07/14/25 21:10 Respiratory Rate 20 07/14/25 21:10 Blood Pressure 132/82 07/14/25 21:10 Pulse Oximetry 100 07/14/25 21:10 Oxygen Delivery Room Air 07/14/25 21:10 MDM - URI/Sore Throat MDM Narrative Medical decision making narrative: Patient is a 29-year-old female with sore throat for the past week. Strep test and COVID panel. Lab Data Attestation: I reviewed the patient's lab results. Labs: Lab Results 07/14/25 07/14/25 Range/Units 21:17 21:18 Influenza A (RT-PCR) Negative (Negative) Influenza B (RT-PCR) Negative (Negative) RSV (RT-PCR) Negative (Negative) SARS-CoV-2 RNA (RT-PCR) Negative (Negative) Group A Strep (PCR) Not detected (Negative) Discharge Plan Discharge Clinical Impression: Pharyngitis Qualifiers: Pharyngitis/tonsillitis etiology: unspecified etiology Qualified Code(s): J02.9 - Acute pharyngitis, unspecified Patient Disposition: Home Condition: Stable Instructions: Antibiotic Form, Pharyngitis (ED) Patient Language: Citizen Of [place] Prescriptions: New azithromycin 250 mg tablet 250 mg PO DAILY 4 Days Qty: 4 0RF prednisone 20 mg tablet 20 mg PO DAILY 2 Days Qty: 2 0RF Follow-up/Referrals: Radha,MD Sammy [Primary Care Provider, Unknown] Stand Alone Forms: Work/School Release IP Time of Disposition: 22:24
[2025-07-14] MEDS: AZITHROMYCIN 250 MG TABLET 500 MG PO (22:24)
[2025-07-14 22:28] VITALS: BP 133/84; PULSE 64; RESP 16; O2SAT 100
== END 2025-07-14 22:42 | disposition home or self-care (01) ==
PROVIDERS: Emergency Provider Emergency Medicine; PCP Family Medicine
DX: J02.9 Acute pharyngitis, unspecified (principal); Z87.891 Personal history of nicotine dependence; Z20.822 Contact with and (suspected) exposure to COVID-19
CPT/HCPCS: 87637; 87651; 99283; A9270